=== PATIENT | male | born 1950 | race Caucasian/White ===

== ENCOUNTER → 2024-07-24 | Outpatient (CLI) | payer OTHER, SELFPAY ==
[2024-07-24 08:54] LABS: Glucose Estimated Average 103 mg/dL (80-131); Hemoglobin A1C 5.2 % Hgb (4.8-6.0)
[2024-07-24 08:58] LABS: Basophils # (Auto) 0.1 Thou/mm3 (0.0-0.2); Basophils % (Auto) 1 % (0-2.5); Eosinophils # (Auto) 0.3 Thou/mm3 (0.0-0.5); Eosinophils % (Auto) 3 % (0-10); Hematocrit 38.2 % (41.0-53.0); Immature Granulocytes % (Auto) 0 % (0-0); Immature Granulocytes Auto 0.03 Thou/mm3 (0.00-0.00); Lymphocytes # (Auto) 1.7 Thou/mm3 (1.0-4.8); Lymphocytes % (Auto) 22 % (10-50); Mean Corpuscular HGB Conc 31.4 g/dl (31.0-37.0); Mean Corpuscular Hemoglobin 30.3 pg (25.0-35.0); Mean Corpuscular Volume 97 fL (80-100); Monocytes # (Auto) 0.5 Thou/mm3 (0.0-0.8); Monocytes % (Auto) 7 % (0-12); Neutrophils # (Auto) 5.2 Thou/mm3 (1.8-7.7); Neutrophils % (Auto) 67 % (37-80); Nucleated Red Blood Cell % 0 /100 WBC (0); Platelet Count 299 Thou/mm3 (140-440); Red Blood Count 3.96 Miln/mm3 (4.50-5.90); White Blood Count 7.8 Thou/mm3 (3.8-10.6)
[2024-07-24 09:14] LABS: Alanine Aminotransferase 16 U/L (10-49); Albumin, Serum 3.8 gm/dL (3.4-4.8); Albumin/Globulin Ratio 1.4 (1.2-2.2); Alkaline Phosphatase 88 U/L (46-116); Anion Gap 7 (7-16); Aspartate Amino Transferase 17 U/L (0-34); BUN/Creatinine Ratio 21 Ratio (12-20); Bilirubin,Total 0.4 mg/dL (0.3-1.2); Blood Urea Nitrogen 21 mg/dL (9-23); Calcium 8.7 mg/dL (8.3-10.6); Calcium (Corrected) 8.9 mg/dL (8.5-10.1); Carbon Dioxide 29.6 mMol/L (20.0-31.0); Cardiac Risk Estimate 4.6 RATIO (4.0-6.7); Chloride 104 mMol/L (98-107); Cholesterol 153 mg/dL (132-200); Globulin 2.7 gm/dL (2.3-3.5); Glucose 99 mg/dL (74-106); HDL Cholesterol 33 mg/dL (40-60); LDL Cholesterol,Calculated 91 mg/dL (0-130); Osmolality,Calculated 284 (275-295); Potassium 4.5 mMol/L (3.4-5.1); Sodium 141 mMol/L (136-145); Total Protein 6.5 gm/dL (5.7-8.2); Triglycerides 143 mg/dL (30-150); eGFR > 60 See Note
[2024-07-24 09:22] LABS: Ferritin 75 ng/mL (10.5-307.3); Iron 73 mcg/dL (65-175); Percent Iron Saturation 26 % (20-55); Total Iron Binding Capacity 271 mcg/dL (250-425); Unsaturated Iron Binding 198 (225-295)
== END | disposition home or self-care (01) ==
LOC: COPL 07:21
PROVIDERS: PCP Family Medicine; Referring Provider Physician Assistant; Visit Provider Physician Assistant
DX: D50.9 Iron deficiency anemia, unspecified (principal); E78.5 Hyperlipidemia, unspecified; R73.01 Impaired fasting glucose
CPT/HCPCS: 36415; 80053; 80061; 82728; 83036; 83540; 83550; 85025

== ENCOUNTER → 2024-10-27 | Outpatient (CLI) | payer OTHER, SELFPAY ==
--- NOTE | 2024-10-27 | XR_ITS ---
Examination:Left hip AP, lateral, AP pelvis 3 views Technique: Hip AP lateral, AP pelvis, 3 views Exam date and time:October 27, 2024 1303 hours INDICATIONS: Patient fell 3 days ago with injury to the left hip, left hip pain. FINDINGS: No left hip fracture or dislocation Right hip bones of the pelvis intact Moderate bilateral hip osteoarthritis IMPRESSION: No acute hip or pelvic fracture.
== END | disposition home or self-care (01) ==
LOC: CDIM 11:42
PROVIDERS: PCP Physician Assistant; Referring Provider Physician Assistant; Visit Provider Physician Assistant
DX: M25.552 Pain in left hip (principal)
CPT/HCPCS: 73502

== ENCOUNTER → 2024-11-27 | Outpatient (CLI) | payer OTHER, SELFPAY ==
[2024-11-27 15:48] LABS: Collection Type, Urine Clean Catch
[2024-11-27 16:10] LABS: Basophils # (Auto) 0.1 Thou/mm3 (0.0-0.2); Basophils % (Auto) 1 % (0-2.5); Eosinophils # (Auto) 0.3 Thou/mm3 (0.0-0.5); Eosinophils % (Auto) 2 % (0-10); Hematocrit 35.3 % (41.0-53.0); Hemoglobin 11.6 g/dL (13.5-16.0); Immature Granulocytes % (Auto) 0 % (0-0); Immature Granulocytes Auto 0.05 Thou/mm3 (0.00-0.00); Lymphocytes # (Auto) 1.6 Thou/mm3 (1.0-4.8); Lymphocytes % (Auto) 14 % (10-50); Mean Corpuscular HGB Conc 32.9 g/dl (31.0-37.0); Mean Corpuscular Hemoglobin 29.4 pg (25.0-35.0); Mean Corpuscular Volume 90 fL (80-100); Monocytes # (Auto) 0.9 Thou/mm3 (0.0-0.8); Monocytes % (Auto) 8 % (0-12); Neutrophils # (Auto) 8.6 Thou/mm3 (1.8-7.7); Neutrophils % (Auto) 75 % (37-80); Nucleated Red Blood Cell % 0 /100 WBC (0); Platelet Count 466 Thou/mm3 (140-440); RDW Standard Deviation 44.9 fL (35.1-43.9); Red Blood Count 3.94 Miln/mm3 (4.50-5.90); White Blood Count 11.5 Thou/mm3 (3.8-10.6)
[2024-11-27 16:17] LABS: Bilirubin,Urine Negative (Negative); Blood,Urine 1+ (Negative); Clarity,Urine Clear (Clear/Hazy); Color,Urine Yellow (Lt Yel-Yel); Culture Indicated,Urine Not Indicated; Glucose, Urine Negative (Negative); Ketones,Urine Negative (Negative); Leukocyte Esterase,Urine Negative (Negative); Nitrite,Urine Negative (Negative); PH,Urine 5.5 (5.0-7.0); Protein,Urine Trace (Neg - Trace); RBC,Urine 8 /hpf (0-3); Squamous Epithelial Cell,Urine < 1 /hpf (0-5); Urobilinogen,Urine Negative mg/dL (0.0-1.0); WBC,Urine 2 /hpf (0-5)
[2024-11-27 16:23] LABS: Alanine Aminotransferase 26 U/L (10-49); Albumin, Serum 3.7 gm/dL (3.4-4.8); Albumin/Globulin Ratio 1.2 (1.2-2.2); Alkaline Phosphatase 76 U/L (46-116); Anion Gap 9 (7-16); BUN/Creatinine Ratio 21 Ratio (12-20); Bilirubin,Total 0.4 mg/dL (0.3-1.2); Blood Urea Nitrogen 25 mg/dL (9-23); Calcium 9.1 mg/dL (8.3-10.6); Calcium (Corrected) 9.3 mg/dL (8.5-10.1); Carbon Dioxide 29.3 mMol/L (20.0-31.0); Chloride 103 mMol/L (98-107); Creatinine (Component) 1.2 mg/dL (0.6-1.3); Globulin 3.2 gm/dL (2.3-3.5); Glucose 93 mg/dL (74-106); Osmolality,Calculated 285 (275-295); Sodium 141 mMol/L (136-145); Total Protein 6.9 gm/dL (5.7-8.2); eGFR > 60 See Note
== END | disposition home or self-care (01) ==
LOC: CDIM 14:43 → COPL 15:09
PROVIDERS: PCP Physician Assistant; Referring Provider Physician Assistant; Visit Provider Physician Assistant
DX: R10.9 Unspecified abdominal pain (principal); R50.9 Fever, unspecified
CPT/HCPCS: 36415; 80053; 81001; 85025

== ENCOUNTER → 2024-11-29 | Outpatient (CLI) | payer OTHER, SELFPAY ==
--- NOTE | 2024-11-29 14:53 | XR_ITS ---
Examination: CT abdomen and pelvis without contrast. Coronal 3-D reconstructions. Sagittal 2-D reconstructions. Date and time of exam:08/01/2024 1510 hours Comparison July 23, 2023 INDICATIONS: Right lower abdomen pain left lower abdominal pain and fever today, history acute sigmoid diverticulitis with peridiverticular abscess on July 12, 2023 CTDI: vol (mGy): 9.76 DLP: (mGycm): 597 Technique: Axial images of the abdomen have been obtained, 3 mm slice thickness Intravenous contrast material has not been administered. Low dose protocols were performed. One or more of the following dose reduction techniques were used; automated exposure control, adjustment of the mA and/or KV according to patient size, use of iterative reconstruction technique. Findings: No focal liver or splenic lesion No gallstones No pancreatic or adrenal mass No renal or ureteral calculi Abdominal aortic calcification no aneurysmal dilatation No pericecal inflammatory change Colonic diverticulosis Acute diverticulitis Peridiverticular abscess again depicted, on the current study 5 cm Transverse dimension Bladder intact IMPRESSION: Acute sigmoid diverticulitis 5 cm peridiverticular abscess
== END | disposition home or self-care (01) ==
PROVIDERS: PCP Family Medicine; Referring Provider Physician Assistant; Visit Provider Physician Assistant
DX: K57.20 Diverticulitis of large intestine with perforation and abscess without bleeding (principal)
CPT/HCPCS: 74176

== ENCOUNTER → 2024-12-04 | Outpatient (CLI) | payer OTHER, SELFPAY ==
[2024-12-04 13:50] LABS: Basophils # (Auto) 0.1 Thou/mm3 (0.0-0.2); Basophils % (Auto) 1 % (0-2.5); Eosinophils # (Auto) 0.3 Thou/mm3 (0.0-0.5); Eosinophils % (Auto) 3 % (0-10); Hematocrit 35.4 % (41.0-53.0); Immature Granulocytes % (Auto) 1 % (0-0); Immature Granulocytes Auto 0.05 Thou/mm3 (0.00-0.00); Lymphocytes # (Auto) 1.3 Thou/mm3 (1.0-4.8); Lymphocytes % (Auto) 14 % (10-50); Mean Corpuscular HGB Conc 31.1 g/dl (31.0-37.0); Mean Corpuscular Hemoglobin 28.9 pg (25.0-35.0); Mean Corpuscular Volume 93 fL (80-100); Monocytes # (Auto) 0.5 Thou/mm3 (0.0-0.8); Monocytes % (Auto) 6 % (0-12); Neutrophils # (Auto) 6.8 Thou/mm3 (1.8-7.7); Neutrophils % (Auto) 76 % (37-80); Nucleated Red Blood Cell % 0 /100 WBC (0); Platelet Count 453 Thou/mm3 (140-440); RDW Standard Deviation 47.1 fL (35.1-43.9); Red Blood Count 3.81 Miln/mm3 (4.50-5.90)
== END | disposition home or self-care (01) ==
LOC: COPL 12:24
PROVIDERS: PCP Family Medicine; Referring Provider Physician Assistant; Visit Provider Physician Assistant
DX: K57.00 Diverticulitis of small intestine with perforation and abscess without bleeding (principal)
CPT/HCPCS: 36415; 85025

== ENCOUNTER → 2024-12-18 | Outpatient (CLI) | payer OTHER, SELFPAY ==
--- NOTE | 2024-12-18 14:30 | XR_ITS ---
Examination: CT abdomen and pelvis without contrast. Coronal 3-D reconstructions. Sagittal 2-D reconstructions. Date and time of exam:December 18, 2024 1533 hours COMPARISON: November 29, 2024 INDICATIONS: Left lower abdominal pain 2 weeks, history diverticulitis CTDI: vol (mGy): 9.62 DLP: (mGycm): 604 Technique: Axial images of the abdomen have been obtained, 3 mm slice thickness Intravenous contrast material has not been administered. Low dose protocols were performed. One or more of the following dose reduction techniques were used; automated exposure control, adjustment of the mA and/or KV according to patient size, use of iterative reconstruction technique. Findings: Scarring in the lower lung zones No focal liver or splenic lesions No gallstones No pancreatic or adrenal mass No renal or ureteral calculi, no hydronephrosis No bowel obstruction No pericecal inflammatory change Acute diverticulitis in the sigmoid colon, axial image 163, smaller peridiverticular abscess, measuring 34 mm currently Intact urinary bladder IMPRESSION: Acute diverticulitis sigmoid colon Smaller peridiverticular abscess, 34 mm compared to 15 mm on the prior study
== END | disposition home or self-care (01) ==
PROVIDERS: PCP Physician Assistant; Referring Provider Physician Assistant; Visit Provider Physician Assistant
DX: K57.00 Diverticulitis of small intestine with perforation and abscess without bleeding (principal)
CPT/HCPCS: 74176

== ENCOUNTER 2025-01-10 06:18 | Inpatient (IN) | payer MEDICARE, OTHER, SELFPAY ==
[2025-01-10 06:20] VITALS: BP 135/80; PULSE 86; RESP 18; TEMP 36.4; O2SAT 96; BMI 39.6
--- NOTE | 2025-01-10 06:47 | PD.EDRME ---
Rapid Medical Screening Exam RME Arrival date/time: 01/10/25 06:18 Chief Complaint: Abdominal Pain Vital signs: Vital Signs Temperature 97.6 F 01/10/25 06:20 Pulse Rate 86 01/10/25 06:20 Respiratory Rate 18 01/10/25 06:20 Blood Pressure 135/80 H 01/10/25 06:20 Pulse Oximetry (%) 96 01/10/25 06:20 Oxygen Delivery Method Room Air 01/10/25 06:20 Pulse ox room air 96% Vital signs reviewed by provider: Yes RME Narrative: 74-year-old male presents to the ED with a complaint of right lower quadrant pain that began this last Wednesday with up to 3 episodes that began at 0300 Wednesday morning into Wednesday. Also complains of an intermittent fever to a temp of 101. Past medical history includes diverticulitis for which he stayed in the hospital up to 3 days.
--- NOTE | 2025-01-10 06:50 | XR_ITS ---
Examination: CT abdomen with intravenous contrast CT pelvis with intravenous contrast 2-D coronal reconstructions 2-D sagittal reconstructions Date and time of exam:January 10, 2025 1041 hours INDICATIONS: Right lower abdominal pain and fever beginning today. CTDI: vol (mGy) 10.7 DLP: (mGycm) 376 Technique: Multiple axial sections of the abdomen and pelvis have been obtained. 64 slice high-resolution scanner used. 3 mm axial sections have been obtained, post intravenous injection 60 cc [id number] 2-D sagittal, coronal reconstructions obtained. Low dose protocols were performed. One or more of the following dose reduction techniques were used; automated exposure control, adjustment of the mA and/or KV according to patient size, use of iterative reconstruction technique. Findings: Opacity left base consistent with pneumonia No focal liver or splenic lesions No gallstones No pancreatic or adrenal mass No renal or ureteral calculi, no hydronephrosis Aorta normal size Normal appendix No bowel obstruction Mild acute diverticulitis sigmoid colon Peridiverticular abscess 5.7 x 4.8 cm IMPRESSION: Left base pneumonia Acute sigmoid diverticulitis Peridiverticular abscess 4.8 x 5.7 cm
[2025-01-10 07:30] LABS: Collection Type, Urine Clean Catch
[2025-01-10 07:36] LABS: Bilirubin,Urine Negative (Negative); Blood,Urine 1+ (Negative); Clarity,Urine Clear (Clear/Hazy); Color,Urine Yellow (Lt Yel-Yel); Glucose, Urine Negative (Negative); Ketones,Urine 1+ (Negative); Leukocyte Esterase,Urine Positive (Negative); Nitrite,Urine Negative (Negative); PH,Urine 5.5 (5.0-7.0); Protein,Urine Negative (Neg - Trace); RBC,Urine 3 /hpf (0-3); Specific Gravity,Urine 1.024 (1.001-1.035); Squamous Epithelial Cell,Urine < 1 /hpf (0-5); Urobilinogen,Urine Negative mg/dL (0.0-1.0); WBC,Urine 1 /hpf (0-5)
[2025-01-10 07:44] LABS: Basophils # (Auto) 0.1 Thou/mm3 (0.0-0.2); Basophils % (Auto) 1 % (0-2.5); Eosinophils # (Auto) 0.3 Thou/mm3 (0.0-0.5); Eosinophils % (Auto) 3 % (0-10); Hematocrit 38.7 % (41.0-53.0); Hemoglobin 12.3 g/dL (13.5-16.0); Immature Granulocytes Auto 0.04 Thou/mm3 (0.00-0.00); Lymphocytes # (Auto) 1.2 Thou/mm3 (1.0-4.8); Lymphocytes % (Auto) 13 % (10-50); Mean Corpuscular HGB Conc 31.8 g/dl (31.0-37.0); Mean Corpuscular Hemoglobin 29.6 pg (25.0-35.0); Mean Corpuscular Volume 93 fL (80-100); Monocytes # (Auto) 0.8 Thou/mm3 (0.0-0.8); Monocytes % (Auto) 9 % (0-12); Neutrophils # (Auto) 6.5 Thou/mm3 (1.8-7.7); Neutrophils % (Auto) 74 % (37-80); Nucleated Red Blood Cell # 0.00 Thou/mm3 (0.00-0.00); Nucleated Red Blood Cell % 0 /100 WBC (0); Platelet Count 339 Thou/mm3 (140-440); RDW Standard Deviation 52.0 fL (35.1-43.9); Red Blood Count 4.15 Miln/mm3 (4.50-5.90); White Blood Count 8.9 Thou/mm3 (3.8-10.6)
[2025-01-10 08:16] LABS: Alanine Aminotransferase 8 U/L (10-49); Albumin, Serum 3.8 gm/dL (3.4-4.8); Albumin/Globulin Ratio 1.1 (1.2-2.2); Alkaline Phosphatase 66 U/L (46-116); Anion Gap 9 (7-16); Aspartate Amino Transferase 16 U/L (0-34); BUN/Creatinine Ratio 13 Ratio (12-20); Bilirubin,Total 0.5 mg/dL (0.3-1.2); Blood Urea Nitrogen 14 mg/dL (9-23); Calcium 9.1 mg/dL (8.3-10.6); Calcium (Corrected) 9.3 mg/dL (8.5-10.1); Carbon Dioxide 28.5 mMol/L (20.0-31.0); Chloride 103 mMol/L (98-107); Creatinine (Component) 1.1 mg/dL (0.6-1.3); Estimated Creatinine Clearance 57.0 mL/min (>60); Globulin 3.4 gm/dL (2.3-3.5); Glucose 99 mg/dL (74-106); Lipase 36 U/L (12-53); Osmolality,Calculated 279 (275-295); Potassium 4.1 mMol/L (3.4-5.1); Sodium 140 mMol/L (136-145); Total Protein 7.2 gm/dL (5.7-8.2); eGFR > 60 See Note
[2025-01-10 10:24] VITALS: BP 132/78; PULSE 80; RESP 16; TEMP 36.8; O2SAT 97
--- NOTE | 2025-01-10 11:18 | PD.EDABDPN ---
ED Abdominal Pain RME/HPI General Chief Complaint: Abdominal Pain Stated complaint: RLQ ABD PAIN FEVER VOMITING Time seen by provider: 01/10/25 10:18 Arrival date/time: 01/10/25 06:18 Limitations: no limitations RME / HPI RME / HPI narrative: Patient is a 74-year-old male who is here today with a 4 to 5-day history of right lower quadrant pain. He endorses some mild nausea and vomiting and loose stools without blood. He states he had some fevers over the weekend that have since resolved. He states he has a history of prior diverticulitis, and states he sees Dr. Kan for some sort of a stomach issue that he cannot describe. Past chart notes reveal that he is seen by Dr. Kan for esophagitis and gastritis. He states he is takes a daily lipid medication and no other medicines. He denies any other chronic disease. He denies any urinary frequency or dysuria. No gross hematuria. He states his pain has been intermittent and worse with movements. He has no other acute complaints or concerns. Related Data Home Medications ?Medication ?Instructions ?Recorded ?Confirmed atorvastatin 10 mg tablet 10 mg PO QDAY 02/28/24 02/28/24 Previous Rx's ?Medication ?Instructions ?Recorded ciprofloxacin HCl 500 mg tablet 500 mg PO Q12H #14 tabs 01/10/25 (Cipro) metronidazole 500 mg tablet 500 mg PO BID #14 tabs 01/10/25 Allergies Allergy/AdvReac Type Severity Reaction Status Date / Time No Known Allergies Allergy Verified 01/10/25 06:28 Review of Systems Review of Systems Systems Reviewed: All systems reviewed, normal except as documented ED Exam General Limitations: Present no limitations General appearance: Present alert and in no apparent distress Head Head exam: Present atraumatic Eye Eye exam: Present normal appearance, PERRL and EOMI ENT ENT exam: Present normal exam, normal oropharynx and mucous membranes moist Neck Neck exam: Present normal inspection, full ROM and trachea midline Chest Chest inspection: Present normal inspection and symmetric chest wall rise Respiratory Respiratory exam: Present normal lung sounds bilaterally Cardiovascular Cardiovascular exam: Present regular rate, normal rhythm and normal heart sounds Abdominal Exam Abdominal exam: Present soft; Absent distention, tenderness or guarding Extremities Exam Extremities exam: Present normal inspection and full ROM Back Exam Back exam: Present normal inspection and full ROM Neurological Exam Neurological exam: Present alert and oriented X3 Psychiatric Psychiatric exam: Present normal affect and normal mood Skin Skin exam: Present warm, dry, intact and normal color Course Quality Measures none Orders Category Date Time Status CT Screening NOW Care 01/10/25 06:[address] Screening X1 Care 01/10/25 06:[address] abdomen pelvis w con Stat Exams 01/10/25 06:50 Completed CBC Stat Lab 01/10/25 07:18 Completed Comprehensive Metabolic Panel Stat Lab 01/10/25 07:18 Completed Lipase Stat Lab 01/10/25 07:18 Completed Urinalysis Stat Lab 01/10/25 07:04 Completed Ciprofloxacin HCl [Ciprofloxacin] Med 01/10/25 12:58 Once 500 mg PO X1 ONE metroNIDAZOLE [Flagyl] Med 01/10/25 12:58 Once 500 mg PO X1 ONE Vital Signs Vital signs: Vital Signs Temperature 97.6 F 01/10/25 06:20 Pulse Rate 86 01/10/25 06:20 Respiratory Rate 18 01/10/25 06:20 Blood Pressure 135/80 H 01/10/25 06:20 Pulse Oximetry (%) 96 01/10/25 06:20 Oxygen Delivery Method Room Air 01/10/25 06:20 Abdominal Pain MDM MDM Narrative MDM Narrative:: Patient is a 74-year-old male who is here today with a 4 to 5-day history of right lower quadrant pain. He endorses some mild nausea and vomiting and loose stools without blood. He states he had some fevers over the weekend that have since resolved. He states he has a history of prior diverticulitis, and states he sees Dr. Kan for prior diverticulitis. He states he treats this with ciprofloxacin and metronidazole. Past chart notes reveal that he is seen by Dr. Kan for esophagitis and gastritis. He states he is takes a daily lipid medication and no other medicines. He denies any other chronic disease. He denies any urinary frequency or dysuria. No gross hematuria. He states his pain has been intermittent and worse with movements. He has no other acute complaints or concerns. On exam, patient is nontoxic-appearing in no visible signs distress. Abdomen is soft and supple. Workup reveals no leukocytosis. There is no significant anemia. His metabolic panel is unremarkable. UA is unremarkable. CT of the abdomen pelvis reveals diverticulitis no mention or perforation. Patient is given a dose of metronidazole and ciprofloxacin here. He states that he has no pain at the time of our revisit when we discussed his results. He will be discharged with prescription of ciprofloxacin and metronidazole. He states he lives 5 miles away with his son who drives. We discussed return precautions. He agrees return as needed for any worsening or emergent changes. Patient data External records reviewed:: None Clinical information provided by:: patient Social determinants that could affect healthcare access:: none Patient has the following chronic illnesses:: Hyperlipidemia How is presenting disease/condition affected by chronic disease/condition?: uneffected by Evaluation data The following diagnostics were reviewed and interpreted by me:: lab results (No leukocytosis or metabolic derangement) and radiology exam(s) (Diverticulitis without perforation) Lab and/or radiology exams considered but not ordered:: n/a Interpretation Summary: Acute diverticulitis Medications / Prescriptions Medications or Prescriptions considered but not ordered:: n/a Medication administrations:: Ciprofloxacin and metronidazole Consultations Consultation(s) initiated? (list below): No Diagnosis Differential diagnosis abdominal pain: abdominal pain, constipation, diverticulitis and small bowel obstruction Most likely diagnosis given after review of the tests above:: Acute diverticulitis Admission Indicated Admission indicated?: not indicated Admission Request Was there a request for admission?: No Disposition Plan Disposition Plan: Discharge Discharge Attestation Discharge Attestation: The patient and all family members were given an opportunity to ask questions and understood the discharge instructions. Discharge instructions specifically effects, indications for sooner follow up or return to the emergency department, and the expected course of current diagnosis. Patient condition: Stable Discharge Plan Plan Patient Disposition: HOME (Self Care) Patient condition on transfer: Stable Prescriptions/Referrals Prescriptions/Med Rec: New metronidazole 500 mg tablet 500 mg PO BID Qty: 14 0RF ciprofloxacin HCl [Cipro] 500 mg tablet 500 mg PO Q12H Qty: 14 0RF No Action atorvastatin 10 mg tablet 10 mg PO QDAY Patient Comments: TAKE 1 TABLET BY MOUTH EVERY DAY Referrals: Kailey Kan MD [Physician] - In 1 week Ebony Basurto MD [Primary Care Provider] - In 1 week Problem List Clinical Impression: Diverticulitis Patient/Caregiver Discharge Instructions Education Materials: ED Diverticulitis Additional Instructions: - Use provided antibiotics twice daily as prescribed. - Contact Dr. Kan, your epic prelude analyst, to schedule close follow-up appointment. - Please return to the emergency room at anytime for any worsening changes including increased pain, fever, or any other emergent concerns. Print Language: Chadian Stand Alone Forms: [employer] Award Info., Patient Portal Info Letter
[2025-01-10 12:48] VITALS: BP 129/77; PULSE 82; RESP 20; TEMP 36.6; O2SAT 98
--- NOTE | 2025-01-10 14:51 | PC.NURSE ---
consulted dr goodman regarding ct drain abscess, pt has platelets 339, no current PT/PTT/INTMD stated to order coagulation labs and procedure will be rescheduled for tomorrow 01/11/2025
[2025-01-10 15:34] VITALS: BP 146/77; PULSE 81; RESP 18; TEMP 36.9; O2SAT 98
[2025-01-10 16:04] LABS: INR 1.0 (0.9-1.3); Partial Thromboplastin Time 24.4 Seconds (22.0-36.0); Prothrombin Time 11.4 Seconds (9.0-12.2)
--- NOTE | 2025-01-10 17:08 | ESHP_ITS ---
<Statement entered by Debra Hudson MD - 01/11/25 14:59> I have reviewed the note and agree with the resident's assessment & plan with exceptions as below. I have personally reviewed labs, imaging, home meds/prior records, examined the patient, formulated and discussed management plan with the IM team. 74-year-old male with a past medical history of diverticulitis with abscess requiring CT drain, gastritis, and esophagitis, comes in for an evaluation of abdominal pain, was found to have peridiverticular 4.8 x 5.[address] scan. Will consult IR for CT abscess drain to be set for tomorrow. Will hold DVT prophylaxis, order coagulation panel and keep patient n.p.o. at midnight. Will resume home meds upon medication reconciliation. Will continue with Levaquin and Flagyl as patient could have some pneumonia seen on chest imaging and this will cover for strep pneumo as well as GI infection. Repeat hematology and chemistry in a.m. Debra Hudson, PGY-2 Internal Medicine Documentation for date of: 01/10/25 HPI History of Present Illness History of present illness: 74-year-old male with a past medical history of diverticulitis, gastritis, and esophagitis, presenting with five days of right lower quadrant abdominal pain. He describes the pain as a 1/10 in severity, intermittent, and exacerbated by movement, with no alleviating factors and no radiation. He notes a similar episode of pain 1.5 years ago, which was located in the left lower quadrant, worsened, and required hospitalization. He reports associated mild nausea and non-bloody emesis on the first two days of his symptoms, which has since resolved. He also reports decreased oral intake due to the pain and nausea. He denies diarrhea or constipation; his last bowel movement was two days ago. He experienced subjective fevers for two days, with his last recorded temperature of 101?F on 01/08/2025. He denies any urinary frequency, dysuria, or gross hematuria. PHx: diverticulitis, gastritis, and esophagitis (patient follows Dr. Kan for gastritis and esophagitis management) Surgical Hx: Prostatectomy in 2014 due to prostate cancer, hernia repair 30 years ago Allergy history: Pollen and dust, no known drug allergy ED course: Initial vitals included temperature 97.6, heart rate 86, respiratory rate 18, oxygen saturation 96% on room air. No notable lab findings on blood work, creatinine 1.1, glucose 99, LFTs within normal limits, no anemia. CT abdomen/pelvis showed left base pneumonia, acute sigmoid diverticulitis, peridiverticular abscess measuring 4.8 x 5.7 cm, no mention of perforation. Dr. Kan, professional nursing tutor, was made aware, he would like for interventional radiology to drain into the abscess. Patient received a dose of ciprofloxacin and metronidazole x 1 while in ED. The patient was admitted for the management of diverticulitis with peridiverticular abscess. Exam Vital Signs Temp Pulse Resp BP Pulse Ox O2 Del Method 98.4 F 81 18 146/77 H 98 Room Air 01/10/25 15:34 01/10/25 15:34 01/10/25 15:34 01/10/25 15:34 01/10/25 15:34 01/10/25 15:34 Narrative Exam General: Alert, laying in bed on a 30 degree incline, no acute distress, obese Skin: Warm, dry, intact, no obvious rash. Head: Normocephalic, atraumatic. Cardiovascular: S1+S2. Regular rate and rhythm, no murmurs appreciated on auscultation. Respiratory: Lungs are clear to auscultation, respirations unlabored, no crackles, no wheezing. Gastrointestinal: Soft, mild tenderness to right lower quadrant. No guarding or rebound tenderness. No organomegaly. Bowel sounds present. Extremities: No edema, no cyanosis, no clubbing. 2+ radial pulse bilaterally, 2+ posterior tibial pulse bilaterally. Neuro: No focal deficits observed. Conversant, moving all extremities. No overt cerebellar signs/incoordination. Psychiatric: Cooperative, appropriate affect Results: Labs 01/11/25 04:23 01/11/25 04:23 Labs: Short CBC 01/10/25 Range/Units 07:18 WBC 8.9 (3.8-10.6) Thou/mm3 Hgb 12.3 L (13.5-16.0) g/dL Hct 38.7 L (41.0-53.0) % Plt Count 339 D (140-440) Thou/mm3 BMP 01/10/25 07:18 Sodium 140 Potassium 4.1 Chloride 103 Carbon Dioxide 28.5 BUN 14 Creatinine 1.1 Glucose 99 Calcium 9.1 Liver Function 01/10/25 Range/Units 07:18 Total Bilirubin 0.5 (0.3-1.2) mg/dL AST 16 (0-34) U/L ALT 8 L (10-49) U/L Alkaline Phosphatase 66 (46-116) U/L Albumin 3.8 (3.4-4.8) gm/dL Urine 01/10/25 Range/Units 07:04 Urine Color Yellow (Lt Yel-Yel) Urine Clarity Clear (Clear/Hazy) Urine pH 5.5 (5.0-7.0) Ur Specific Denio 1.024 (1.001-1.035) Urine Protein Negative (Neg - Trace) Urine Glucose (UA) Negative (Negative) Quality Measures Quality Measures none Advance care planning discussed with:: patient Medications Home Medications and Allergies Home Medications ?Medication ?Instructions ?Recorded ?Confirmed ?Type atorvastatin 10 mg tablet 10 mg PO QDAY 02/28/2401/10 History Allergies Allergy/AdvReac Type Severity Reaction Status Date / Time No Known Allergies Allergy Verified 01/10/25 06:28 Visit Medications Acetaminophen (Acetaminophen 325 Mg Tablet) 650 mg PO Q6HR PRN PRN Reason: Fever >100.4 or pain 1-3 Stop: 02/09/25 16:25 Benzonatate (Benzonatate 100 Mg Capsule) 200 mg PO Q8HR PRN; Protocol PRN Reason: cough Stop: 02/09/25 16:20 Levofloxacin/Dextrose (Levaquin Ivpb) 750 mg in 150 mls @ 100 mls/hr IV QDAY [facility] Stop: 01/17/25 16:29 Metronidazole (Flagyl 500 Mg Iv) 500 mg in 100 mls @ 200 mls/hr IV Q8HR [facility] Stop: 01/17/25 16:20 Morphine Sulfate (Morphine Sulf Inj 10 Mg/Ml Vial) 2 mg IVP Q4H PRN PRN Reason: abdominal pain Stop: 01/15/25 16:34 Polyethylene Glycol (Polyethylene Glycol 17 Gm Packet) 17 gm PO QDAY [facility] Stop: 02/10/25 08:59 Discontinued Medications Ciprofloxacin (Ciprofloxacin Hcl 250 Mg Tablet) 500 mg PO X1 ONE Stop: 01/10/25 12:59 Last Admin: 01/10/25 13:33 Dose: Not Given Metronidazole (Metronidazole 250 Mg Tablet) 500 mg PO X1 ONE Stop: 01/10/25 12:59 Last Admin: 01/10/25 13:33 Dose: Not Given Assessment & Plan Plan Assessment: 74-year-old male with a past medical history of diverticulitis, gastritis, and esophagitis, presenting with five days of right lower quadrant abdominal pain. Patient admitted for for the management of diverticulitis with peridiverticular abscess. #Diverticulitis #Peridiverticular abscess CT abdomen/pelvis 01/10/25 showed left base pneumonia, acute sigmoid diverticulitis, peridiverticular abscess measuring 4.8 x 5.7 cm, no mention of perforation Plan: ? Interventional radiology to perform drainage tomorrow ? N.p.o. from midnight, Coag panel in AM ? Metronidazole 500 mg IV every 8 hours ? Multimodal analgesia including Tylenol and breakthrough morphine #Community-acquired pneumonia Patient had 2 days fever, new onset cough x 5 days, no sputum production CT Abdo/pelvis showed left base pneumonia Will treat with Levaquin which will also cover for above Plan: ? Levofloxacin 750 mg IV daily ? Tessalon Perles as needed #Hyperlipidemia Chronic Plan: ? Resumed home Lipitor 10 mg at bedtime ? Follow-up with lipid panel Health Maintenance: Diet: clear liquid diet now. NPO from midnight GI prophylaxis: none at present DVT prophylaxis: ENOXAPARIN Antibiotics: Levoflox + Flagyl CODE STATUS: FULL Disposition: MedSurg Case discussed with my attending Dr. Bedoya, and senior resident, Dr. Tristan Fuentes MD PGY-1 Attending Provider Attestation/Addendum After examination of the patient and review of the clinical data I feel that this patient needs admission to the hospital for further treatment/evaluation. I have discussed and was present for the essential components of the history, physical examination, diagnosis, and treatment plan with the resident. I agree with the patient's care as documented by the resident and amended herein by me. Gil Bedoya DO. Although this document has been carefully reviewed, there may still be some phonetic and other typographical errors. These errors are purely grammatical due to imperfections in the software program and should not be construed in any way to compromise the substance of the patient's medical care during this visit. Patient seen and evaluated in the ED. Patient is a 74-year-old male with a significant past medical history of diverticulitis, former episode of peridiverticular abscess, gastritis and esophagitis who presented with right lower quadrant abdominal pain and tenderness which began approximately 5 days prior to admission. Patient has had similar episodes of abdominal pain in the past approximate 1.5 years ago in which she was diagnosed with diverticulitis and peridiverticular abscess at that time. He required hospitalization at that time. He reports mild nausea and vomiting as well as cough. Patient subsequently admitted for diverticulitis with peridiverticular abscess and pneumonia. In the ED, vital signs stable, patient afebrile, labs largely unremarkable, UA was negative, CT abdomen and pelvis demonstrated left lower lobe pneumonia, sigmoid diverticulitis and peridiverticular abscess measuring 4.8 x 5.7 cm. Patient subsequently admitted to [facility], orders placed for an IR drain to be placed which will occur tomorrow, patient also placed on IV antibiotics, levofloxacin 750 mg daily ID which will also cover for the patient's pneumonia, and Flagyl 500 mg every 8 hours. May also consider GEN surge consult if abscess does not resolve with drain. Will also give the patient Tessalon for cough as needed. Will continue to monitor closely, the patient is stable thus far
[2025-01-10] MEDS: BENZONATATE 100 MG CAPSULE 200 MG PO (17:17)
[2025-01-10] MEDS: metroNIDAZOLE/NS 500 MG IVPB 500 MG/100 ML BAG 200 MG IV ×2 (17:21→21:15)
[2025-01-10] MEDS: LEVOFLOXACIN/D5W 750MG IVPB 750 MG/150 ML BAG 100 MG IV (17:51)
[2025-01-10 18:04] VITALS: BMI 40.0
--- NOTE | 2025-01-10 19:48 | PC.NURSE ---
spoke with dr george regarding lovenox medication since patient will be going to IR for procedure tomorrow, dr george states yes to give the medication.
[2025-01-10 20:00] VITALS: BP 134/90; PULSE 89; PULSE 92; RESP 18; TEMP 37.4; O2SAT 96
[2025-01-10] MEDS: ATORVASTATIN CALCIUM 10 MG TABLET PO (20:32)
[2025-01-10] MEDS: ENOXAPARIN SOD INJ 40 MG/0.4 ML SYRINGE SC (20:32)
[2025-01-11] VITALS (14 sets, daily range): BP systolic 110–141; BP diastolic 61–76; PULSE 77–103; RESP 15–20; TEMP 36.4–36.9; O2SAT 95–99
[2025-01-11] MEDS: metroNIDAZOLE/NS 500 MG IVPB 500 MG/100 ML BAG 200 MG IV ×3 (05:22→21:52)
[2025-01-11 05:34] LABS: Basophils # (Auto) 0.1 Thou/mm3 (0.0-0.2); Basophils % (Auto) 1 % (0-2.5); Eosinophils # (Auto) 0.2 Thou/mm3 (0.0-0.5); Eosinophils % (Auto) 2 % (0-10); Hematocrit 35.7 % (41.0-53.0); Hemoglobin 11.5 g/dL (13.5-16.0); Immature Granulocytes Auto 0.04 Thou/mm3 (0.00-0.00); Lymphocytes # (Auto) 1.3 Thou/mm3 (1.0-4.8); Lymphocytes % (Auto) 13 % (10-50); Mean Corpuscular HGB Conc 32.2 g/dl (31.0-37.0); Mean Corpuscular Hemoglobin 29.9 pg (25.0-35.0); Mean Corpuscular Volume 93 fL (80-100); Monocytes # (Auto) 1.0 Thou/mm3 (0.0-0.8); Monocytes % (Auto) 10 % (0-12); Neutrophils # (Auto) 7.2 Thou/mm3 (1.8-7.7); Neutrophils % (Auto) 74 % (37-80); Nucleated Red Blood Cell # 0.00 Thou/mm3 (0.00-0.00); Nucleated Red Blood Cell % 0 /100 WBC (0); Platelet Count 317 Thou/mm3 (140-440); RDW Standard Deviation 52.3 fL (35.1-43.9); Red Blood Count 3.84 Miln/mm3 (4.50-5.90); White Blood Count 9.8 Thou/mm3 (3.8-10.6)
[2025-01-11 05:40] LABS: INR 1.1 (0.9-1.3); Partial Thromboplastin Time 29.8 Seconds (22.0-36.0); Prothrombin Time 12.1 Seconds (9.0-12.2)
[2025-01-11 06:05] LABS: Alanine Aminotransferase < 7 U/L (10-49); Albumin, Serum 3.3 gm/dL (3.4-4.8); Albumin/Globulin Ratio 1.1 (1.2-2.2); Alkaline Phosphatase 58 U/L (46-116); Anion Gap 9 (7-16); Aspartate Amino Transferase 13 U/L (0-34); BUN/Creatinine Ratio 11 Ratio (12-20); Bilirubin,Total 0.5 mg/dL (0.3-1.2); Blood Urea Nitrogen 10 mg/dL (9-23); Calcium 8.5 mg/dL (8.3-10.6); Calcium (Corrected) 9.1 mg/dL (8.5-10.1); Carbon Dioxide 27.0 mMol/L (20.0-31.0); Chloride 103 mMol/L (98-107); Creatinine (Component) 0.9 mg/dL (0.6-1.3); Estimated Creatinine Clearance 70.1 mL/min (>60); Globulin 3.1 gm/dL (2.3-3.5); Glucose 85 mg/dL (74-106); Magnesium 1.7 mg/dL (1.6-2.6); Osmolality,Calculated 275 (275-295); Phosphorous 3.5 mg/dL (2.4-5.1); Potassium 4.1 mMol/L (3.4-5.1); Sodium 139 mMol/L (136-145); Thyroid Stimulating Hormone 2.64 uIU/mL (0.55-4.78); Total Protein 6.4 gm/dL (5.7-8.2); eGFR > 60 See Note
--- NOTE | 2025-01-11 08:00 | XR_ITS ---
Examination: CT-guided percutaneous catheter drainage anterior pelvic abscess CT pelvis without intravenous contrast INDICATIONS: Acute sigmoid diverticulitis with 4.8 x 5.7 cm peridiverticular abscess on CT abdomen pelvis January 10, 2025 Date and time of procedure: January 11, 2025 1139 hours Informed consent provided. A timeout was completed verifying correct patient, procedure, site and positioning. Technique: Axial 3 mm sections were obtained for localization of the pelvic abscess Appropriate area is marked. The patient's site was prepped and draped in sterile fashion Maximal sterile barrier technique utilized, including hand hygiene Local anesthesia was obtained with 1% lidocaine. Low dose protocols were performed. One or more of the following dose reduction techniques were used; automated exposure control, adjustment of the mA and/or KV according to patient size, use of iterative reconstruction technique. Utilizing CT fluoroscopic guidance 5 Kenyan catheter placed in the pelvic abscess 0.3 x 1 Introduced through the catheter followed by dilators and a 10 Kenyan pigtail abscess drainage catheter in proper position Patient appears in stable condition during this procedure. At completion of the procedure, the patient is in satisfactory condition. Estimated blood loss 2 cc Complete culture and sensitivity report to follow. Impression: Successful CT-guided percutaneous placement pelvic abscess drainage catheter
[2025-01-11] MEDS: LEVOFLOXACIN/D5W 750MG IVPB 750 MG/150 ML BAG 100 MG IV (08:07)
--- NOTE | 2025-01-11 10:10 | PC.NURSE ---
Patient to surgery via gurney in stable condition.
[2025-01-11] MEDS: fentaNYL CIT INJ 50 mCg/ML AMP 2ML 75 MCG IVP (11:54)
--- NOTE | 2025-01-11 11:57 | ESPR_ITS ---
<Statement entered by Debra Hudson MD - 01/11/25 17:37> I have reviewed the note and agree with the resident's assessment & plan with exceptions as below. I have personally reviewed labs, imaging, home meds/prior records, examined the patient, formulated and discussed management plan with the IM team. Patient examined at bedside today. Patient to get CT drain placement by IR for peridiverticular abscess. Will continue with antibiotics including Levaquin IV and Flagyl IV. Will also add breathing treatments as needed for wheezing or shortness of breath as patient does have some left-sided pneumonia. Will continue with analgesia and follow-up with cultures. Repeat hematology and chemistry in the a.m. Debra Hudson, PGY-2 Internal Medicine Documentation for date of: 01/11/25 Subjective Subjective Interval history: Patient seen at bedside. No acute overnight event. Patient had no overnight abdominal pain, nausea, vomiting, shortness of breath, headaches, chest pain. Exam Vital Signs Temp Pulse Resp BP Pulse Ox O2 Del Method 97.7 F 85 18 110/61 95 Room Air 01/11/25 10:17 01/11/25 10:17 01/11/25 10:17 01/11/25 10:17 01/11/25 10:17 01/11/25 10:17 Narrative Exam General: Alert, laying in bed on a 30 degree incline, no acute distress, obese Skin: Warm, dry, intact, no obvious rash. Head: Normocephalic, atraumatic. Cardiovascular: S1+S2. Regular rate and rhythm, no murmurs appreciated on auscultation. Respiratory: Lungs are clear to auscultation, respirations unlabored, no crackles, no wheezing. Gastrointestinal: Soft, mild tenderness to right lower quadrant. No guarding or rebound tenderness. No organomegaly. Bowel sounds present. Extremities: No edema, no cyanosis, no clubbing. 2+ radial pulse bilaterally, 2+ posterior tibial pulse bilaterally. Neuro: No focal deficits observed. Conversant, moving all extremities. No overt cerebellar signs/incoordination. Psychiatric: Cooperative, appropriate affect Objective Labs 01/11/25 04:23 01/11/25 04:23 Labs: Laboratory Results - last 24 hr 01/10/25 01/11/25 15:13 04:23 WBC 9.8 RBC 3.84 L Hgb 11.5 L Hct 35.7 L MCV 93 MCH 29.9 MCHC 32.2 RDW Std Deviation 52.3 H Plt Count 317 Neut % (Auto) 74 Lymph % (Auto) 13 [place] % (Auto) 10 Eos % (Auto) 2 Baso % (Auto) 1 Neut # (Auto) 7.2 Lymph # (Auto) 1.3 [place] # (Auto) 1.0 H Eos # (Auto) 0.2 Baso # (Auto) 0.1 Immature Gran # (Auto) 0.04 H Absolute Nucleated RBC 0.00 Immature Gran % 0 Nucleated RBC % 0 PT 11.4 12.1 INR 1.0 1.1 APTT 24.4 29.8 Sodium 139 Potassium 4.1 Chloride 103 Carbon Dioxide 27.0 Anion Gap 9 BUN 10 Creatinine 0.9 Estim Creat Clear Calc 70.1 eGFR > 60 BUN/Creatinine Ratio 11 L Glucose 85 Calculated Osmolality 275 Calcium 8.5 Corrected Calcium 9.1 Phosphorus 3.5 Magnesium 1.7 Total Bilirubin 0.5 AST 13 ALT < 7 L Alkaline Phosphatase 58 Total Protein 6.4 Albumin 3.3 L D Globulin 3.1 Albumin/Globulin Ratio 1.1 L TSH 2.64 Quality Measures Quality Measures none Advance care planning discussed with:: patient Assessment & Plan Assessment Current Active Medications: Generic Name Dose Route Start Last Admin Trade Name Freq PRN Reason Stop Dose Admin Acetaminophen 650 mg 01/10/25 16:26 Acetaminophen 325 Mg Tablet PO 02/09/25 16:25 Q6HR PRN Fever >100.4 or pain 1-3 Atorvastatin Calcium 10 mg 01/10/25 21:00 01/10/25 20:32 Atorvastatin Calcium 10 Mg Tablet PO 02/09/25 20:59 10 mg HS MIN Administration Benzonatate 200 mg 01/10/25 16:21 01/10/25 17:17 Benzonatate 100 Mg Capsule PO 02/09/25 16:20 200 mg Q8HR PRN Administration cough Protocol Enoxaparin Sodium 40 mg 01/10/25 18:30 01/11/25 08:07 Enoxaparin Sod Inj 40 Mg/0.4 Ml Syringe SC 01/24/25 18:29 Not Given QDAY MIN Levofloxacin/Dextrose 750 mg in 150 mls @ 100 mls/hr 01/10/25 16:30 01/11/25 08:07 Levaquin Ivpb IV 01/17/25 16:29 100 mls/hr QDAY MIN Administration Metronidazole 500 mg in 100 mls @ 200 mls/hr 01/10/25 16:21 01/11/25 05:22 Flagyl 500 Mg Iv IV 01/17/25 16:20 200 mls/hr Q8HR MIN Administration Morphine Sulfate 2 mg 01/10/25 16:35 Morphine Sulf Inj 10 Mg/Ml Vial IVP 01/15/25 16:34 Q4H PRN abdominal pain Polyethylene Glycol 17 gm 01/11/25 09:00 01/11/25 08:08 Polyethylene Glycol 17 Gm Packet PO 02/10/25 08:59 Not Given QDAY MIN Plan Assessment: 74-year-old male with a past medical history of diverticulitis, gastritis, and esophagitis, presenting with five days of right lower quadrant abdominal pain. Patient admitted for for the management of diverticulitis with peridiverticular abscess. #Diverticulitis #Peridiverticular abscess CT abdomen/pelvis 01/10/25 showed left base pneumonia, acute sigmoid diverticulitis, peridiverticular abscess measuring 4.8 x 5.7 cm, no mention of perforation Plan ? Interventional radiology placed pelvic drainage catheter, complete culture and sensitivity report to follow ? CLD now, followed by Full Liquid Diet from dinner ? Metronidazole 500 mg IV every 8 hours for anaerobic coverage ? Multimodal analgesia including Tylenol and breakthrough morphine #Community-acquired pneumonia Patient had 2 days fever, new onset cough x 5 days, no sputum production CT Abdo/pelvis showed left base pneumonia Plan ? Levofloxacin 750 mg IV daily for CAP coverage. ? Tessalon Perles as needed #Hyperlipidemia Chronic Plan: ? Resumed home Lipitor 10 mg at bedtime ? Follow-up with lipid panel Health Maintenance: Diet: clear liquid diet now. Full liquid from dinner. GI prophylaxis: none at present DVT prophylaxis: ENOXAPARIN Antibiotics: Levoflox + Flagyl CODE STATUS: FULL Disposition: MedSurg Case discussed with my attending Dr. Bedoya, and senior resident, Dr. Tristan Fuentes MD PGY-1 Attending Provider Attestation/Addendum I have discussed and was present for the essential components of the history, physical examination, diagnosis, and treatment plan with the resident. I agree with the patient's care as documented by the resident and amended herein by me. Gil Bedoya DO. Although this document has been carefully reviewed, there may still be some phonetic and other typographical errors. These errors are purely grammatical due to imperfections in the software program and should not be construed in any way to compromise the substance of the patient's medical care during this visit. Patient seen and evaluated this AM. Vital signs stable, patient afebrile, no other acute events overnight. Labs largely unremarkable, hemoglobin slightly low, albumin slightly low. IR drain placed today for peridiverticular abscess with a small amount of hemopurulent drainage at time of visit today. Patient is not in any pain. Will continue clear liquid diet for now however may go to full liquid tonight. Will also continue broad-spectrum antibiotics will cover pneumonia and diverticulitis with peridiverticular abscess. This consists of levofloxacin and Flagyl. Will continue to monitor closely, will likely DC the patient in 1 to 2 days if the drain continues to function, patient can follow-up with general surgery to have drain removed at a later time. If the drain stops functioning or the patient worsens, may have to consult surgery for I&D of the abscess. Will continue to monitor closely Kris.
[2025-01-11] MEDS: LIDOCAINE INJ PF 1% 30 ML VIAL 6 ML INFL (12:06)
--- NOTE | 2025-01-11 12:40 | PC.NURSE ---
Patient back to room in stable condition, drain noted to left abd, accordian drain.
--- NOTE | 2025-01-11 13:01 | PC.NURSE ---
patient transfered back to room. hand off report given to cesar rn. patient alert and oriented. gcs of 15. cesar and I assessed dressing as well as site. dressing is clean, dry, and intact.
--- NOTE | 2025-01-11 13:45 | PC.PT ---
PT spoke with RN Syd about patient. Per RN, patient has been getting up to the bathroom multiple times xI and with no difficulty. Will cancel PT eval at this time as patient is xI.
--- NOTE | 2025-01-11 15:24 | PC.SS ---
Rounding note: patient to have IR drained. 1-2 days before d/c.
[2025-01-11] MEDS: ATORVASTATIN CALCIUM 10 MG TABLET PO (21:52)
[2025-01-12] VITALS (10 sets, daily range): BP systolic 134–148; BP diastolic 68–78; PULSE 75–98; RESP 14–18; TEMP 36.2–36.6; O2SAT 93–100
[2025-01-12] MEDS: metroNIDAZOLE/NS 500 MG IVPB 500 MG/100 ML BAG 200 MG IV ×3 (05:25→21:04)
[2025-01-12 06:34] LABS: Basophils # (Auto) 0.1 Thou/mm3 (0.0-0.2); Basophils % (Auto) 1 % (0-2.5); Eosinophils # (Auto) 0.1 Thou/mm3 (0.0-0.5); Eosinophils % (Auto) 1 % (0-10); Hematocrit 38.2 % (41.0-53.0); Hemoglobin 12.0 g/dL (13.5-16.0); Immature Granulocytes Auto 0.07 Thou/mm3 (0.00-0.00); Lymphocytes # (Auto) 1.3 Thou/mm3 (1.0-4.8); Lymphocytes % (Auto) 13 % (10-50); Mean Corpuscular HGB Conc 31.4 g/dl (31.0-37.0); Mean Corpuscular Hemoglobin 29.3 pg (25.0-35.0); Mean Corpuscular Volume 93 fL (80-100); Monocytes # (Auto) 0.7 Thou/mm3 (0.0-0.8); Monocytes % (Auto) 7 % (0-12); Neutrophils # (Auto) 7.7 Thou/mm3 (1.8-7.7); Neutrophils % (Auto) 77 % (37-80); Nucleated Red Blood Cell # 0.00 Thou/mm3 (0.00-0.00); Nucleated Red Blood Cell % 0 /100 WBC (0); Platelet Count 318 Thou/mm3 (140-440); RDW Standard Deviation 52.1 fL (35.1-43.9); Red Blood Count 4.09 Miln/mm3 (4.50-5.90); White Blood Count 10.0 Thou/mm3 (3.8-10.6)
[2025-01-12 07:34] LABS: Alanine Aminotransferase < 7 U/L (10-49); Albumin, Serum 3.4 gm/dL (3.4-4.8); Albumin/Globulin Ratio 1.1 (1.2-2.2); Alkaline Phosphatase 56 U/L (46-116); Anion Gap 10 (7-16); Aspartate Amino Transferase 12 U/L (0-34); BUN/Creatinine Ratio 13 Ratio (12-20); Bilirubin,Total 0.5 mg/dL (0.3-1.2); Blood Urea Nitrogen 12 mg/dL (9-23); Calcium 8.9 mg/dL (8.3-10.6); Calcium (Corrected) 9.4 mg/dL (8.5-10.1); Carbon Dioxide 27.1 mMol/L (20.0-31.0); Chloride 103 mMol/L (98-107); Creatinine (Component) 0.9 mg/dL (0.6-1.3); Estimated Creatinine Clearance 70.1 mL/min (>60); Globulin 3.1 gm/dL (2.3-3.5); Glucose 82 mg/dL (74-106); Magnesium 1.7 mg/dL (1.6-2.6); Osmolality,Calculated 278 (275-295); Phosphorous 3.4 mg/dL (2.4-5.1); Potassium 4.3 mMol/L (3.4-5.1); Sodium 140 mMol/L (136-145); Total Protein 6.5 gm/dL (5.7-8.2); eGFR > 60 See Note
--- NOTE | 2025-01-12 08:06 | PC.SS ---
Initial assessment: Patient is a 74-year old male admitted for Diverticular Abscess. Patient was alert and oriented. Patient able to confirm demographic information. Patient resides at home with his son, Dae and currently also his step son, Joesph. Patient reports being independent with ADL's. Patient denies use of any DME in the home. Patient's PCP is Dr. Allen Basurto. Patient informs he will return home upon discharge and has reliable transportation from family. No needs identified at this time. D/c plan: Home Next of kin: SonDae
[2025-01-12] MEDS: LEVOFLOXACIN/D5W 750MG IVPB 750 MG/150 ML BAG 100 MG IV (08:31)
[2025-01-12] MEDS: ENOXAPARIN SOD INJ 40 MG/0.4 ML SYRINGE SC (08:33)
--- NOTE | 2025-01-12 08:39 | PC.NURSE ---
Dr Elam into see pt, will await any new orders.
[2025-01-12] MEDS: ALBUTEROL/IPRATROPIUM (Duoneb) RT SOL 3 ML NEBU INH (08:53)
--- NOTE | 2025-01-12 10:51 | PD.RESPRO ---
Documentation for date of: 01/12/25 Subjective Subjective Interval history: Pt examined at bedside today. No acute overnight events. Pt reports that he is doing well, expresses minimal abdominal pain, has not vomitted. He also had a bowel movement. He is wondering when he is going to go home. No other complaints at this time. Exam Vital Signs Temp Pulse Resp BP Pulse Ox O2 Del Method O2 Flow Rate 97.2 F 81 14 148/74 H 100 Room Air 3 01/12/25 08:00 01/12/25 08:57 01/12/25 08:57 01/12/25 08:00 01/12/25 08:57 01/12/25 08:00 01/11/25 12:05 Narrative Exam General: Alert, laying in bed on a 30 degree incline, no acute distress, obese Skin: Warm, dry, intact, no obvious rash. Head: Normocephalic, atraumatic. Cardiovascular: S1+S2. Regular rate and rhythm, no murmurs appreciated on auscultation. Respiratory: Lungs are clear to auscultation, respirations unlabored, no crackles, no wheezing. Gastrointestinal: Soft, mild tenderness to right lower quadrant. No guarding or rebound tenderness. No organomegaly. Bowel sounds present. Abdominal drain present, draining seroanginous fluid Extremities: No edema, no cyanosis, no clubbing. 2+ radial pulse bilaterally, 2+ posterior tibial pulse bilaterally. Neuro: No focal deficits observed. Conversant, moving all extremities. No overt cerebellar signs/incoordination. Psychiatric: Cooperative, appropriate affect Objective Labs 01/12/25 05:13 01/12/25 05:13 Labs: Laboratory Results - last 24 hr 01/12/25 05:13 WBC 10.0 RBC 4.09 L Hgb 12.0 L Hct 38.2 L MCV 93 MCH 29.3 MCHC 31.4 RDW Std Deviation 52.1 H Plt Count 318 Neut % (Auto) 77 Lymph % (Auto) 13 [place] % (Auto) 7 Eos % (Auto) 1 Baso % (Auto) 1 Neut # (Auto) 7.7 Lymph # (Auto) 1.3 [place] # (Auto) 0.7 Eos # (Auto) 0.1 Baso # (Auto) 0.1 Immature Gran # (Auto) 0.07 H Absolute Nucleated RBC 0.00 Immature Gran % 1 H Nucleated RBC % 0 Sodium 140 Potassium 4.3 Chloride 103 Carbon Dioxide 27.1 Anion Gap 10 BUN 12 Creatinine 0.9 Estim Creat Clear Calc 70.1 eGFR > 60 BUN/Creatinine Ratio 13 Glucose 82 Calculated Osmolality 278 Calcium 8.9 Corrected Calcium 9.4 Phosphorus 3.4 Magnesium 1.7 Total Bilirubin 0.5 AST 12 ALT < 7 L Alkaline Phosphatase 56 Total Protein 6.5 Albumin 3.4 Globulin 3.1 Albumin/Globulin Ratio 1.1 L Quality Measures Quality Measures none Advance care planning discussed with:: patient Assessment & Plan Assessment Current Active Medications: Generic Name Dose Route Start Last Admin Trade Name Freq PRN Reason Stop Dose Admin Acetaminophen 650 mg 01/10/25 16:26 Acetaminophen 325 Mg Tablet PO 02/09/25 16:25 Q6HR PRN Fever >100.4 or pain 1-3 Albuterol/Ipratropium 3 ml 01/11/25 17:36 01/12/25 08:53 Albuterol/Ipratropium (Duoneb) Rt Dyana 3 Ml Nebu INH 02/10/25 18:59 3 ml Q6HRRT PRN Administration wheezing or SOB Atorvastatin Calcium 10 mg 01/10/25 21:00 01/11/25 21:52 Atorvastatin Calcium 10 Mg Tablet PO 02/09/25 20:59 10 mg HS MIN Administration Benzonatate 200 mg 01/10/25 16:21 01/10/25 17:17 Benzonatate 100 Mg Capsule PO 02/09/25 16:20 200 mg Q8HR PRN Administration cough Protocol Enoxaparin Sodium 40 mg 01/10/25 18:30 01/12/25 08:33 Enoxaparin Sod Inj 40 Mg/0.4 Ml Syringe SC 01/24/25 18:29 40 mg QDAY MIN Administration Levofloxacin/Dextrose 750 mg in 150 mls @ 100 mls/hr 01/10/25 16:30 01/12/25 08:31 Levaquin Ivpb IV 01/17/25 16:29 100 mls/hr QDAY MIN Administration Metronidazole 500 mg in 100 mls @ 200 mls/hr 01/10/25 16:21 01/12/25 05:25 Flagyl 500 Mg Iv IV 01/17/25 16:20 200 mls/hr Q8HR MIN Administration Morphine Sulfate 2 mg 01/10/25 16:35 Morphine Sulf Inj 10 Mg/Ml Vial IVP 01/15/25 16:34 Q4H PRN abdominal pain Protocol Polyethylene Glycol 17 gm 01/11/25 09:00 01/12/25 08:32 Polyethylene Glycol 17 Gm Packet PO 02/10/25 08:59 Not Given QDAY MIN Plan Assessment: 74-year-old male with a past medical history of diverticulitis, gastritis, and esophagitis who is admitted for diverticulitis with peridiverticular abscess. #Diverticulitis, improving #Peridiverticular abscess, s/p drain, improving CT abdomen/pelvis 01/10/25 showed left base pneumonia, acute sigmoid diverticulitis, peridiverticular abscess measuring 4.8 x 5.7 cm, no mention of perforation 60 cc draining from bag Spoke with General Surgery, who wants imaging once bag is only draining less than 20 cc in 24 hour period Plan: ? General surgery on consult, appreciate recs ? PUD for dinner ? Metronidazole 500 mg IV every 8 hours and Levaquin 750 mg IV qday (01/10- ? Multimodal analgesia including Tylenol and breakthrough morphine ? Will order repeat imaging when there is less than 20 cc/24 hours for drain #Community-acquired pneumonia Patient had 2 days fever, new onset cough x 5 days, no sputum production CT Abdo/pelvis showed left base pneumonia Plan: ? Levofloxacin 750 mg IV daily for CAP coverage. ? Tessalon Perles as needed #Hyperlipidemia Chronic Plan: ? Continue home Lipitor 10 mg at bedtime #Health Maintenance Disposition: MedSurg DVT prophylaxis: Lovenox GI prophylaxis: Protonix Diet: PUD CODE STATUS: Full Patient seen and care discussed with my attending physician, Dr. Aureliano Hudson, PGY-2 Attending Provider Attestation/Addendum I have discussed and was present for the essential components of the history, physical examination, diagnosis, and treatment plan with the resident. I agree with the patient's care as documented by the resident and amended herein by me. Gil Bedoya DO. Although this document has been carefully reviewed, there may still be some phonetic and other typographical errors. These errors are purely grammatical due to imperfections in the software program and should not be construed in any way to compromise the substance of the patient's medical care during this visit. Patient seen and evaluated this AM. No acute events overnight, the patient's KELLY drain had 67 mL of hemopurulent discharge overnight. General surgery consulted, will repeat CT scan when drain output is less than 20 mL in a 24-hour. Will continue broad-spectrum antibiotics consisting of levofloxacin and Flagyl. Patient states his cough is better, pneumonia likely improving. Will continue to monitor closely while he is here.
--- NOTE | 2025-01-12 14:02 | PC.NURSE ---
Pt. OOB ambulating in hallway with [employer] OWNER OPERATOR, good steady gait noted, no shuffling of feet or stumbling, tolerated walking around the whole floor well.
--- NOTE | 2025-01-12 14:52 | PC.NURSE ---
Dr Aden here to see pt., will await any knew orders,
--- NOTE | 2025-01-12 15:14 | PD.SURCONS ---
HPI Consult details History of present illness: 74M treated in 2022 for diverticular abscess admitted on 01/10 with mild RLQ pain and subjective fevers. Patient felt overall his symptoms were not as severe as when he was manage before however on workup he was found to have a peridiverticular abscess up to 5.7cm in which a drain was placed yesterday. So far he has had around 75 cc output today, he reports feeling very well with no current pain, no nausea, he is tolerating diet and having regular bowel movements. He also denies pneumaturia or fecaluria Patient states he had a similar episode of pain a month ago which was treated with outpatient antibiotics. He underwent colonoscopy in 2023 with findings of erythematous mucosa (biopsy negative) and diverticulosis PMH: Prostate CA, HLD PSHx: Prostatectomy, hernia repair Meds: No antiplt or anticoagulation Allergies: NKDA Review of Systems Review of Systems ROS Unobtainable: All systems reviewed & no additional complaints except as documented Meds Home Medications and Allergies Home Medications ?Medication ?Instructions ?Recorded ?Confirmed ?Type atorvastatin 10 mg tablet 10 mg PO QDAY 02/28/24 01/10/25 History Allergies Allergy/AdvReac Type Severity Reaction Status Date / Time No Known Allergies Allergy Verified 01/10/25 06:28 Exam Vital Signs Temp Pulse Resp BP Pulse Ox O2 Del Method O2 Flow Rate 97.1 F 93 16 134/70 H 93 L Room Air 3 01/12/25 12:00 01/12/25 12:01/12/25 12:01/12/25 12:01/12/25 12:00 01/12/25 12:00 01/11/25 12:05 Constitutional Constitutional: no acute distress Routine Respiratory Exam Respiratory: Present no resp distress Routine Abdominal Exam Abdominal: Present soft and drain (Left lower quadrant percutaneous drain with seropurulent output); Absent tenderness or distended Results Results: Laboratory Laboratory results: results reviewed Results: Imaging CT scan - abdomen: report reviewed and image reviewed Assessment & Plan Plan 74M treated in the past for complicated diverticulitis admitted 01/10 with diverticular lower abscess status post drain placement 01/11. Clinically patient is doing very well with no pain and is hemodynamically normal, not requiring urgent surgical intervention. We did discuss the possibility of elective sigmoidectomy due to his recurrent episodes and patient would like to consider more as well as confer with his other providers. Repeat CTAP when drain output less than 20 cc in 24 hours Continue ABX Will follow-up
--- NOTE | 2025-01-12 16:50 | CHAP ---
Patient was visited by he Spiritual Care Volunteer who also prayed for them. (Volunteer was in the hospital from 14:30-16:50)
[2025-01-12] MEDS: BENZONATATE 100 MG CAPSULE 200 MG PO (19:41)
[2025-01-12] MEDS: ATORVASTATIN CALCIUM 10 MG TABLET PO (21:04)
[2025-01-13] VITALS (10 sets, daily range): BP systolic 110–148; BP diastolic 66–75; PULSE 76–98; RESP 18–20; TEMP 36.4; O2SAT 93–98; BMI 40.0
[2025-01-13 05:32] LABS: Basophils # (Auto) 0.1 Thou/mm3 (0.0-0.2); Basophils % (Auto) 1 % (0-2.5); Eosinophils # (Auto) 0.2 Thou/mm3 (0.0-0.5); Eosinophils % (Auto) 2 % (0-10); Hematocrit 37.7 % (41.0-53.0); Hemoglobin 11.8 g/dL (13.5-16.0); Immature Granulocytes Auto 0.06 Thou/mm3 (0.00-0.00); Lymphocytes # (Auto) 1.6 Thou/mm3 (1.0-4.8); Lymphocytes % (Auto) 15 % (10-50); Mean Corpuscular HGB Conc 31.3 g/dl (31.0-37.0); Mean Corpuscular Hemoglobin 29.3 pg (25.0-35.0); Mean Corpuscular Volume 94 fL (80-100); Monocytes # (Auto) 0.8 Thou/mm3 (0.0-0.8); Monocytes % (Auto) 8 % (0-12); Neutrophils # (Auto) 7.8 Thou/mm3 (1.8-7.7); Neutrophils % (Auto) 75 % (37-80); Nucleated Red Blood Cell # 0.00 Thou/mm3 (0.00-0.00); Nucleated Red Blood Cell % 0 /100 WBC (0); Platelet Count 334 Thou/mm3 (140-440); RDW Standard Deviation 51.8 fL (35.1-43.9); Red Blood Count 4.03 Miln/mm3 (4.50-5.90); White Blood Count 10.4 Thou/mm3 (3.8-10.6)
[2025-01-13] MEDS: metroNIDAZOLE/NS 500 MG IVPB 500 MG/100 ML BAG 200 MG IV ×3 (05:40→21:22)
[2025-01-13 06:29] LABS: Alanine Aminotransferase < 7 U/L (10-49); Albumin, Serum 3.4 gm/dL (3.4-4.8); Albumin/Globulin Ratio 1.1 (1.2-2.2); Alkaline Phosphatase 54 U/L (46-116); Anion Gap 10 (7-16); Aspartate Amino Transferase 12 U/L (0-34); BUN/Creatinine Ratio 11 Ratio (12-20); Bilirubin,Total 0.4 mg/dL (0.3-1.2); Blood Urea Nitrogen 12 mg/dL (9-23); Calcium 8.6 mg/dL (8.3-10.6); Calcium (Corrected) 9.1 mg/dL (8.5-10.1); Carbon Dioxide 25.7 mMol/L (20.0-31.0); Chloride 104 mMol/L (98-107); Creatinine (Component) 1.1 mg/dL (0.6-1.3); Estimated Creatinine Clearance 57.3 mL/min (>60); Globulin 3.0 gm/dL (2.3-3.5); Glucose 93 mg/dL (74-106); Magnesium 2.0 mg/dL (1.6-2.6); Osmolality,Calculated 279 (275-295); Phosphorous 3.3 mg/dL (2.4-5.1); Potassium 4.0 mMol/L (3.4-5.1); Sodium 140 mMol/L (136-145); Total Protein 6.4 gm/dL (5.7-8.2); eGFR > 60 See Note
[2025-01-13] MEDS: POLYETHYLENE GLYCOL 17 GM PACKET PO (09:00)
[2025-01-13] MEDS: ENOXAPARIN SOD INJ 40 MG/0.4 ML SYRINGE SC (09:01)
[2025-01-13] MEDS: LEVOFLOXACIN/D5W 750MG IVPB 750 MG/150 ML BAG 100 MG IV (09:02)
--- NOTE | 2025-01-13 10:07 | ESPR_ITS ---
Documentation for date of: 01/13/25 Subjective Subjective Interval history: Patient seen at bedside today. No acute overnight events. Patient reports that he is doing well, expresses minimal abdominal pain, has not vomitted. He also had a bowel movement. He is wondering when he is going to go home. No other complaints at this time. Exam Vital Signs Temp Pulse Resp BP Pulse Ox O2 Del Method O2 Flow Rate 97.5 F 78 18 132/72 H 95 Room Air 3 01/13/25 07:50 01/13/25 09:44 01/13/25 09:44 01/13/25 07:50 01/13/25 09:44 01/13/25 07:50 01/11/25 12:05 Narrative Exam General: Alert, laying in bed on a 30 degree incline, no acute distress, obese Skin: Warm, dry, intact, no obvious rash. Head: Normocephalic, atraumatic. Cardiovascular: S1+S2. Regular rate and rhythm, no murmurs appreciated on auscultation. Respiratory: Lungs are clear to auscultation, respirations unlabored, no crackles, no wheezing. Gastrointestinal: Soft, no tenderness to palpation. No guarding or rebound tenderness. No organomegaly. Bowel sounds present. Abdominal drain present, draining seroanginous fluid Extremities: No edema, no cyanosis, no clubbing. 2+ radial pulse bilaterally, 2+ posterior tibial pulse bilaterally. Neuro: No focal deficits observed. Conversant, moving all extremities. No overt cerebellar signs/incoordination. Psychiatric: Cooperative, appropriate affect Objective Labs 01/13/25 04:56 01/13/25 04:56 Labs: Laboratory Results - last 24 hr 01/13/25 04:56 WBC 10.4 RBC 4.03 L Hgb 11.8 L Hct 37.7 L MCV 94 MCH 29.3 MCHC 31.3 RDW Std Deviation 51.8 H Plt Count 334 Neut % (Auto) 75 Lymph % (Auto) 15 [place] % (Auto) 8 Eos % (Auto) 2 Baso % (Auto) 1 Neut # (Auto) 7.8 H Lymph # (Auto) 1.6 [place] # (Auto) 0.8 Eos # (Auto) 0.2 Baso # (Auto) 0.1 Immature Gran # (Auto) 0.06 H Absolute Nucleated RBC 0.00 Immature Gran % 1 H Nucleated RBC % 0 Sodium 140 Potassium 4.0 Chloride 104 Carbon Dioxide 25.7 Anion Gap 10 BUN 12 Creatinine 1.1 Estim Creat Clear Calc 57.3 L eGFR > 60 BUN/Creatinine Ratio 11 L Glucose 93 Calculated Osmolality 279 Calcium 8.6 Corrected Calcium 9.1 Phosphorus 3.3 Magnesium 2.0 Total Bilirubin 0.4 AST 12 ALT < 7 L Alkaline Phosphatase 54 Total Protein 6.4 Albumin 3.4 Globulin 3.0 Albumin/Globulin Ratio 1.1 L Quality Measures Quality Measures none Advance care planning discussed with:: patient Assessment & Plan Assessment Current Active Medications: Generic Name Dose Route Start Last Admin Trade Name Freq PRN Reason Stop Dose Admin Acetaminophen 650 mg 01/10/25 16:26 Acetaminophen 325 Mg Tablet PO 02/09/25 16:25 Q6HR PRN Fever >100.4 or pain 1-3 Albuterol/Ipratropium 3 ml 01/11/25 17:36 01/12/25 08:53 Albuterol/Ipratropium (Duoneb) Rt Dyana 3 Ml Nebu INH 02/10/25 18:59 3 ml Q6HRRT PRN Administration wheezing or SOB Atorvastatin Calcium 10 mg 01/10/25 21:00 01/12/25 21:04 Atorvastatin Calcium 10 Mg Tablet PO 02/09/25 20:59 10 mg HS MIN Administration Benzonatate 200 mg 01/10/25 16:21 01/12/25 19:41 Benzonatate 100 Mg Capsule PO 02/09/25 16:20 200 mg Q8HR PRN Administration cough Protocol Enoxaparin Sodium 40 mg 01/10/25 18:30 01/13/25 09:01 Enoxaparin Sod Inj 40 Mg/0.4 Ml Syringe SC 01/24/25 18:29 40 mg QDAY MIN Administration Levofloxacin/Dextrose 750 mg in 150 mls @ 100 mls/hr 01/10/25 16:30 01/13/25 09:02 Levaquin Ivpb IV 01/17/25 16:29 100 mls/hr QDAY MIN Administration Metronidazole 500 mg in 100 mls @ 200 mls/hr 01/10/25 16:21 01/13/25 05:40 Flagyl 500 Mg Iv IV 01/17/25 16:20 200 mls/hr Q8HR MIN Administration Morphine Sulfate 2 mg 01/10/25 16:35 Morphine Sulf Inj 10 Mg/Ml Vial IVP 01/15/25 16:34 Q4H PRN abdominal pain Protocol Pantoprazole Sodium 40 mg 01/13/25 09:00 01/13/25 09:00 Pantoprazole Inj 40 Mg Vial IVP 02/12/25 08:59 40 mg QDAY MIN Administration Polyethylene Glycol 17 gm 01/11/25 09:00 01/13/25 09:00 Polyethylene Glycol 17 Gm Packet PO 02/10/25 08:59 17 gm QDAY MIN Administration Plan Assessment: 74-year-old male with a past medical history of diverticulitis, gastritis, and esophagitis who is admitted for diverticulitis with peridiverticular abscess. #Diverticulitis, improving #Peridiverticular abscess, s/p drain, improving CT abdomen/pelvis 01/10/25 showed left base pneumonia, acute sigmoid diverticulitis, peridiverticular abscess measuring 4.8 x 5.7 cm, no mention of perforation 60 cc draining from bag Spoke with General Surgery, who wants imaging once bag is only draining less than 20 cc in 24 hour period, Plan: ? General surgery on consult, Dr. Bennett, appreciate recs ? PUD diet ? Metronidazole 500 mg IV every 8 hours and Levaquin 750 mg IV qday (01/10- ? Multimodal analgesia including Tylenol and breakthrough morphine ? Will order repeat imaging when there is less than 20 cc/24 hours for drain, currently draining 45 cc/24 hours #Community-acquired pneumonia Patient had 2 days fever, new onset cough x 5 days, no sputum production CT Abdo/pelvis showed left base pneumonia Plan: ? Levofloxacin 750 mg IV daily for CAP coverage. ? Tessalon Perles as needed #Hyperlipidemia Chronic Plan: ? Continue home Lipitor 10 mg at bedtime #Health Maintenance Disposition: MedSurg DVT prophylaxis: Lovenox GI prophylaxis: Protonix Diet: PUD CODE STATUS: Full Case discussed with my attending Dr. Aureliano Fuentes MD PGY-1 Attending Provider Attestation/Addendum I have discussed and was present for the essential components of the history, physical examination, diagnosis, and treatment plan with the resident. I agree with the patient's care as documented by the resident and amended herein by me. Gil Bedoya DO. Although this document has been carefully reviewed, there may still be some phonetic and other typographical errors. These errors are purely grammatical due to imperfections in the software program and should not be construed in any way to compromise the substance of the patient's medical care during this visit. Patient seen and evaluated this AM. Patient doing well, overall, no acute events overnight, vital signs stable, patient afebrile. Fluid culture still pending, 25 mL out overnight. Will repeat CT scan per surgery recommendations once 24-hour output is less than 20 mL. Will continue broad-spectrum antibiotics of levofloxacin and Flagyl for now and continue to monitor closely.
[2025-01-13] MEDS: BENZONATATE 100 MG CAPSULE 200 MG PO (15:15)
[2025-01-13] MEDS: ATORVASTATIN CALCIUM 10 MG TABLET PO (21:22)
[2025-01-14] VITALS (10 sets, daily range): BP systolic 124–144; BP diastolic 67–83; PULSE 71–100; RESP 16–23; TEMP 36.2–36.6; O2SAT 94–97
[2025-01-14] MEDS: metroNIDAZOLE/NS 500 MG IVPB 500 MG/100 ML BAG 200 MG IV ×3 (05:29→21:02)
[2025-01-14 06:11] LABS: Basophils # (Auto) 0.1 Thou/mm3 (0.0-0.2); Basophils % (Auto) 1 % (0-2.5); Eosinophils # (Auto) 0.3 Thou/mm3 (0.0-0.5); Eosinophils % (Auto) 4 % (0-10); Hematocrit 37.8 % (41.0-53.0); Hemoglobin 11.8 g/dL (13.5-16.0); Immature Granulocytes Auto 0.03 Thou/mm3 (0.00-0.00); Lymphocytes # (Auto) 1.8 Thou/mm3 (1.0-4.8); Lymphocytes % (Auto) 23 % (10-50); Mean Corpuscular HGB Conc 31.2 g/dl (31.0-37.0); Mean Corpuscular Hemoglobin 29.3 pg (25.0-35.0); Mean Corpuscular Volume 94 fL (80-100); Monocytes # (Auto) 0.6 Thou/mm3 (0.0-0.8); Monocytes % (Auto) 7 % (0-12); Neutrophils # (Auto) 5.1 Thou/mm3 (1.8-7.7); Neutrophils % (Auto) 65 % (37-80); Nucleated Red Blood Cell # 0.00 Thou/mm3 (0.00-0.00); Nucleated Red Blood Cell % 0 /100 WBC (0); Platelet Count 373 Thou/mm3 (140-440); RDW Standard Deviation 51.7 fL (35.1-43.9); Red Blood Count 4.03 Miln/mm3 (4.50-5.90); White Blood Count 7.8 Thou/mm3 (3.8-10.6)
[2025-01-14 06:58] LABS: Alanine Aminotransferase < 7 U/L (10-49); Albumin, Serum 3.1 gm/dL (3.4-4.8); Albumin/Globulin Ratio 1.2 (1.2-2.2); Alkaline Phosphatase 56 U/L (46-116); Anion Gap 10 (7-16); Aspartate Amino Transferase 16 U/L (0-34); BUN/Creatinine Ratio 17 Ratio (12-20); Bilirubin,Total 0.3 mg/dL (0.3-1.2); Blood Urea Nitrogen 15 mg/dL (9-23); Calcium 8.3 mg/dL (8.3-10.6); Calcium (Corrected) 9.0 mg/dL (8.5-10.1); Carbon Dioxide 26.2 mMol/L (20.0-31.0); Chloride 106 mMol/L (98-107); Creatinine (Component) 0.9 mg/dL (0.6-1.3); Estimated Creatinine Clearance 70.1 mL/min (>60); Globulin 2.6 gm/dL (2.3-3.5); Glucose 89 mg/dL (74-106); Magnesium 1.7 mg/dL (1.6-2.6); Osmolality,Calculated 282 (275-295); Phosphorous 3.4 mg/dL (2.4-5.1); Potassium 4.3 mMol/L (3.4-5.1); Sodium 142 mMol/L (136-145); Total Protein 5.7 gm/dL (5.7-8.2); eGFR > 60 See Note
--- NOTE | 2025-01-14 07:45 | PD.RESPRO ---
Documentation for date of: 01/14/25 Subjective Subjective Interval history: Patient seen at bedside today. No acute overnight events. Patient reports that he is doing well, expresses minimal abdominal pain, has not vomitted. He also had a bowel movement yesterday. No other complaints at this time. Exam Vital Signs Temp Pulse Resp BP Pulse Ox O2 Del Method O2 Flow Rate 97.1 F 83 18 124/67 94 L Room Air 3 01/14/25 07:40 01/14/25 07:40 01/14/25 07:40 01/14/25 07:40 01/14/25 07:40 01/14/25 07:40 01/11/25 12:05 Narrative Exam General: Alert, laying in bed on a 30 degree incline, no acute distress, obese Skin: Warm, dry, intact, no obvious rash. Head: Normocephalic, atraumatic. Cardiovascular: S1+S2. Regular rate and rhythm, no murmurs appreciated on auscultation. Respiratory: Lungs are clear to auscultation, respirations unlabored, no crackles, no wheezing. Gastrointestinal: Soft, no tenderness to palpation. No guarding or rebound tenderness. No organomegaly. Bowel sounds present. Abdominal drain present, draining seroanginous fluid Extremities: No edema, no cyanosis, no clubbing. 2+ radial pulse bilaterally, 2+ posterior tibial pulse bilaterally. Neuro: No focal deficits observed. Conversant, moving all extremities. No overt cerebellar signs/incoordination. Psychiatric: Cooperative, appropriate affect Objective Labs 01/14/25 04:53 01/14/25 04:53 Labs: Laboratory Results - last 24 hr 01/14/25 04:53 WBC 7.8 RBC 4.03 L Hgb 11.8 L Hct 37.8 L MCV 94 MCH 29.3 MCHC 31.2 RDW Std Deviation 51.7 H Plt Count 373 D Neut % (Auto) 65 Lymph % (Auto) 23 [place] % (Auto) 7 Eos % (Auto) 4 Baso % (Auto) 1 Neut # (Auto) 5.1 Lymph # (Auto) 1.8 [place] # (Auto) 0.6 Eos # (Auto) 0.3 Baso # (Auto) 0.1 Immature Gran # (Auto) 0.03 H Absolute Nucleated RBC 0.00 Immature Gran % 0 Nucleated RBC % 0 Sodium 142 Potassium 4.3 Chloride 106 Carbon Dioxide 26.2 Anion Gap 10 BUN 15 Creatinine 0.9 Estim Creat Clear Calc 70.1 eGFR > 60 BUN/Creatinine Ratio 17 Glucose 89 Calculated Osmolality 282 Calcium 8.3 Corrected Calcium 9.0 Phosphorus 3.4 Magnesium 1.7 Total Bilirubin 0.3 AST 16 ALT < 7 L Alkaline Phosphatase 56 Total Protein 5.7 Albumin 3.1 L Globulin 2.6 Albumin/Globulin Ratio 1.2 Quality Measures Quality Measures none Advance care planning discussed with:: patient Assessment & Plan Assessment Current Active Medications: Generic Name Dose Route Start Last Admin Trade Name Freq PRN Reason Stop Dose Admin Acetaminophen 650 mg 01/10/25 16:26 Acetaminophen 325 Mg Tablet PO 02/09/25 16:25 Q6HR PRN Fever >100.4 or pain 1-3 Albuterol/Ipratropium 3 ml 01/11/25 17:36 01/12/25 08:53 Albuterol/Ipratropium (Duoneb) Rt Dyana 3 Ml Nebu INH 02/10/25 18:59 3 ml Q6HRRT PRN Administration wheezing or SOB Atorvastatin Calcium 10 mg 01/10/25 21:00 01/13/25 21:22 Atorvastatin Calcium 10 Mg Tablet PO 02/09/25 20:59 10 mg HS MIN Administration Benzonatate 200 mg 01/10/25 16:21 01/13/25 15:15 Benzonatate 100 Mg Capsule PO 02/09/25 16:20 200 mg Q8HR PRN Administration cough Protocol Enoxaparin Sodium 40 mg 01/10/25 18:30 01/13/25 09:01 Enoxaparin Sod Inj 40 Mg/0.4 Ml Syringe SC 01/24/25 18:29 40 mg QDAY MIN Administration Levofloxacin/Dextrose 750 mg in 150 mls @ 100 mls/hr 01/10/25 16:30 01/13/25 09:02 Levaquin Ivpb IV 01/17/25 16:29 100 mls/hr QDAY MIN Administration Metronidazole 500 mg in 100 mls @ 200 mls/hr 01/10/25 16:21 01/14/25 05:29 Flagyl 500 Mg Iv IV 01/17/25 16:20 200 mls/hr Q8HR MIN Administration Morphine Sulfate 2 mg 01/10/25 16:35 Morphine Sulf Inj 10 Mg/Ml Vial IVP 01/15/25 16:34 Q4H PRN abdominal pain Protocol Pantoprazole Sodium 40 mg 01/14/25 09:00 Pantoprazole 40 Mg Tablet PO 02/12/25 08:59 QDAY MIN Polyethylene Glycol 17 gm 01/11/25 09:00 01/13/25 09:00 Polyethylene Glycol 17 Gm Packet PO 02/10/25 08:59 17 gm QDAY MIN Administration Plan Assessment: 74-year-old male with a past medical history of diverticulitis, gastritis, and esophagitis who is admitted for diverticulitis with peridiverticular abscess. #Diverticulitis, improving #Peridiverticular abscess, s/p drain, improving CT abdomen/pelvis 01/10/25 showed left base pneumonia, acute sigmoid diverticulitis, peridiverticular abscess measuring 4.8 x 5.7 cm, no mention of perforation Spoke with General Surgery, who wants imaging once bag is only draining less than 20 cc in 24 hour period Current drainge 58 cc/24hr Plan: ? General surgery on consult, Dr. Bennett, appreciate recs ? PUD diet ? Metronidazole 500 mg IV every 8 hours and Levaquin 750 mg IV qday (01/10- ? Multimodal analgesia including Tylenol and breakthrough morphine ? Will order repeat imaging when there is less than 20 cc/24 hours for drain, currently draining 45 cc/24 hours #Community-acquired pneumonia Patient had 2 days fever, new onset cough x 5 days, no sputum production CT Abdo/pelvis showed left base pneumonia Plan: ? Levofloxacin 750 mg IV daily for CAP coverage. ? Tessalon Perles as needed #Hyperlipidemia Chronic Plan: ? Continue home Lipitor 10 mg at bedtime #Health Maintenance Disposition: MedSurg DVT prophylaxis: Lovenox GI prophylaxis: Protonix Diet: PUD CODE STATUS: Full Case discussed with my attending Dr. Aureliano Fuentes MD PGY-1 Attending Provider Attestation/Addendum I have discussed and was present for the essential components of the history, physical examination, diagnosis, and treatment plan with the resident. I agree with the patient's care as documented by the resident and amended herein by me. Gil Bedoya DO. Although this document has been carefully reviewed, there may still be some phonetic and other typographical errors. These errors are purely grammatical due to imperfections in the software program and should not be construed in any way to compromise the substance of the patient's medical care during this visit. Patient seen and evaluated this AM. In Short, patient is a 74-year-old male with significant past medical history of diverticulitis with peridiverticular abscess, gastritis and esophagitis who was admitted on 01/10 for recurrent episode of diverticulitis and another peridiverticular abscess measuring 4.8 x 5.7 cm. Patient was also subsequently found to have pneumonia. As such, patient started on IV levofloxacin and Flagyl for pneumonia and diverticulitis. A CT drain was also placed by IR on 01/11. Surgery was consulted, as per recommendations we will repeat CT abdomen and pelvis to assess for resolution after drain output has been less than 20 cc in a 24-hour period which has not yet been the case. Patient is doing well, no pain, no other complaints, labs have been within normal limits and the patient has been afebrile. Discharge likely 1 to 2 days pending drain output, imaging findings and specialist recommendations. Patient will also consider elective outpatient sigmoidectomy considering multiple repeat episodes of complicated diverticulitis.
[2025-01-14] MEDS: ENOXAPARIN SOD INJ 40 MG/0.4 ML SYRINGE SC (09:28)
[2025-01-14] MEDS: LEVOFLOXACIN/D5W 750MG IVPB 750 MG/150 ML BAG 100 MG IV (09:29)
[2025-01-14] MEDS: PANTOPRAZOLE 40 MG TABLET PO (09:29)
[2025-01-14] MEDS: POLYETHYLENE GLYCOL 17 GM PACKET PO (09:31)
--- NOTE | 2025-01-14 10:36 | CHAP ---
Patient was visited by he Spiritual Care Volunteer who prayed for them. (Volunteer was in the hospital from 10:03-10:36)
[2025-01-14] MEDS: ATORVASTATIN CALCIUM 10 MG TABLET PO (20:12)
[2025-01-14] MEDS: BENZONATATE 100 MG CAPSULE 200 MG PO (20:17)
[2025-01-15] VITALS (10 sets, daily range): BP systolic 123–147; BP diastolic 68–75; PULSE 76–99; RESP 18–25; TEMP 36.1–36.6; O2SAT 95–98
[2025-01-15] MEDS: metroNIDAZOLE/NS 500 MG IVPB 500 MG/100 ML BAG 200 MG IV ×3 (05:02→21:08)
[2025-01-15 07:10] LABS: Basophils # (Auto) 0.1 Thou/mm3 (0.0-0.2); Basophils % (Auto) 1 % (0-2.5); Eosinophils # (Auto) 0.3 Thou/mm3 (0.0-0.5); Eosinophils % (Auto) 3 % (0-10); Hematocrit 39.0 % (41.0-53.0); Hemoglobin 12.3 g/dL (13.5-16.0); Immature Granulocytes Auto 0.10 Thou/mm3 (0.00-0.00); Lymphocytes # (Auto) 1.6 Thou/mm3 (1.0-4.8); Lymphocytes % (Auto) 19 % (10-50); Mean Corpuscular HGB Conc 31.5 g/dl (31.0-37.0); Mean Corpuscular Hemoglobin 29.4 pg (25.0-35.0); Mean Corpuscular Volume 93 fL (80-100); Monocytes # (Auto) 0.6 Thou/mm3 (0.0-0.8); Monocytes % (Auto) 7 % (0-12); Neutrophils # (Auto) 6.0 Thou/mm3 (1.8-7.7); Neutrophils % (Auto) 69 % (37-80); Nucleated Red Blood Cell # 0.00 Thou/mm3 (0.00-0.00); Nucleated Red Blood Cell % 0 /100 WBC (0); Platelet Count 411 Thou/mm3 (140-440); RDW Standard Deviation 51.0 fL (35.1-43.9); Red Blood Count 4.19 Miln/mm3 (4.50-5.90); White Blood Count 8.6 Thou/mm3 (3.8-10.6)
[2025-01-15 07:53] LABS: Alanine Aminotransferase < 7 U/L (10-49); Albumin, Serum 3.5 gm/dL (3.4-4.8); Albumin/Globulin Ratio 1.1 (1.2-2.2); Alkaline Phosphatase 57 U/L (46-116); Anion Gap 8 (7-16); Aspartate Amino Transferase 15 U/L (0-34); BUN/Creatinine Ratio 15 Ratio (12-20); Bilirubin,Total 0.3 mg/dL (0.3-1.2); Blood Urea Nitrogen 15 mg/dL (9-23); Calcium 8.7 mg/dL (8.3-10.6); Calcium (Corrected) 9.1 mg/dL (8.5-10.1); Carbon Dioxide 28.5 mMol/L (20.0-31.0); Chloride 105 mMol/L (98-107); Creatinine (Component) 1.0 mg/dL (0.6-1.3); Estimated Creatinine Clearance 63.1 mL/min (>60); Globulin 3.1 gm/dL (2.3-3.5); Glucose 88 mg/dL (74-106); Magnesium 1.7 mg/dL (1.6-2.6); Osmolality,Calculated 281 (275-295); Phosphorous 3.5 mg/dL (2.4-5.1); Potassium 4.3 mMol/L (3.4-5.1); Sodium 141 mMol/L (136-145); Total Protein 6.6 gm/dL (5.7-8.2); eGFR > 60 See Note
[2025-01-15] MEDS: PANTOPRAZOLE 40 MG TABLET PO (10:16)
[2025-01-15] MEDS: POLYETHYLENE GLYCOL 17 GM PACKET PO (10:16)
[2025-01-15] MEDS: LEVOFLOXACIN/D5W 750MG IVPB 750 MG/150 ML BAG 100 MG IV (10:16)
[2025-01-15] MEDS: ENOXAPARIN SOD INJ 40 MG/0.4 ML SYRINGE SC (10:16)
--- NOTE | 2025-01-15 11:56 | ESPR_ITS ---
<Statement entered by Debra Hudson MD - 01/15/25 13:42> I have reviewed the note and agree with the resident's assessment & plan with exceptions as below. I have personally reviewed labs, imaging, home meds/prior records, examined the patient, formulated and discussed management plan with the IM team. Pt examined at bedside today. Pt reports he is doing well, tolerating PO diet and is wondering when he is going to go home. Surgery on consult, recommend repeat CT once drain is less than 20 cc/24 hour period. Last 24 hour period shows 29 ccs. Will continue with drain and will repeat CT once able. Pending final cultures include bacterial and fungal from abscess. Continue with IV Levaquin and Flagyl. Repeat hematology and chemistry in AM. Pt will not require PT eval upon d/c in which he will go home. Debra Hudson, PGY-2 Internal Medicine Documentation for date of: 01/15/25 Subjective Subjective Interval history: Patient seen at bedside today. No acute overnight events. Patient reports that he is doing well, expresses minimal abdominal pain, has not vomitted. He also had a bowel movement yesterday. No other complaints at this time. Exam Vital Signs Temp Pulse Resp BP Pulse Ox O2 Del Method O2 Flow Rate 96.9 F 82 18 147/69 H 96 Room Air 3 01/15/25 11:52 01/15/25 11:52 01/15/25 11:52 01/15/25 11:52 01/15/25 11:52 01/15/25 11:52 01/11/25 12:05 Narrative Exam General: Alert, laying in bed on a 30 degree incline, no acute distress, obese Skin: Warm, dry, intact, no obvious rash. Head: Normocephalic, atraumatic. Cardiovascular: S1+S2. Regular rate and rhythm, no murmurs appreciated on auscultation. Respiratory: Lungs are clear to auscultation, respirations unlabored, no crackles, no wheezing. Gastrointestinal: Soft, no tenderness to palpation. No guarding or rebound tenderness. No organomegaly. Bowel sounds present. Abdominal drain present, draining seroanginous fluid Extremities: No edema, no cyanosis, no clubbing. 2+ radial pulse bilaterally, 2+ posterior tibial pulse bilaterally. Neuro: No focal deficits observed. Conversant, moving all extremities. No overt cerebellar signs/incoordination. Psychiatric: Cooperative, appropriate affect Objective Labs 01/16/25 03:56 01/16/25 03:56 Labs: Laboratory Results - last 24 hr 01/15/25 06:25 WBC 8.6 RBC 4.19 L Hgb 12.3 L Hct 39.0 L MCV 93 MCH 29.4 MCHC 31.5 RDW Std Deviation 51.0 H Plt Count 411 D Neut % (Auto) 69 Lymph % (Auto) 19 [place] % (Auto) 7 Eos % (Auto) 3 Baso % (Auto) 1 Neut # (Auto) 6.0 Lymph # (Auto) 1.6 [place] # (Auto) 0.6 Eos # (Auto) 0.3 Baso # (Auto) 0.1 Immature Gran # (Auto) 0.10 H Absolute Nucleated RBC 0.00 Immature Gran % 1 H Nucleated RBC % 0 Sodium 141 Potassium 4.3 Chloride 105 Carbon Dioxide 28.5 Anion Gap 8 BUN 15 Creatinine 1.0 Estim Creat Clear Calc 63.1 eGFR > 60 BUN/Creatinine Ratio 15 Glucose 88 Calculated Osmolality 281 Calcium 8.7 Corrected Calcium 9.1 Phosphorus 3.5 Magnesium 1.7 Total Bilirubin 0.3 AST 15 ALT < 7 L Alkaline Phosphatase 57 Total Protein 6.6 Albumin 3.5 Globulin 3.1 Albumin/Globulin Ratio 1.1 L Quality Measures Quality Measures none Advance care planning discussed with:: patient Assessment & Plan Assessment Current Active Medications: Generic Name Dose Route Start Last Admin Trade Name Freq PRN Reason Stop Dose Admin Acetaminophen 650 mg 01/10/25 16:26 Acetaminophen 325 Mg Tablet PO 02/09/25 16:25 Q6HR PRN Fever >100.4 or pain 1-3 Albuterol/Ipratropium 3 ml 01/11/25 17:36 01/12/25 08:53 Albuterol/Ipratropium (Duoneb) Rt Dyana 3 Ml Nebu INH 02/10/25 18:59 3 ml Q6HRRT PRN Administration wheezing or SOB Atorvastatin Calcium 10 mg 01/10/25 21:00 01/14/25 20:12 Atorvastatin Calcium 10 Mg Tablet PO 02/09/25 20:59 10 mg HS MIN Administration Benzonatate 200 mg 01/10/25 16:21 01/14/25 20:17 Benzonatate 100 Mg Capsule PO 02/09/25 16:20 200 mg Q8HR PRN Administration cough Protocol Enoxaparin Sodium 40 mg 01/10/25 18:30 01/15/25 10:16 Enoxaparin Sod Inj 40 Mg/0.4 Ml Syringe SC 01/24/25 18:29 40 mg QDAY MIN Administration Levofloxacin/Dextrose 750 mg in 150 mls @ 100 mls/hr 01/10/25 16:30 01/15/25 10:16 Levaquin Ivpb IV 01/17/25 16:29 100 mls/hr QDAY MIN Administration Metronidazole 500 mg in 100 mls @ 200 mls/hr 01/10/25 16:21 01/15/25 05:02 Flagyl 500 Mg Iv IV 01/17/25 16:20 200 mls/hr Q8HR MIN Administration Morphine Sulfate 2 mg 01/10/25 16:35 Morphine Sulf Inj 10 Mg/Ml Vial IVP 01/15/25 16:34 Q4H PRN abdominal pain Protocol Pantoprazole Sodium 40 mg 01/14/25 09:00 01/15/25 10:16 Pantoprazole 40 Mg Tablet PO 02/12/25 08:59 40 mg QDAY MIN Administration Polyethylene Glycol 17 gm 01/11/25 09:00 01/15/25 10:16 Polyethylene Glycol 17 Gm Packet PO 02/10/25 08:59 17 gm QDAY MIN Administration Plan Assessment: 74-year-old male with a past medical history of diverticulitis, gastritis, and esophagitis who is admitted for diverticulitis with peridiverticular abscess. #Diverticulitis, improving #Peridiverticular abscess, s/p drain, improving CT abdomen/pelvis 01/10/25 showed left base pneumonia, acute sigmoid diverticulitis, peridiverticular abscess measuring 4.8 x 5.7 cm, no mention of perforation Spoke with General Surgery, who wants imaging once bag is only draining less than 20 cc in 24 hour period Current drainge 39 cc/24hr Plan: ? General surgery on consult, Dr. Bennett, appreciate recs ? PUD diet ? Metronidazole 500 mg IV every 8 hours and Levaquin 750 mg IV qday (01/10- ? Multimodal analgesia including Tylenol and breakthrough morphine ? Will order repeat imaging when there is less than 20 cc/24 hours for drain, currently draining 45 cc/24 hours #Community-acquired pneumonia Patient had 2 days fever, new onset cough x 5 days, no sputum production CT Abdo/pelvis showed left base pneumonia Plan: ? Levofloxacin 750 mg IV daily for CAP coverage. ? Tessalon Perles as needed #Hyperlipidemia Chronic Plan: ? Continue home Lipitor 10 mg at bedtime #Health Maintenance Disposition: MedSurg DVT prophylaxis: Lovenox GI prophylaxis: Protonix Diet: PUD CODE STATUS: Full Case discussed with my attending Dr. Fuentes , and senior resident, Dr. Tristan Fuentes MD PGY-1 Attending Provider Attestation/Addendum 74-year-old male patient with diverticular disease, admitted for recurrent sigmoid diverticulitis and perianal diverticular abscess. Patient is on IV antibiotic. Imaging also revealed left basal pneumonia. Patient has been evaluated by general surgery for possible elective sigmoidectomy. Discussed with housestaff.
--- NOTE | 2025-01-15 16:28 | PC.SS ---
Rounding note: Pt. pending CT scan.
[2025-01-15] MEDS: ATORVASTATIN CALCIUM 10 MG TABLET PO (21:07)
[2025-01-15] MEDS: BENZONATATE 100 MG CAPSULE 200 MG PO (21:07)
[2025-01-16] VITALS (7 sets, daily range): BP systolic 108–129; BP diastolic 69–78; PULSE 74–102; RESP 16–18; TEMP 36.1–36.5; O2SAT 95–99
[2025-01-16 05:48] LABS: Basophils # (Auto) 0.1 Thou/mm3 (0.0-0.2); Basophils % (Auto) 1 % (0-2.5); Eosinophils # (Auto) 0.3 Thou/mm3 (0.0-0.5); Eosinophils % (Auto) 3 % (0-10); Hematocrit 37.3 % (41.0-53.0); Hemoglobin 11.6 g/dL (13.5-16.0); Immature Granulocytes Auto 0.03 Thou/mm3 (0.00-0.00); Lymphocytes # (Auto) 1.6 Thou/mm3 (1.0-4.8); Lymphocytes % (Auto) 18 % (10-50); Mean Corpuscular HGB Conc 31.1 g/dl (31.0-37.0); Mean Corpuscular Hemoglobin 29.4 pg (25.0-35.0); Mean Corpuscular Volume 95 fL (80-100); Monocytes # (Auto) 0.6 Thou/mm3 (0.0-0.8); Monocytes % (Auto) 7 % (0-12); Neutrophils # (Auto) 6.0 Thou/mm3 (1.8-7.7); Neutrophils % (Auto) 71 % (37-80); Nucleated Red Blood Cell # 0.00 Thou/mm3 (0.00-0.00); Nucleated Red Blood Cell % 0 /100 WBC (0); Platelet Count 390 Thou/mm3 (140-440); RDW Standard Deviation 52.2 fL (35.1-43.9); Red Blood Count 3.94 Miln/mm3 (4.50-5.90); White Blood Count 8.5 Thou/mm3 (3.8-10.6)
[2025-01-16] MEDS: metroNIDAZOLE/NS 500 MG IVPB 500 MG/100 ML BAG 200 MG IV (06:15)
[2025-01-16 06:35] LABS: Alanine Aminotransferase < 7 U/L (10-49); Albumin, Serum 3.2 gm/dL (3.4-4.8); Albumin/Globulin Ratio 1.1 (1.2-2.2); Alkaline Phosphatase 52 U/L (46-116); Anion Gap 9 (7-16); Aspartate Amino Transferase 14 U/L (0-34); BUN/Creatinine Ratio 14 Ratio (12-20); Bilirubin,Total 0.2 mg/dL (0.3-1.2); Blood Urea Nitrogen 13 mg/dL (9-23); Calcium 8.4 mg/dL (8.3-10.6); Calcium (Corrected) 9.0 mg/dL (8.5-10.1); Carbon Dioxide 27.2 mMol/L (20.0-31.0); Chloride 105 mMol/L (98-107); Creatinine (Component) 0.9 mg/dL (0.6-1.3); Estimated Creatinine Clearance 70.1 mL/min (>60); Globulin 3.0 gm/dL (2.3-3.5); Glucose 117 mg/dL (74-106); Magnesium 1.8 mg/dL (1.6-2.6); Osmolality,Calculated 282 (275-295); Phosphorous 2.8 mg/dL (2.4-5.1); Potassium 3.8 mMol/L (3.4-5.1); Sodium 141 mMol/L (136-145); Total Protein 6.2 gm/dL (5.7-8.2); eGFR > 60 See Note
--- NOTE | 2025-01-16 08:14 | XR_ITS ---
Examination: CT abdomen and pelvis without contrast. Coronal 3-D reconstructions. Sagittal 2-D reconstructions. Date and time of exam:January 16, 2025, 11:50 AM INDICATIONS: History pelvic abscess post drainage tube placement January 11, 2025 CTDI: vol (mGy): 11.4 DLP: (mGycm): 730 Technique: Axial images of the abdomen have been obtained, 3 mm slice thickness Intravenous contrast material has not been administered. Low dose protocols were performed. One or more of the following dose reduction techniques were used; automated exposure control, adjustment of the mA and/or KV according to patient size, use of iterative reconstruction technique. Findings: No focal liver or splenic lesions No gallstones No pancreatic mass No hydronephrosis. Abdominal aortic calcification no aneurysmal dilatation No pericecal inflammatory change Colonic diverticulosis Anterior pelvic abscess is noted with the drainage catheter in satisfactory position The abscess is primarily air and measures 4.3 x 3.0 cm IMPRESSION: Anterior pelvic abscess is noted with abscess drainage catheter in satisfactory position The abscess is primarily air at this time and measures 4.3 x 3.0 cm
[2025-01-16] MEDS: LEVOFLOXACIN/D5W 750MG IVPB 750 MG/150 ML BAG 100 MG IV (08:47)
[2025-01-16] MEDS: ENOXAPARIN SOD INJ 40 MG/0.4 ML SYRINGE SC (08:47)
[2025-01-16] MEDS: PANTOPRAZOLE 40 MG TABLET PO (08:47)
[2025-01-16] MEDS: ALBUTEROL/IPRATROPIUM (Duoneb) RT SOL 3 ML NEBU INH (10:38)
--- NOTE | 2025-01-16 11:40 | PC.NURSE ---
pt going down to CT accompanied by THREAD TWISTER, pt in no sign of distress, denies pain.
--- NOTE | 2025-01-16 12:00 | PC.NURSE ---
pt. back from ct.
--- NOTE | 2025-01-16 12:43 | PD.SURPROG ---
Documentation for date of: 01/16/25 Subjective Subjective Brief History: 74M treated in 2022 for diverticular abscess admitted on 01/10 with mild RLQ pain and subjective fevers. Patient felt overall his symptoms were not as severe as when he was manage before however on workup he was found to have a peridiverticular abscess up to 5.7cm in which a drain was placed yesterday. So far he has had around 75 cc output today, he reports feeling very well with no current pain, no nausea, he is tolerating diet and having regular bowel movements. He also denies pneumaturia or fecaluria Patient states he had a similar episode of pain a month ago which was treated with outpatient antibiotics. He underwent colonoscopy in 2023 with findings of erythematous mucosa (biopsy negative) and diverticulosis PMH: Prostate CA, HLD PSHx: Prostatectomy, hernia repair Meds: No antiplt or anticoagulation Allergies: NKDA Narrative: Pt continues to feel well with little to no pain, no nausea and tolerating regular diet, remaining afebrile with normal WBC. Today CT AP repeated showing abscess contains primarily air, radiologist confirmed it is ok to remove drain Exam Vital Signs Temp Pulse Resp BP Pulse Ox O2 Del Method O2 Flow Rate 97.7 F 79 18 108/78 99 Room Air 3 01/16/25 08:00 01/16/25 10:38 01/16/25 10:38 01/16/25 08:00 01/16/25 10:38 01/16/25 08:00 01/11/25 12:05 Constitutional Constitutional: no acute distress Routine Respiratory Exam Respiratory: Present no resp distress Routine Abdominal Exam Abdominal: Present soft and drain (LLQ drain with minimal purulent output); Absent tenderness or distended Results Results: Laboratory Laboratory results: results reviewed Results: Imaging CT scan - abdomen: report reviewed and image reviewed Assessment & Plan Plan 74M treated in the past for complicated diverticulitis admitted 01/10 with diverticular abscess status post drain placement 01/11, now resolved and drain removed OK for dc from my standpoint Will follow up as outpt to discuss elective sigmoidectomy
--- NOTE | 2025-01-16 14:21 | PD.RESDS ---
Planned Discharge Date 01/16/25 DS: Providers Provider Date of admission: 01/10/25 13:59 Primary care physician: Ebony Basurto MD Admitting Provider: Lauri Bedoya DO Attending Provider on Admission: Peña Fuentes MD Consults: 01/12/25 08:47 Consult to General Surgery Routine Comment: Drain removal Consulting Provider: Anisha Aden Attending Provider on DC: Peña Fuentes MD Discharging Provider: Peña Fuentes MD DS: Diagnosis Problem List Completed Was Problem List Reviewed/Reconciled?: Yes Hospital Course Hospital Course Hospital course: 74-year-old male with a past medical history of diverticulitis and abscess (requiring drain), gastritis, and esophagitis who was admitted to [facility] on 01/10/2025 for diverticulitis w/peridiverticular abscess requiring Drain. He has presented to the ED with a temperature of 97.6, heart rate 86, respiratory rate 18, oxygen saturation 96% on room air. No notable lab findings on blood work, creatinine 1.1, glucose 99, LFTs within normal limits. CT abdomen/pelvis showed left base pneumonia, acute sigmoid diverticulitis, peridiverticular abscess measuring 4.8 x 5.7 cm, no mention of perforation. Dr. Kan, Radio Survey Worker, was consulted in addition to IR. Pt was then admitted for CT-guided insertion of drain and IV abx for diverticulitis w/abscess. While on the floors, IR had put in drain for patient which had continuous output from bag that was monitored daily. General surgery was consulted, Dr. Aden, for further recommendations on drain management. CT Abd/Pelvis was ordered some days after as output of drain had begun to slow down which showed a decrease in abscess size to 4.3 x 3.0 cm. Pt then had drain removed by general surgery and was cleared for discharged. Pt is to follow up with general surgery outpatient in regards to a possible elective sigmoidectomy. Pt was then discharged with an antibiotic course and the following recommendations. Discharge Instructions: Follow up with PCP within one week Follow up with General surgeon, Dr. Aden, within one to two weeks of discharge Finish up your antibiotic course Use your cough medicine as prescribed I am prescribing you Protonix, use as prescribed as this is for GERD Return to ER if your symptoms worsen or return Problem List: #Diverticulitis, improving #Peridiverticular abscess, s/p drain #Community-acquired pneumonia #Hyperlipidemia Discharge summary was reviewed with my attending Dr. Alfredo Hudson, PGY-2 Time Spent with Patient Time attestation: Total time spent providing and/or coordinating discharge services: Time spent: Greater than 30 minutes Exam Vital Signs Temp Pulse Resp BP Pulse Ox O2 Del Method O2 Flow Rate 97.6 F 102 H 16 129/69 96 Room Air 3 01/16/25 11:15 01/16/25 12:47 01/16/25 11:15 01/16/25 11:15 01/16/25 11:15 01/16/25 11:15 01/11/25 12:05 Narrative Exam General: Alert, laying in bed on a 30 degree incline, no acute distress, obese Skin: Warm, dry, intact, no obvious rash. Head: Normocephalic, atraumatic. Cardiovascular: S1+S2. Regular rate and rhythm, no murmurs appreciated on auscultation. Respiratory: Lungs are clear to auscultation, respirations unlabored, no crackles, no wheezing. Gastrointestinal: Soft, no tenderness to palpation. Drain removed Extremities: No edema, no cyanosis, no clubbing. 2+ radial pulse bilaterally, 2+ posterior tibial pulse bilaterally. Neuro: No focal deficits observed. Conversant, moving all extremities. No overt cerebellar signs/incoordination. Psychiatric: Cooperative, appropriate affect Discharge Plan Plan Patient Disposition: HOME (Self Care) Patient condition on transfer: Stable Care Plan Goals: Discharge Instructions: Follow up with PCP within one week Follow up with General surgeon, Dr. Aden, within one to two weeks of discharge Finish up your antibiotic course Use your cough medicine as prescribed I am prescribing you Protonix, use as prescribed as this is for GERD Return to ER if your symptoms worsen or return Prescriptions/Referrals Prescriptions/Med Rec: New levofloxacin 750 mg tablet 750 mg PO QDAY 10 Days Qty: 10 0RF Rx Instructions: Take one tablet by mouth every day metronidazole 500 mg tablet 500 mg PO Q8H 10 Days Qty: 30 0RF Rx Instructions: Take one tablet by mouth every day pantoprazole [Protonix] 40 mg tablet,delayed release (DR/EC) 40 mg PO QDAY 30 Days Qty: 30 0RF Rx Instructions: Take one tablet by mouth before food benzonatate 100 mg capsule 100 mg PO BID PRN (Reason: cough) 30 Days Qty: 30 0RF Rx Instructions: Take one tablet by mouth as needed for cough Continued atorvastatin 10 mg tablet 10 mg PO QDAY Patient Comments: TAKE 1 TABLET BY MOUTH EVERY DAY Referrals: Anisha Aden MD [Physician] - (You will receive a phone call to confirm a follow-up appt with me in 3 weeks) Ebony Basurto MD [Primary Care Provider] - Patient/Caregiver Discharge Instructions Discharge Activity: activity as tolerated Education Materials: What Is Pneumonia?, Surgical Drain Care, ED Abscess Antibiotic ... Print Language: Icelandic Stand Alone Forms: Bernarda Award Info., Patient Portal Info Letter Discharge Order Discharge Orders: Discharge (Routine); Ordered 01/16/25 Ordered By: Debra Hudson Quality Discharge Quality Measures VTE prophylaxis (Lovenox ) Attestestation Attestation I discussed with and supervised the resident physician who took care of this patient. I agree with the assessment and discharge plan as above. Follow-up with your primary care provider as scheduled. Return to the emergency room for recurrent symptoms.
--- NOTE | 2025-01-16 14:28 | PC.SS ---
Rounding note: Pt. to be d/c today, no additional needs identified.
--- NOTE | 2025-01-17 08:34 | CHAP ---
Patient was visited by a Spiritual Care Volunteer on 01/16/2025 between 0900 and 1200 and received comfort, encouragement and/or prayer.
== END 2025-01-16 16:03 | disposition home or self-care (01) | DRG 391 ==
LOC: SERX 13:03 → SERHOLD 14:06 → S3NX 18:43
PROVIDERS: Physician Assistant; Radiology Diagnostic Radiology; Admitting Provider Student in an Organized Health Care Education/Training Program; Emergency Provider Emergency Medicine; PCP Family Medicine; Visit Provider Internal Medicine
DX: K57.20 Diverticulitis of large intestine with perforation and abscess without bleeding (principal); J18.9 Pneumonia, unspecified organism; K20.90 Esophagitis, unspecified without bleeding; K29.70 Gastritis, unspecified, without bleeding; Z90.79 Acquired absence of other genital organ(s); Z85.46 Personal history of malignant neoplasm of prostate; E78.5 Hyperlipidemia, unspecified; Z79.899 Other long term (current) drug therapy
CPT/HCPCS: 36415; 74176; 74177; 75989; 80053; 81001; 83690; 83735; 84100; 84443; 85025; 85610; 85730; 87070; 87077; 87102; 87186; 87205; 93225; 94640; 94664; 96365; 96366; 99284; A4649; A9270; C1729; J1650; J1956; J2470; J3010; J3490; Q9967; J1836

== ENCOUNTER → 2025-01-29 | Outpatient (CLI) | payer OTHER, MEDICARE, SELFPAY ==
--- NOTE | 2025-01-29 10:06 | XR_ITS ---
Examination: PA lateral chest 2 views TECHNIQUE: Upright PA lateral chest 2 views Date and time: January 29, 2025 1048 hours Comparison January 06, 2016 INDICATIONS: Fatty fever diagnosis, coccidioidomycosis, 30 years ago FINDINGS: Minor prominence left ventricle Interstitial disease at the lung bases No lobar pneumonia. No pulmonary edema IMPRESSION: Suspicious for pulmonary fibrosis at the lung bases
[2025-01-29 12:09] LABS: Basophils # (Auto) 0.1 Thou/mm3 (0.0-0.2); Basophils % (Auto) 1 % (0-2.5); Eosinophils # (Auto) 0.2 Thou/mm3 (0.0-0.5); Eosinophils % (Auto) 3 % (0-10); Hematocrit 41.3 % (41.0-53.0); Hemoglobin 13.1 g/dL (13.5-16.0); Immature Granulocytes Auto 0.04 Thou/mm3 (0.00-0.00); Lymphocytes # (Auto) 1.4 Thou/mm3 (1.0-4.8); Lymphocytes % (Auto) 18 % (10-50); Mean Corpuscular HGB Conc 31.7 g/dl (31.0-37.0); Mean Corpuscular Hemoglobin 29.6 pg (25.0-35.0); Mean Corpuscular Volume 93 fL (80-100); Monocytes # (Auto) 0.6 Thou/mm3 (0.0-0.8); Monocytes % (Auto) 7 % (0-12); Neutrophils # (Auto) 5.3 Thou/mm3 (1.8-7.7); Neutrophils % (Auto) 70 % (37-80); Nucleated Red Blood Cell # 0.00 Thou/mm3 (0.00-0.00); Nucleated Red Blood Cell % 0 /100 WBC (0); Platelet Count 397 Thou/mm3 (140-440); RDW Standard Deviation 53.9 fL (35.1-43.9); Red Blood Count 4.43 Miln/mm3 (4.50-5.90); White Blood Count 7.6 Thou/mm3 (3.8-10.6)
[2025-01-29 12:45] LABS: Alanine Aminotransferase < 7 U/L (10-49); Albumin, Serum 3.7 gm/dL (3.4-4.8); Albumin/Globulin Ratio 1.2 (1.2-2.2); Alkaline Phosphatase 66 U/L (46-116); Anion Gap 9 (7-16); Aspartate Amino Transferase 19 U/L (0-34); BUN/Creatinine Ratio 12 Ratio (12-20); Bilirubin,Total 0.3 mg/dL (0.3-1.2); Blood Urea Nitrogen 12 mg/dL (9-23); Calcium 8.9 mg/dL (8.3-10.6); Calcium (Corrected) 9.1 mg/dL (8.5-10.1); Carbon Dioxide 27.5 mMol/L (20.0-31.0); Chloride 105 mMol/L (98-107); Creatinine (Component) 1.0 mg/dL (0.6-1.3); Globulin 3.0 gm/dL (2.3-3.5); Glucose 95 mg/dL (74-106); Osmolality,Calculated 280 (275-295); Potassium 4.4 mMol/L (3.4-5.1); Sodium 141 mMol/L (136-145); Total Protein 6.7 gm/dL (5.7-8.2); eGFR > 60 See Note
== END | disposition home or self-care (01) ==
LOC: COPL 10:00
PROVIDERS: PCP Family Medicine; Referring Provider Physician Assistant; Visit Provider Radiology Diagnostic Radiology
DX: J18.9 Pneumonia, unspecified organism (principal); K57.00 Diverticulitis of small intestine with perforation and abscess without bleeding
CPT/HCPCS: 36415; 71046; 80053; 85025

== ENCOUNTER 2025-02-05 09:22 | Outpatient (AMB) | payer MEDICARE, OTHER, SELFPAY ==
--- NOTE | 2025-02-05 09:37 | GSCOFFNT_ITS ---
[facility] - [facility] 02/05/25 09:39 Height 1.78 m Height Method Measured Weight 97.125 kg Weight Measurement Method Standing Scale BMI 30.7 BP 123/69 Blood Pressure Source Automatic Cuff Blood Pressure Location Left Upper Arm Position Sitting Respiration 18 Pulse 79 Pulse Source Monitor Temp 98.3 F Temp Source Temporal Artery Scan Pulse Oximetry (%) 95 Oxygen Delivery Method Room Air Med/Allergies Allergies & Medications Allergies No Known Allergies Allergy (Verified 02/05/25 09:40) Medication Reconciliation atorvastatin 10 mg tablet 10 mg PO QDAY 02/28/24 [History Confirmed 02/05/25] benzonatate 100 mg capsule 100 mg PO BID PRN cough 1 month #30 caps 01/16/25 [Rx Confirmed 02/05/25] pantoprazole 40 mg tablet,delayed release (Protonix) 40 mg PO QDAY 1 month #30 tabs 01/16/25 [Rx Confirmed 02/05/25] MA Intake Visit Data Collection New Patient or Established: Established Patient (seen at [facility] within 3 years) Seen by Clinical Staff ONLY (RN/MA): No Reason for Visit:: FOLLOW UP Pain Present Currently: No Pain Scale Used: Caicedo-Louis/Numerical Chief Deputy Coroner Required: No PCP or OBGYN visit in last 3 months: Yes Hx Now: No Do You Feel Safe at Home: Yes Authorities Contacted: N/A Smoking Status Smoking Status: Never smoker Immunization / Flu Flu Vaccine in the Last 12 Months: No Flu Vaccine Exclusion Criteria: Refused by Patient Past Medical History Past Medical History NEUROLOGIC: Negative Neurological Disorders or Seizures CARDIAC: Positive Hypercholesterolemia and Hypertension; Negative Cardiac Disorders or Congestive Heart Failure RESPIRATORY: Negative Chronic Obstructive Pulmonary Disease (COPD) or Asthma GASTROINTESTINAL: Positive Gastrointestinal Disorders, Diverticulitis, Diverticulosis and Gastroesophageal Reflux Disease GENITOURINARY: Positive Prostate Cancer (pt had prostate removed); Negative Genitourinary Disorders or Renal Disease REPRODUCTIVE: Negative Fibroids ENT: Positive Cataracts (Bilateral, post surgery) ENDOCRINE: Negative Endocrine Disorders, Diabetes Mellitus Type 1 or Diabetes Mellitus Type 2 HEMATOLOGIC: Negative Blood Disorders or Sickle Cell Disease PSYCHO/SOCIAL: Negative Depression or Anxiety OTHER HISTORY: Positive Chicken Pox, Measles, Mumps, Cancer and Prostate Cancer (pt had prostate removed); Negative Blood Transfusions, Anesthesia Reactions, Organ Transplant, MRSA, VRSA, Vancomycin-Resistant Enterococci, Human Immunodeficiency Virus (HIV) or Clostridium Difficile Family History FAMILY HISTORY: Positive Family Respiratory Disorders, Family Cardiac Disorders, Family Gastrointestinal Problems, Family Cancer and Family Surgery; Negative Family Psychiatric Problems or Family Anesthesia Reaction Surgical History SURGICAL: Positive Abdominal Surgery; Negative Cardiac Surgery, Endocrine Surgery, Thyroidectomy, Ear Surgery, Nephrectomy, Transurethral Resection, Joint Replacement or Organ Transplant Social History SMOKING STATUS: Smoking status: Never smoker ALCOHOL: Alcohol Intake: Current ALCOHOL FREQUENCY: Alcohol Intake Frequency: holidays/special occasions only HOUSING: Housing: House LIVES WITH: Lives With: Children HPI HPI Narrative 74M with HLD, recurrent diverticulitis presenting for discussion of elective sigmoidectomy. Pt has had episodes of diverticulitis since 2022, resulting in two hospitalizations requiring percutaneous drain placement and one episode during which he was treated with antibiotics as an outpatient. Pt states he has had additional episodes of LLQ pain which self-resolved not requiring any intervention. He is interested in having surgery as he prefers to avoid any future hospitalizations and also because his family tends to live well into their 90s, so he would like to have an improved quality of life for his remaining years. Pt underwent colonoscopy September 2023 which showed erythematous mucosa (biopsy n egative) and severe diverticulosis of the sigmoid and descending colon As of now pt feels well, he has not had any abdominal pain since discharge home. He completed his antibiotic course and did notice some loose stool but states this is improving. His appetite has not fully returned to normal PMH: HLD, recurrent diverticulitis PSHx: Inguinal hernia repair, robotic prostatectomy Meds: Atorvastatin, protonix Allergies: NKDA Social hx: Nonsmoker, active without any assistive devices, cares for self ROS Review of Systems Systems Reviewed: All systems reviewed, normal except as documented Objective/Exam General General Appearance: alert, cooperative and well groomed Resp Respiratory exam: Absent respiratory distress Results CTs, colonoscopy reviewed Assessment & Plan Diagnosis / Problem List (1) Diverticulitis large intestine: Status: Acute Assessment & Plan: 74M with HLD, history of prostatectomy with recurrent complicated diverticulitis requiring percutaneous drainage x2 since 2022. I explained that sigmoidectomy is reasonable given the degree to which diverticulitis has disrupted his life and I explained risks including the potential need for a diverting ostomy, bleeding, anastomotic leak, hernia and recurrence of diverticulitis. I also provided him with his ACS NSQIP risk for colectomy which is approximately 10% for a serious complication, 13% any complication, 9% infection and estimates a 4.5 day length of stay. Pt is interested in proceeding with surgery, understands that it will be best undertaken 3 months after his last episode to minimize inflammation and in the meantime I will communicate with his PCP (Tanja Hines) and GI (Dr Kan) to confirm they are in agreement with this plan Plan: Follow up in 6 weeks Advanced Care Planning Advance care planning discussed with:: other Office Procedures GNS Level of Care Nursing/Assessment Patient Status: Established Patient Nursing Assessment/Reassesment: Medication Reconciliation, Update PMH in EMR and Vital Signs Coordination of Care: Complex Care and Chronic Disease 1-5, Consent,records obtained, informed consent, Education Simp Pt/Fam, Results/Orders obtained and Staff clarify orders Established Patient Charge Established Patient Point Assignment: 90 Established Patient Point Charge: EP Level 3 (80-115) Patient Portal Questionaires Social History Living Situation History Housing: House Housing Other:: Pt lives alone Tobacco History Smoking Status: Never smoker Alcohol History Alcohol Intake: Current Alcohol Intake Frequency: holidays/special occasions only Alcohol Intake Frequency Other:: once a month Domestic Abuse History Do You Feel Safe at Home: Yes Review of Systems Report any current symptoms Only answer those that you have currently: Past Medical History Past Medical History Have you ever been diagnosed with any of the following: Neurological Problems Seizures: No Cardiology Problems Hypercholesterolemia: Yes Congestive Heart Failure: No Hypertension: Yes Respiratory Problems Chronic Obstructive Pulmonary Disease (COPD): No Asthma: No Stomache/Intestinal Problems Diverticulitis: Yes Diverticulosis: Yes Gastroesophageal Reflux Disease: Yes Genital/Urinary Problems Renal Disease: No Prostate Cancer: Yes (pt had prostate removed) Reproductive Problems Fibroids: No Head,Eye,Nose,Throat Problems Cataracts: Yes (Bilateral, post surgery) Endocrine Problems Diabetes Mellitus Type 1: No Diabetes Mellitus Type 2: No Blood Problems Sickle Cell Disease: No Psychologic Problems Depression: No Anxiety: No Other Problems Blood Transfusions: No Anesthesia Reactions: No Organ Transplant: No MRSA: No VRSA: No Vancomycin-Resistant Enterococci: No Human Immunodeficiency Virus (HIV): No Chicken Pox: Yes Measles: Yes Mumps: Yes Clostridium Difficile: No Cancer: Yes Surgical History Thyroidectomy: No
[2025-02-05 09:39] VITALS: BP 123/69; PULSE 79; RESP 18; TEMP 36.8; O2SAT 95; BMI 30.7
== END 2025-02-05 10:22 | disposition home or self-care (01) ==
LOC: HODSRG 09:22
PROVIDERS: PCP Family Medicine; Referring Provider Family Medicine; Supervising Provider Surgery; Visit Provider Surgery
DX: K57.32 Diverticulitis of large intestine without perforation or abscess without bleeding (principal); I10 Essential (primary) hypertension; E78.00 Pure hypercholesterolemia, unspecified; K21.9 Gastro-esophageal reflux disease without esophagitis
CPT/HCPCS: 99213; G0463

== ENCOUNTER 2025-03-19 09:02 | Outpatient (AMB) | payer MEDICARE, OTHER, SELFPAY ==
[2025-03-19 09:10] VITALS: BP 124/82; PULSE 80; RESP 18; TEMP 36.7; O2SAT 97; BMI 29.2
--- NOTE | 2025-03-19 09:10 | GSCOFFNT_ITS ---
Vital Signs - [facility] 03/19/25 09:10 Height 1.78 m Height Method Measured Weight 92.646 kg Weight Measurement Method Standing Scale BMI 29.2 BP 124/82 Blood Pressure Source Automatic Cuff Blood Pressure Location Left Upper Arm Position Sitting Respiration 18 Pulse 80 Pulse Source Monitor Temp 98.1 F Temp Source Temporal Artery Scan Pulse Oximetry (%) 97 Oxygen Delivery Method Room Air Med/Allergies Allergies & Medications Allergies No Known Allergies Allergy (Verified 03/19/25 09:11) Medication Reconciliation atorvastatin 10 mg tablet 10 mg PO QDAY 02/28/24 [History Confirmed 03/19/25] MA Intake Visit Data Collection New Patient or Established: Established Patient (seen at [facility] within 3 years) Seen by Clinical Staff ONLY (RN/MA): No Reason for Visit:: 6 WEEK F/U Pain Present Currently: No Pain Scale Used: Caicedo-Louis/Numerical Interactive Web Developer Required: No PCP or OBGYN visit in last 3 months: Yes Hx Now: No Do You Feel Safe at Home: Yes Authorities Contacted: N/A Smoking Status Smoking Status: Never smoker Immunization / Flu Flu Vaccine in the Last 12 Months: Yes Flu Vaccine Exclusion Criteria: Already Received Past Medical History Past Medical History NEUROLOGIC: Negative Neurological Disorders or Seizures CARDIAC: Positive Hypercholesterolemia and Hypertension; Negative Cardiac Disorders or Congestive Heart Failure RESPIRATORY: Negative Chronic Obstructive Pulmonary Disease (COPD) or Asthma GASTROINTESTINAL: Positive Gastrointestinal Disorders, Diverticulitis, Diverticulosis and Gastroesophageal Reflux Disease GENITOURINARY: Positive Prostate Cancer (pt had prostate removed); Negative Genitourinary Disorders or Renal Disease REPRODUCTIVE: Negative Fibroids ENT: Positive Cataracts (Bilateral, post surgery) ENDOCRINE: Negative Endocrine Disorders, Diabetes Mellitus Type 1 or Diabetes Mellitus Type 2 HEMATOLOGIC: Negative Blood Disorders or Sickle Cell Disease PSYCHO/SOCIAL: Negative Depression or Anxiety OTHER HISTORY: Positive Chicken Pox, Measles, Mumps, Cancer and Prostate Cancer (pt had prostate removed); Negative Blood Transfusions, Anesthesia Reactions, Organ Transplant, MRSA, VRSA, Vancomycin-Resistant Enterococci, Human Immunodeficiency Virus (HIV) or Clostridium Difficile Family History FAMILY HISTORY: Positive Family Respiratory Disorders, Family Cardiac Disorders, Family Gastrointestinal Problems, Family Cancer and Family Surgery; Negative Family Psychiatric Problems or Family Anesthesia Reaction Surgical History SURGICAL: Positive Abdominal Surgery; Negative Cardiac Surgery, Endocrine Surgery, Thyroidectomy, Ear Surgery, Nephrectomy, Transurethral Resection, Joint Replacement or Organ Transplant Social History SMOKING STATUS: Smoking status: Never smoker ALCOHOL: Alcohol Intake: Current ALCOHOL FREQUENCY: Alcohol Intake Frequency: holidays/special occasions only HOUSING: Housing: House LIVES WITH: Lives With: Children HPI HPI Narrative 75M with HLD, recurrent diverticulitis here for planned follow up. Since last visit I faxed a letter to patient's PCP as well as GI detailing the plan for sigmoidectomy. Patient states he has been overall well except for in the past week he had an episode of what sounds like viral gastroenteritis, having abdominal pain, vomiting and diarrhea after eating leftovers. Patient states the symptoms did not feel exactly like when he had diverticulitis but he understandably gets nervous anytime he has any GI symptoms. He otherwise feels well with no new complaints ROS Review of Systems Systems Reviewed: All systems reviewed, normal except as documented Objective/Exam General General Appearance: alert, cooperative and well groomed Resp Respiratory exam: Absent respiratory distress Assessment & Plan Diagnosis / Problem List (1) Diverticulitis large intestine: Status: Acute Assessment & Plan: 75M with HLD, recurrent diverticulitis here for planned follow up. To allow for a full 3 months since his last episode I will plan on his surgery being in early April, and again I enumerated risks including bleeding, infection, the need for temporary ostomy, as well as anastomotic leak and injury to nearby structures including the ureter. All questions were answered and patient is agreeable to proceeding Plan for sigmoidectomy Wed May 02 Will follow up end of Mar to schedule and further discuss Advanced Care Planning Advance care planning discussed with:: other Office Procedures GNS Level of Care Nursing/Assessment Patient Status: Established Patient Nursing Assessment/Reassesment: Medication Reconciliation, Update PMH in EMR and Vital Signs Coordination of Care: Complex Care and Chronic Disease 1-5, Consent,records obtained, informed consent, Education Simp Pt/Fam, Results/Orders obtained and Staff clarify orders Established Patient Charge Established Patient Point Assignment: 90 Established Patient Point Charge: EP Level 3 (80-115) Patient Portal Questionaires Social History Living Situation History Housing: House Housing Other:: Pt lives alone Tobacco History Smoking Status: Never smoker Alcohol History Alcohol Intake: Current Alcohol Intake Frequency: holidays/special occasions only Alcohol Intake Frequency Other:: once a month Domestic Abuse History Do You Feel Safe at Home: Yes Review of Systems Report any current symptoms Only answer those that you have currently: Past Medical History Past Medical History Have you ever been diagnosed with any of the following: Neurological Problems Seizures: No Cardiology Problems Hypercholesterolemia: Yes Congestive Heart Failure: No Hypertension: Yes Respiratory Problems Chronic Obstructive Pulmonary Disease (COPD): No Asthma: No Stomache/Intestinal Problems Diverticulitis: Yes Diverticulosis: Yes Gastroesophageal Reflux Disease: Yes Genital/Urinary Problems Renal Disease: No Prostate Cancer: Yes (pt had prostate removed) Reproductive Problems Fibroids: No Head,Eye,Nose,Throat Problems Cataracts: Yes (Bilateral, post surgery) Endocrine Problems Diabetes Mellitus Type 1: No Diabetes Mellitus Type 2: No Blood Problems Sickle Cell Disease: No Psychologic Problems Depression: No Anxiety: No Other Problems Blood Transfusions: No Anesthesia Reactions: No Organ Transplant: No MRSA: No VRSA: No Vancomycin-Resistant Enterococci: No Human Immunodeficiency Virus (HIV): No Chicken Pox: Yes Measles: Yes Mumps: Yes Clostridium Difficile: No Cancer: Yes Surgical History Thyroidectomy: No
== END 2025-03-19 09:35 | disposition home or self-care (01) ==
LOC: HODSRG 09:02
PROVIDERS: PCP Family Medicine; Referring Provider Family Medicine; Supervising Provider Surgery; Visit Provider Surgery
DX: K57.32 Diverticulitis of large intestine without perforation or abscess without bleeding (principal); I10 Essential (primary) hypertension; E78.00 Pure hypercholesterolemia, unspecified; K21.9 Gastro-esophageal reflux disease without esophagitis
CPT/HCPCS: 99213; G0463

== ENCOUNTER → 2025-03-19 | Outpatient (CLI) | payer OTHER, SELFPAY ==
[2025-03-19 08:28] LABS: Basophils # (Auto) 0.1 Thou/mm3 (0.0-0.2); Basophils % (Auto) 1 % (0-2.5); Eosinophils # (Auto) 0.3 Thou/mm3 (0.0-0.5); Eosinophils % (Auto) 4 % (0-10); Hematocrit 36.8 % (41.0-53.0); Hemoglobin 11.9 g/dL (13.5-16.0); Immature Granulocytes Auto 0.03 Thou/mm3 (0.00-0.00); Lymphocytes # (Auto) 1.3 Thou/mm3 (1.0-4.8); Lymphocytes % (Auto) 18 % (10-50); Mean Corpuscular HGB Conc 32.3 g/dl (31.0-37.0); Mean Corpuscular Hemoglobin 30.1 pg (25.0-35.0); Mean Corpuscular Volume 93 fL (80-100); Monocytes # (Auto) 0.6 Thou/mm3 (0.0-0.8); Monocytes % (Auto) 9 % (0-12); Neutrophils # (Auto) 5.0 Thou/mm3 (1.8-7.7); Neutrophils % (Auto) 69 % (37-80); Nucleated Red Blood Cell # 0.00 Thou/mm3 (0.00-0.00); Nucleated Red Blood Cell % 0 /100 WBC (0); Platelet Count 386 Thou/mm3 (140-440); RDW Standard Deviation 50.1 fL (35.1-43.9); Red Blood Count 3.96 Miln/mm3 (4.50-5.90); White Blood Count 7.2 Thou/mm3 (3.8-10.6)
[2025-03-19 08:33] LABS: Alanine Aminotransferase 17 U/L (10-49); Albumin, Serum 3.8 gm/dL (3.4-4.8); Albumin/Globulin Ratio 1.2 (1.2-2.2); Alkaline Phosphatase 90 U/L (46-116); Anion Gap 9 (7-16); Aspartate Amino Transferase 23 U/L (0-34); BUN/Creatinine Ratio 12 Ratio (12-20); Bilirubin,Total 0.3 mg/dL (0.3-1.2); Blood Urea Nitrogen 13 mg/dL (9-23); Calcium 9.5 mg/dL (8.3-10.6); Calcium (Corrected) 9.7 mg/dL (8.5-10.1); Carbon Dioxide 26.1 mMol/L (20.0-31.0); Cardiac Risk Estimate 4.7 RATIO (4.0-6.7); Chloride 106 mMol/L (98-107); Cholesterol 161 mg/dL (132-200); Creatinine (Component) 1.1 mg/dL (0.6-1.3); Ferritin 463 ng/mL (10.5-307.3); Globulin 3.2 gm/dL (2.3-3.5); Glucose 97 mg/dL (74-106); HDL Cholesterol 34 mg/dL (40-60); Iron 37 mcg/dL (65-175); LDL Cholesterol,Calculated 109 mg/dL (0-130); Osmolality,Calculated 281 (275-295); Potassium 4.1 mMol/L (3.4-5.1); Sodium 141 mMol/L (136-145); Total Protein 7.0 gm/dL (5.7-8.2); Triglycerides 91 mg/dL (30-150); eGFR > 60 See Note
[2025-03-19 08:38] LABS: Glucose Estimated Average 100 mg/dL (80-131); Hemoglobin A1C 5.1 % Hgb (4.8-6.0)
== END | disposition home or self-care (01) ==
LOC: COPL 07:25
PROVIDERS: PCP Family Medicine; Referring Provider Physician Assistant; Visit Provider Physician Assistant
DX: D50.9 Iron deficiency anemia, unspecified (principal); E78.5 Hyperlipidemia, unspecified; R73.01 Impaired fasting glucose
CPT/HCPCS: 36415; 80053; 80061; 82728; 83036; 83540; 85025

== ENCOUNTER 2025-04-16 09:22 | Outpatient (AMB) | payer MEDICARE, OTHER, SELFPAY ==
--- NOTE | 2025-04-16 09:31 | PD.GSCLVISIT ---
Vital Signs - [facility] 04/16/25 09:34 Height 1.78 m Height Method Measured Weight 91.314 kg Weight Measurement Method Standing Scale BMI 28.8 BP 128/76 Blood Pressure Source Automatic Cuff Blood Pressure Location Left Upper Arm Position Sitting Respiration 18 Pulse 92 Pulse Source Monitor Temp 97.2 F Temp Source Temporal Artery Scan Pulse Oximetry (%) 95 Oxygen Delivery Method Room Air Med/Allergies Allergies & Medications Allergies No Known Allergies Allergy (Verified 04/16/25 09:37) Medication Reconciliation atorvastatin 10 mg tablet 10 mg PO QDAY 02/28/24 [History Confirmed 04/16/25] MA Intake Visit Data Collection New Patient or Established: Established Patient (seen at [facility] within 3 years) Seen by Clinical Staff ONLY (RN/MA): No Reason for Visit:: PRE OP ELECTIVE SIGMOIDECTOMY/4 WEEK F/U Pain Present Currently: No Pain Scale Used: Caicedo-Louis/Numerical Research And Development Chemist Required: No PCP or OBGYN visit in last 3 months: Yes Hx Now: No Do You Feel Safe at Home: Yes Authorities Contacted: N/A Smoking Status Smoking Status: Never smoker Immunization / Flu Flu Vaccine in the Last 12 Months: Yes Flu Vaccine Exclusion Criteria: Already Received Past Medical History Past Medical History NEUROLOGIC: Negative Neurological Disorders or Seizures CARDIAC: Positive Hypercholesterolemia and Hypertension; Negative Cardiac Disorders or Congestive Heart Failure RESPIRATORY: Negative Chronic Obstructive Pulmonary Disease (COPD) or Asthma GASTROINTESTINAL: Positive Gastrointestinal Disorders, Diverticulitis, Diverticulosis and Gastroesophageal Reflux Disease GENITOURINARY: Positive Prostate Cancer (pt had prostate removed); Negative Genitourinary Disorders or Renal Disease REPRODUCTIVE: Negative Fibroids ENT: Positive Cataracts (Bilateral, post surgery) ENDOCRINE: Negative Endocrine Disorders, Diabetes Mellitus Type 1 or Diabetes Mellitus Type 2 HEMATOLOGIC: Negative Blood Disorders or Sickle Cell Disease PSYCHO/SOCIAL: Negative Depression or Anxiety OTHER HISTORY: Positive Chicken Pox, Measles, Mumps, Cancer and Prostate Cancer (pt had prostate removed); Negative Blood Transfusions, Anesthesia Reactions, Organ Transplant, MRSA, VRSA, Vancomycin-Resistant Enterococci, Human Immunodeficiency Virus (HIV) or Clostridium Difficile Family History FAMILY HISTORY: Positive Family Respiratory Disorders, Family Cardiac Disorders, Family Gastrointestinal Problems, Family Cancer and Family Surgery; Negative Family Psychiatric Problems or Family Anesthesia Reaction Surgical History SURGICAL: Positive Abdominal Surgery; Negative Cardiac Surgery, Endocrine Surgery, Thyroidectomy, Ear Surgery, Nephrectomy, Transurethral Resection, Joint Replacement or Organ Transplant Social History SMOKING STATUS: Smoking status: Never smoker ALCOHOL: Alcohol Intake: Current ALCOHOL FREQUENCY: Alcohol Intake Frequency: holidays/special occasions only HOUSING: Housing: House LIVES WITH: Lives With: Children HPI HPI Narrative 75M with HLD, recurrent diverticulitis here for planned follow up. Pt states that since yesterday he has been feeling a bit unwell, he had a fever and has some LLQ discomfort. It is not outright pain but feels more like a twinge especially when he bends over and feels similar to previous episodes of diverticulitis. He considered seeking care in the ER yesterday but opted to wait since he knew his appointment was this morning. He did not take any pain medications or fever reducing medications, is having normal bowel movements without any constipation or diarrhea. He also noted a sensation of having to urinate without having much urine, but he denies any dysuria, pneumaturia or fecaluria Objective/Exam General General Appearance: alert, cooperative and well groomed Resp Respiratory exam: Absent respiratory distress Abdominal Abdominal exam: Present soft; Absent distention or tenderness Assessment & Plan Diagnosis / Problem List (1) Diverticulitis large intestine: Status: Acute Assessment & Plan: 75M with HLD, recurrent diverticulitis last hospitalized 12/2024 who was planned for elective sigmoidectomy 05/02/25 now with a recurrence of LLQ discomfort as well as fever yesterday which self-resolved. I recommended if he feels unwell for pt to go to ER for urgent evaluation but also offered the option of ordering stat CT which could be done as outpatient. Pt prefers to proceed with outpatient workup and based on CT results we will decide about whether he needs to be admitted as well as if to pursue surgery sooner. Pt understands that if he undergoes surgery in the setting of active inflammation he will more than likely require either a colostomy or diverting ileostomy and understandably prefers to avoid that, but also hopes to avoid any further episodes of diverticulitis Orders: Orders Basic Metabolic Panel 04/17/[address] abdomen pelvis w con 04/17/25 K57.32 - Diverticulitis of large intestine without perforation or abscess without bleeding Advanced Care Planning Advance care planning discussed with:: other Office Procedures GNS Level of Care Nursing/Assessment Patient Status: Established Patient Nursing Assessment/Reassesment: Medication Reconciliation, Update PMH in EMR and Vital Signs Coordination of Care: Complex Care and Chronic Disease 1-5, Education Complex Pt/Fam, Consent,records obtained, informed consent, Results/Orders obtained and Staff clarify orders Established Patient Charge Established Patient Point Assignment: 95 Established Patient Point Charge: EP Level 3 (80-115) Patient Portal Questionaires Social History Living Situation History Housing: House Housing Other:: Pt lives alone Tobacco History Smoking Status: Never smoker Alcohol History Alcohol Intake: Current Alcohol Intake Frequency: holidays/special occasions only Alcohol Intake Frequency Other:: once a month Domestic Abuse History Do You Feel Safe at Home: Yes Review of Systems Report any current symptoms Only answer those that you have currently: Past Medical History Past Medical History Have you ever been diagnosed with any of the following: Neurological Problems Seizures: No Cardiology Problems Hypercholesterolemia: Yes Congestive Heart Failure: No Hypertension: Yes Respiratory Problems Chronic Obstructive Pulmonary Disease (COPD): No Asthma: No Stomache/Intestinal Problems Diverticulitis: Yes Diverticulosis: Yes Gastroesophageal Reflux Disease: Yes Genital/Urinary Problems Renal Disease: No Prostate Cancer: Yes (pt had prostate removed) Reproductive Problems Fibroids: No Head,Eye,Nose,Throat Problems Cataracts: Yes (Bilateral, post surgery) Endocrine Problems Diabetes Mellitus Type 1: No Diabetes Mellitus Type 2: No Blood Problems Sickle Cell Disease: No Psychologic Problems Depression: No Anxiety: No Other Problems Blood Transfusions: No Anesthesia Reactions: No Organ Transplant: No MRSA: No VRSA: No Vancomycin-Resistant Enterococci: No Human Immunodeficiency Virus (HIV): No Chicken Pox: Yes Measles: Yes Mumps: Yes Clostridium Difficile: No Cancer: Yes Surgical History Thyroidectomy: No
[2025-04-16 09:34] VITALS: BP 128/76; PULSE 92; RESP 18; TEMP 36.2; O2SAT 95; BMI 28.8
== END 2025-04-16 10:13 | disposition home or self-care (01) ==
LOC: HODSRG 09:22
PROVIDERS: PCP Family Medicine; Referring Provider Family Medicine; Supervising Provider Surgery; Visit Provider Surgery
DX: K57.32 Diverticulitis of large intestine without perforation or abscess without bleeding (principal); I10 Essential (primary) hypertension
CPT/HCPCS: 99213; G0463

== ENCOUNTER 2025-04-17 17:03 | Inpatient (IN) | payer MEDICARE, OTHER, SELFPAY ==
[2025-04-17 17:13] VITALS: BP 145/79; PULSE 92; RESP 16; TEMP 37.2; O2SAT 95; BMI 28.8
--- NOTE | 2025-04-17 17:28 | EDRME_ITS ---
Rapid Medical Screening Exam [facility] Arrival date/time: 04/17/25 17:03 75-year-old male with a history of hyperlipidemia, diverticulitis, abscess in the abdomen, presents to the emergency room with a chief complaint of left lower quadrant abdominal tenderness. Patient states he had a CT scan done this morning and there appears to be another abscess in the abdomen. Patient was sent to the emergency room by Dr. Bennett the general surgeon I have greeted and performed a focused initial assessment of this patient. A comprehensive ED assessment and evaluation of the patient, analysis of all test results, and completion of the medical decision making process will be conducted by additional ED providers. Chief Complaint: Abdominal Pain Time Seen by Provider: 04/17/25 17:12 Vital signs: Vital Signs Temperature 99.0 F 04/17/25 17:13 Pulse Rate 92 04/17/25 17:13 Respiratory Rate 16 04/17/25 17:13 Blood Pressure 145/79 H 04/17/25 17:13 Pulse Oximetry (%) 95 04/17/25 17:13 Oxygen Delivery Method Room Air 04/17/25 17:13 Vital signs reviewed by provider: Yes Exam: 8 out of 10 abdominal tenderness to the left lower quadrant Clear bilateral lung sounds Clinical Impression: Abdominal abscess/diverticulitis/gastroenteritis
[2025-04-17 19:04] VITALS: BP 149/68; PULSE 91; RESP 17; TEMP 36.7; O2SAT 99
[2025-04-17 19:25] LABS: Collection Type, Urine Clean Catch; Squamous Epithelial Cell,Urine 0 /hpf (0-5)
[2025-04-17 20:03] LABS: Bilirubin,Urine Negative (Negative); Blood,Urine Trace (Negative); Clarity,Urine Clear (Clear/Hazy); Color,Urine Yellow (Lt Yel-Yel); Glucose, Urine Negative (Negative); Ketones,Urine Negative (Negative); Leukocyte Esterase,Urine Negative (Negative); Nitrite,Urine Negative (Negative); PH,Urine 6.0 (5.0-7.0); Protein,Urine Trace (Neg - Trace); RBC,Urine 4 /hpf (0-3); Urobilinogen,Urine Negative mg/dL (0.0-1.0); WBC,Urine < 1 /hpf (0-5)
[2025-04-17] MEDS: PIPER/TAZO 3.375 GM PREMIX 3.375 GM/50 ML BAG IV (20:11)
[2025-04-17 20:15] LABS: Specific Gravity,Urine 1.015 (1.001-1.035)
[2025-04-17 20:16] LABS: Basophils # (Auto) 0.1 Thou/mm3 (0.0-0.2); Basophils % (Auto) 1 % (0-2.5); Eosinophils # (Auto) 0.3 Thou/mm3 (0.0-0.5); Eosinophils % (Auto) 3 % (0-10); Hematocrit 33.6 % (41.0-53.0); Hemoglobin 10.7 g/dL (13.5-16.0); Immature Granulocytes Auto 0.04 Thou/mm3 (0.00-0.00); Lymphocytes # (Auto) 1.4 Thou/mm3 (1.0-4.8); Lymphocytes % (Auto) 17 % (10-50); Mean Corpuscular HGB Conc 31.8 g/dl (31.0-37.0); Mean Corpuscular Hemoglobin 29.1 pg (25.0-35.0); Mean Corpuscular Volume 91 fL (80-100); Monocytes # (Auto) 0.7 Thou/mm3 (0.0-0.8); Monocytes % (Auto) 9 % (0-12); Neutrophils # (Auto) 5.8 Thou/mm3 (1.8-7.7); Neutrophils % (Auto) 70 % (37-80); Nucleated Red Blood Cell # 0.00 Thou/mm3 (0.00-0.00); Nucleated Red Blood Cell % 0 /100 WBC (0); Platelet Count 374 Thou/mm3 (140-440); RDW Standard Deviation 49.4 fL (35.1-43.9); Red Blood Count 3.68 Miln/mm3 (4.50-5.90); White Blood Count 8.2 Thou/mm3 (3.8-10.6)
--- NOTE | 2025-04-17 20:38 | PD.EDADULT ---
ED General RME/HPI General Chief complaint: Abdominal Pain Stated complaint: SENT BY CLINIC FOR DIVERTICULITIS Time Seen by Provider: 04/17/25 17:12 Arrival date/time: 04/17/25 17:03 CC: Right lower quadrant abdominal pain patient was referred to by Dr. Bennett's office for diverticulitis with abdominal abscess. The patient denies any fever chills chest pain shortness of breath or difficulty breathing. Localized pain is 4-5 on a 10 scale RME / HPI RME / HPI narrative: 04/17/25 17:03 75-year-old male with a history of hyperlipidemia, diverticulitis, abscess in the abdomen, presents to the emergency room with a chief complaint of left lower quadrant abdominal tenderness. Patient states he had a CT scan done this morning and there appears to be another abscess in the abdomen. Patient was sent to the emergency room by Dr. Bennett the general surgeon I have greeted and performed a focused initial assessment of this patient. A comprehensive ED assessment and evaluation of the patient, analysis of all test results, and completion of the medical decision making process will be conducted by additional ED providers. Exam: 8 out of 10 abdominal tenderness to the left lower quadrant Clear bilateral lung sounds Impression: Abdominal abscess/diverticulitis/gastroenteritis Related Data Home Medications ?Medication ?Instructions ?Recorded ?Confirmed atorvastatin 10 mg tablet 10 mg PO QDAY 02/28/24 04/16/25 Allergies Allergy/AdvReac Type Severity Reaction Status Date / Time No Known Allergies Allergy Verified 04/17/25 17:06 Review of Systems Review of Systems Narrative Review of Systems: GEN: No fever, no chills, no weight loss EYES: No discharge, no visual changes, no pain HEENT: No ear pain, no congestion, no sore throat PULM: No shortness of breath, no cough, no congestion CV: No chest pain, no dyspnea on exertion, no palpitations GI: No nausea, no vomiting, no diarrhea, + pain, no constipation : No frequency, no urgency, no dysuria MUSC/SKEL: No joint pain, no back pain SKIN: No rash PSYCH: No hallucinations, no depression HEME/LYMPH: No easy bleeding or bruising tendencies NEURO: No weakness, no headache Past Medical History Past Medical History NEUROLOGIC: Negative Neurological Disorders or Seizures CARDIAC: Positive Hypercholesterolemia and Hypertension; Negative Cardiac Disorders or Congestive Heart Failure RESPIRATORY: Negative Chronic Obstructive Pulmonary Disease (COPD) or Asthma GASTROINTESTINAL: Positive Gastrointestinal Disorders, Diverticulitis, Diverticulosis and Gastroesophageal Reflux Disease GENITOURINARY: Positive Prostate Cancer (pt had prostate removed); Negative Genitourinary Disorders or Renal Disease REPRODUCTIVE: Negative Fibroids MUSCULOSKELETAL: Negative Musculoskeletal Disorders ENT: Positive Cataracts (Bilateral, post surgery) ENDOCRINE: Negative Endocrine Disorders, Diabetes Mellitus Type 1 or Diabetes Mellitus Type 2 HEMATOLOGIC: Negative Blood Disorders or Sickle Cell Disease PSYCHO/SOCIAL: Negative Depression or Anxiety OTHER HISTORY: Positive Chicken Pox, Measles, Mumps, Cancer and Prostate Cancer (pt had prostate removed); Negative Autoimmune Disease, Blood Transfusions, Anesthesia Reactions, Organ Transplant, MRSA, VRSA, Vancomycin-Resistant Enterococci, Human Immunodeficiency Virus (HIV) or Clostridium Difficile Family History FAMILY HISTORY: Positive Family Respiratory Disorders, Family Cardiac Disorders, Family Gastrointestinal Problems, Family Cancer and Family Surgery; Negative Family Psychiatric Problems or Family Anesthesia Reaction Surgical History SURGICAL: Positive Abdominal Surgery; Negative Cardiac Surgery, Endocrine Surgery, Thyroidectomy, Ear Surgery, Nephrectomy, Transurethral Resection, Joint Replacement or Organ Transplant Social History SMOKING STATUS: Never smoker ED Exam Narrative Physical exam: [General: In mild discomfort but not in any acute distress Head normocephalic HEENT: Within acceptable limits Neck is supple nontender Chest equal chest rise nontender to palpation Respiratory: Clear to auscultation no wheezes crackles or rubs CV: Rate rhythm is regular no murmurs rubs or clicks Abdomen is distended secondary to body habitus soft, left lower quadrant tenderness with palpation. Back: No CVA tenderness no spinous process tenderness from cervical spine thoracic and lumbar spine Skin: Intact no petechiae rash induration ulceration or crepitus Extremities: Moving all extremity against resistance cap refill less than 2 seconds neurosensory intact Neuro: Awake alert oriented x3 Glascow coma 15 no focal deficits] Course Quality Measures none Orders Category Date Time Status COVID-19 Screening Questionnaire NOW Care 04/17/25 21:55 Active Decision to Admit X1 Care 04/17/25 21:55 Active Saline [Insert IV] NOW Care 04/17/25 17:36 Active Consult to General Surgery Stat Cons 04/17/25 19:14 Ordered Blood Culture (Lab) Stat Lab 04/17/25 17:38 Received CBC Stat Lab 04/17/25 20:01 Completed CMP [Comprehensive Metabolic Panel] Stat Lab 04/17/25 20:01 Completed Lipase Stat Lab 04/17/25 20:01 Completed Procalcitonin Stat Lab 04/17/25 20:01 Completed UA [Urinalysis] Stat Lab 04/17/25 19:06 Completed Urine Culture Stat Lab 04/17/25 19:06 Received Piper/Tazo 3.375 gm Premix [Zosyn] Med 04/17/25 17:36 Discontinued 3.375 gm in 50 ml IV X1 Vital Signs Vital signs: Vital Signs Temperature 99.0 F 04/17/25 17:13 Pulse Rate 92 04/17/25 17:13 Respiratory Rate 16 04/17/25 17:13 Blood Pressure 145/79 H 04/17/25 17:13 Pulse Oximetry (%) 95 04/17/25 17:13 Oxygen Delivery Method Room Air 04/17/25 17:13 Discharge Plan Plan Patient Disposition: Other Care w/in Hosp ([facility]) Patient condition on transfer: Stable Problem List Clinical Impression: Colonic diverticular abscess, Diverticulitis, Fistula PA/TELEVISION SCRIPT WRITER Supervising Physician PA/TELEVISION SCRIPT WRITER Supervising Physician: Emanuel Ornelas ENP [facility] Clinical Information Provided by: patient Medical Records reviewed [facility] Meds/Rx considered, not ordered None Labs/Rad/Tests considered, not ordered None Chronic Illness/Social Conditions Explain: Diverticulitis EKG EKG not done Labs Labs: interpreted by tx Lab(s) Interpretation(s): CBC shows no acute leukocytosis H&H of 10.7 and 33.6 with no thrombocytopenia Urine shows no acute urinary tract infection. Imaging Imaging interpretation: interpreted by tx Imaging Interpretation(s): CT from 11 AM this morning shows significant acute sigmoid diverticulitis enlarging. Diverticular abscess and probable fistula to the bladder. Medication Administration(s) Medication Administration History Acetaminophen (Acetaminophen 325 Mg Tablet) 650 mg PO Q6H PRN PRN Reason: Fever >100.3 Stop: 05/17/25 21:56 Acetaminophen (Acetaminophen 325 Mg Tablet) 650 mg PO Q6H PRN PRN Reason: PAIN SCALE 1-3 (mild Stop: 05/17/25 21:56 Atorvastatin Calcium (Atorvastatin Calcium 10 Mg Tablet) 10 mg PO HS MIN Stop: 05/18/25 20:59 Heparin Sodium (Porcine) (Heparin Sod Inj 5000 Unit/Ml Vial) 5,000 unit SC Q8HR MIN Stop: 05/01/25 21:59 Ciprofloxacin/Dextrose (Cipro Ivpb) 400 mg in 200 mls @ 200 mls/hr IV Q12HR MIN Stop: 04/24/25 22:00 Metronidazole (Flagyl 500 Mg Iv) 500 mg in 100 mls @ 200 mls/hr IV Q8HR MIN Stop: 04/24/25 22:01 Ciprofloxacin/Dextrose (Cipro Ivpb) 400 mg in 200 mls @ 200 mls/hr IV X1 ONE Stop: 04/17/25 23:14 Metronidazole (Flagyl 500 Mg Iv) 500 mg in 100 mls @ 200 mls/hr IV X1 ONE Stop: 04/17/25 22:44 Morphine Sulfate (Morphine Sulf Inj 4 Mg/Ml Vial) 2 mg IVP Q6HR PRN PRN Reason: pain 4-7 Stop: 04/22/25 21:56 Ondansetron HCl (Ondansetron Inj 2 Mg/Ml Inj 2 Ml) 4 mg IVP Q6H PRN; Protocol PRN Reason: NAUSEA OR VOMITING Stop: 05/17/25 21:56 Sennosides (Senna/Docusate Sod 1 Tab Tablet) 1 tab PO QDAY [facility]; Protocol Stop: 05/18/25 08:59 Discontinued Medications Piperacillin/Tazobactam/Dextrose (Zosyn) 3.375 gm in 50 mls @ 100 mls/hr IV X1 ONE; Protocol Stop: 04/17/25 18:05 Last Infusion: 04/17/25 20:41 Dose: Infused Documented By: Admin: 04/17/25 20:11 Dose: 100 mls/hr Documented By: EL
[2025-04-17 20:43] LABS: Alanine Aminotransferase 14 U/L (10-49); Albumin, Serum 3.7 gm/dL (3.4-4.8); Albumin/Globulin Ratio 1.2 (1.2-2.2); Alkaline Phosphatase 68 U/L (46-116); Anion Gap 8 (7-16); Aspartate Amino Transferase < 10 U/L (0-34); BUN/Creatinine Ratio 14 Ratio (12-20); Bilirubin,Total 0.3 mg/dL (0.3-1.2); Blood Urea Nitrogen 14 mg/dL (9-23); Calcium 8.5 mg/dL (8.3-10.6); Calcium (Corrected) 8.7 mg/dL (8.5-10.1); Carbon Dioxide 26.7 mMol/L (20.0-31.0); Chloride 105 mMol/L (98-107); Creatinine (Component) 1.0 mg/dL (0.6-1.3); Estimated Creatinine Clearance 67.1 mL/min (>60); Globulin 3.0 gm/dL (2.3-3.5); Glucose 83 mg/dL (74-106); Lipase 39 U/L (12-53); Osmolality,Calculated 278 (275-295); Potassium 3.6 mMol/L (3.4-5.1); Procalcitonin 0.10 ng/ml (0.0-0.49); Sodium 140 mMol/L (136-145); Total Protein 6.7 gm/dL (5.7-8.2); eGFR > 60 See Note
[2025-04-17 21:00] VITALS: BP 149/68; PULSE 75; RESP 20; TEMP 36.7; O2SAT 94
--- NOTE | 2025-04-17 22:04 | PD.RESHP ---
Documentation for date of: 04/17/25 HPI History of Present Illness History of present illness: Mr. 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 Patient was recently seen outpatient by Dr. Bennett who recommended getting an outpatient CT A/P given patient's increased LLQ pain with activity that he first noticed last Wednesday. Patient has recurrent diverticulitis and was planning for a sigmoidectomy in April 2025. He has previously had a drain placed for peridiverticular abscess in the same location. At bedside patient is hemodynamically stable and not reporting any abdominal pain. He only notices the pain when he bends over or lifts heavy objects, but the pain does feel like previous episodes of diverticulitis. He denies fevers, chills, nausea, vomiting, constipation, diarrhea, hematochezia, melena. ED course: Afebrile, VSS. Labs significant for Hgb 10.7, HCT 33.6. Lipase, Pro-Ramos, UA unremarkable. CT abdomen/pelvis showed acute sigmoid diverticulitis, enlarging peridiverticular abscess, colovesicular fistula. Given Zosyn 3.375 g IV x 1 in ED. PMHx: HLD, recurrent diverticulitis, diverticular abscess Allergies: NKDA Home meds: Atorvastatin 10 mg nightly, stool softeners daily SgHx: Tonsillectomy, drain placed for diverticular abscess SHx: Denies smoking, recreational drug use. Occasional EtOH use. FHx: None reported Review of Systems Review of Systems Narrative Review of Systems: 14 point ROS negative other than HPI Exam Vital Signs Temp Pulse Resp BP Pulse Ox O2 Del Method 98.0 F 91 17 149/68 H 99 Room Air 04/17/25 19:04 04/17/25 19:04 04/17/25 19:04 04/17/25 19:04 04/17/25 19:04 04/17/25 19:04 Narrative Exam General: No acute distress, well nourished, reading lead recreation assistant novel on Maximo in bed Eye: PERRL, EOMI, normal conjunctiva, no scleral icterus HENT: Normocephalic, atraumatic, normal hearing, moist oral mucosa Neck: Supple, non-tender, no JVD, no lymphadenopathy Lungs: Clear to auscultation bilaterally, non-labored respirations, symmetric chest rise, no use of accessory muscles Heart: Normal S1 and S2, no S3 or S4 appreciated. Normal rate and regular rhythm, no murmurs, rubs gallops, or edema. Peripheral pulses intact bilaterally, capillary refill brisk distally Abdomen: Soft, non-tender, non-distended, normal bowel sounds. Mild suprapubic TTP. no guarding or rebound tenderness. Musculoskeletal: Normal range of motion and strength, no tenderness or swelling Skin: Skin is warm, dry, no rashes or lesions. Neurologic: Alert, awake and oriented x3. CN II-XII grossly intact. No focal neuro deficits. No signs of meningeal irritation noted. Psychiatric: Cooperative, appropriate mood and affect Results: Labs 04/18/25 04:30 04/18/25 04:30 Labs: Short CBC 04/17/25 Range/Units 20:01 WBC 8.2 (3.8-10.6) Thou/mm3 Hgb 10.7 L (13.5-16.0) g/dL Hct 33.6 L (41.0-53.0) % Plt Count 374 (140-440) Thou/mm3 BMP 04/17/25 20:01 Sodium 140 Potassium 3.6 Chloride 105 Carbon Dioxide 26.7 BUN 14 Creatinine 1.0 Glucose 83 Calcium 8.5 Liver Function 04/17/25 Range/Units 20:01 Total Bilirubin 0.3 (0.3-1.2) mg/dL AST < 10 (0-34) U/L ALT 14 (10-49) U/L Alkaline Phosphatase 68 (46-116) U/L Albumin 3.7 (3.4-4.8) gm/dL Urine 04/17/25 Range/Units 19:06 Urine Color Yellow (Lt Yel-Yel) Urine Clarity Clear (Clear/Hazy) Urine pH 6.0 (5.0-7.0) Ur Specific [place] 1.015 (1.001-1.035) Urine Protein Trace (Neg - Trace) Urine Glucose (UA) Negative (Negative) Quality Measures Quality Measures VTE prophylaxis Advance care planning discussed with:: patient Medications Home Medications and Allergies Home Medications ?Medication ?Instructions ?Recorded ?Confirmed ?Type atorvastatin 10 mg tablet 10 mg PO QDAY 02/28/24 04/17/25 History ferrous sulfate 325 mg (65 mg 325 mg PO QDAY 04/17/25 04/17/25 History iron) tablet nystatin 100,000 unit/mL oral 4 ml PO Q6H 04/17/25 04/17/25 History suspension omeprazole 40 mg capsule,delayed 40 mg PO .qod 04/17/25 04/17/25 History release Allergies Allergy/AdvReac Type Severity Reaction Status Date / Time No Known Allergies Allergy Verified 04/17/25 17:06 Visit Medications Acetaminophen (Acetaminophen 325 Mg Tablet) 650 mg PO Q6H PRN PRN Reason: Fever >100.3 Stop: 05/17/25 21:56 Discontinued Medications Piperacillin/Tazobactam/Dextrose (Zosyn) 3.375 gm in 50 mls @ 100 mls/hr IV X1 ONE; Protocol Stop: 04/17/25 18:05 Last Infusion: 04/17/25 20:41 Dose: Infused Assessment & Plan Plan Mr. Wallis is a 75 y/o male with PMH HLD and recurrent diverticulitis who presented to the ED on 04/17 with acute sigmoid diverticulitis, peridiverticular abscess, colovesicular fistula seen on outpatient CT A/P. Admitted for diverticular abscess and colovesicular fistula requiring possible surgery vs IR drainage. #Recurrent sigmoid diverticulitis #Diverticular abscess #Colovesicular fistula Patient first started noticing LLQ and suprapubic pain with activity x 3 days, similar to previous episodes of diverticulitis Following with Dr. Bennett, was planning for elective sigmoidectomy April 2025. Takes stool softeners daily Findings seen on CT A/P outpatient, sent to ED by Dr. Aden for further surgical management patient is hemodynamically stable, not Patient is hemodynamically stable, afebrile, no leukocytosis. Given Zosyn IV in ED Plan: - Consulted Dr. Aden, plan for surgery vs IR drainage in the a.m. - Regular diet now, n.p.o. after midnight - Pain management with Tylenol p.o., morphine 2 mg IV q6h PRN - Ciprofloxacin 400 mg IV twice daily, metronidazole 500 mg IV q8h - Doc/senna daily scheduled #Hyperlipidemia Lipid panel in February unremarkable, low HDL 34 Plan: -Atorvastatin 10 mg p.o. daily (home med) Checklist Dispo: Admit to [facility] for surgical management of peridiverticular abscess Diet: Regular, n.p.o. after midnight Bowel Reg: Doc/senna daily scheduled VTE ppx: Heparin subcu GI ppx: n/a Pain mgmt: Tylenol p.o., morphine 2 mg IV q6h PRN Code status: Full Plan discussed with Dr. Funes and Dr. Ronaldo Butts MD PGY1 Attending Provider Attestation/Addendum After examination of the patient and review of the clinical data I feel that this patient needs admission to the hospital for further treatment/evaluation. Plan of care discussed with patient and is in agreement. I Hudson Higgins MD, attest that I was physically present for fuller portions of evaluation, and examined patient, labs and imagings and plan of care were discussed with IM residents team, and I agree with the findings and plans documented above.
[2025-04-17] MEDS: metroNIDAZOLE/NS 500 MG IVPB 500 MG/100 ML BAG 200 MG IV (23:32)
[2025-04-17 23:41] VITALS: BMI 27.7
[2025-04-18] VITALS: BP 124/67; PULSE 83; RESP 18; TEMP 36.4; O2SAT 97
[2025-04-18] MEDS: CIPROFLOXACIN/D5w 400 MG IVPB 400 MG/200 ML BAG 200 MG IV ×2 (00:11→13:02)
[2025-04-18 04:00] VITALS: BP 91/61; PULSE 69; RESP 17; TEMP 37.2; O2SAT 98
[2025-04-18 05:39] LABS: Basophils # (Auto) 0.1 Thou/mm3 (0.0-0.2); Basophils % (Auto) 1 % (0-2.5); Eosinophils # (Auto) 0.3 Thou/mm3 (0.0-0.5); Eosinophils % (Auto) 4 % (0-10); Hematocrit 35.9 % (41.0-53.0); Hemoglobin 11.5 g/dL (13.5-16.0); Immature Granulocytes Auto 0.02 Thou/mm3 (0.00-0.00); Lymphocytes # (Auto) 1.5 Thou/mm3 (1.0-4.8); Lymphocytes % (Auto) 19 % (10-50); Mean Corpuscular HGB Conc 32.0 g/dl (31.0-37.0); Mean Corpuscular Hemoglobin 29.5 pg (25.0-35.0); Mean Corpuscular Volume 92 fL (80-100); Monocytes # (Auto) 0.8 Thou/mm3 (0.0-0.8); Monocytes % (Auto) 10 % (0-12); Neutrophils # (Auto) 5.2 Thou/mm3 (1.8-7.7); Neutrophils % (Auto) 66 % (37-80); Nucleated Red Blood Cell # 0.00 Thou/mm3 (0.00-0.00); Nucleated Red Blood Cell % 0 /100 WBC (0); Platelet Count 344 Thou/mm3 (140-440); RDW Standard Deviation 50.7 fL (35.1-43.9); Red Blood Count 3.90 Miln/mm3 (4.50-5.90); White Blood Count 7.9 Thou/mm3 (3.8-10.6)
[2025-04-18] MEDS: metroNIDAZOLE/NS 500 MG IVPB 500 MG/100 ML BAG 200 MG IV ×2 (06:10→14:34)
[2025-04-18 06:23] LABS: Anion Gap 12 (7-16); BUN/Creatinine Ratio 10 Ratio (12-20); Blood Urea Nitrogen 9 mg/dL (9-23); Calcium 8.3 mg/dL (8.3-10.6); Carbon Dioxide 24.7 mMol/L (20.0-31.0); Chloride 105 mMol/L (98-107); Creatinine (Component) 0.9 mg/dL (0.6-1.3); Estimated Creatinine Clearance 77.9 mL/min (>60); Glucose 104 mg/dL (74-106); Magnesium 2.1 mg/dL (1.6-2.6); Osmolality,Calculated 281 (275-295); Phosphorous 3.7 mg/dL (2.4-5.1); Potassium 3.8 mMol/L (3.4-5.1); Sodium 142 mMol/L (136-145); eGFR > 60 See Note
[2025-04-18 08:00] VITALS: BP 112/58; PULSE 72; RESP 16; TEMP 36.9; O2SAT 96
--- NOTE | 2025-04-18 10:04 | PC.SS ---
Follow up note: On IV antibiotic. Pending Dr. Aden's recommendations.
--- NOTE | 2025-04-18 10:28 | PD.RESPRO ---
Documentation for date of: 04/18/25 Exam Vital Signs Temp Pulse Resp BP Pulse Ox O2 Del Method 98.5 F 72 16 112/58 L 96 Room Air 04/18/25 08:00 04/18/25 08:00 04/18/25 08:00 04/18/25 08:00 04/18/25 08:00 04/18/25 08:00 Objective Labs 04/18/25 04:30 04/18/25 04:30 Labs: Laboratory Results - last 24 hr 04/17/25 04/17/25 04/18/25 19:06 20:01 04:30 WBC 8.2 7.9 RBC 3.68 L 3.90 L Hgb 10.7 L 11.5 L Hct 33.6 L 35.9 L MCV 91 92 MCH 29.1 29.5 MCHC 31.8 32.0 RDW Std Deviation 49.4 H 50.7 H Plt Count 374 344 D Neut % (Auto) 70 66 Lymph % (Auto) 17 19 [place] % (Auto) 9 10 Eos % (Auto) 3 4 Baso % (Auto) 1 1 Neut # (Auto) 5.8 5.2 Lymph # (Auto) 1.4 1.5 [place]herty # (Auto) 0.7 0.8 Eos # (Auto) 0.3 0.3 Baso # (Auto) 0.1 0.1 Immature Gran # (Auto) 0.04 H 0.02 H Absolute Nucleated RBC 0.00 0.00 Immature Gran % 1 H 0 Nucleated RBC % 0 0 PT Cancelled INR Cancelled APTT Cancelled Sodium 140 142 Potassium 3.6 3.8 Chloride 105 105 Carbon Dioxide 26.7 24.7 Anion Gap 8 12 BUN 14 9 Creatinine 1.0 0.9 Estim Creat Clear Calc 67.1 77.9 eGFR > 60 > 60 BUN/Creatinine Ratio 14 10 L Glucose 83 104 Calculated Osmolality 278 281 Calcium 8.5 8.3 Corrected Calcium 8.7 Phosphorus 3.7 Magnesium 2.1 Total Bilirubin 0.3 AST < 10 ALT 14 Alkaline Phosphatase 68 Total Protein 6.7 Albumin 3.7 Globulin 3.0 Albumin/Globulin Ratio 1.2 Lipase 39 Procalcitonin 0.10 Ur Collection Type Clean Catch Urine Color Yellow Urine Clarity Clear Urine pH 6.0 Ur Specific [place] 1.015 Urine Protein Trace Urine Glucose (UA) Negative Urine Ketones Negative Urine Blood Trace Urine Nitrite Negative Urine Bilirubin Negative Urine Urobilinogen (Auto) Negative Ur Leukocyte Esterase Negative Urine RBC 4 H Urine WBC < 1 Ur Squamous Epith Cells 0 Urine Bacteria None Quality Measures Quality Measures none Assessment & Plan Assessment Current Active Medications: Generic Name Dose Route Start Last Admin Trade Name Freq PRN Reason Stop Dose Admin Acetaminophen 650 mg 04/17/25 21:57 Acetaminophen 325 Mg Tablet PO 05/17/25 21:56 Q6H PRN Fever >100.3 Acetaminophen 650 mg 04/17/25 21:57 Acetaminophen 325 Mg Tablet PO 05/17/25 21:56 Q6H PRN PAIN SCALE 1-3 (mild Atorvastatin Calcium 10 mg 04/18/25 21:00 Atorvastatin Calcium 10 Mg Tablet PO 05/18/25 20:59 HS MIN Heparin Sodium (Porcine) 5,000 unit 04/17/25 22:00 04/18/25 06:03 Heparin Sod Inj 5000 Unit/Ml Vial SC 05/01/25 21:59 Not Given Q8HR MIN Ciprofloxacin/Dextrose 400 mg in 200 mls @ 200 mls/hr 04/18/25 12:00 Cipro Ivpb IV 04/25/25 11:59 Q12HR MIN Metronidazole 500 mg in 100 mls @ 200 mls/hr 04/18/25 07:00 04/18/25 06:10 Flagyl 500 Mg Iv IV 04/25/25 06:59 200 mls/hr Q8HR MIN Administration Morphine Sulfate 2 mg 04/17/25 21:57 Morphine Sulf Inj 4 Mg/Ml Vial IVP 04/22/25 21:56 Q6HR PRN pain 4-7 Ondansetron HCl 4 mg 04/17/25 21:57 Ondansetron Inj 2 Mg/Ml Inj 2 Ml IVP 05/17/25 21:56 Q6H PRN NAUSEA OR VOMITING Protocol Sennosides 1 tab 04/18/25 09:00 04/18/25 10:23 Senna/Docusate Sod 1 Tab Tablet PO 05/18/25 08:59 Not Given QDAY MIN Protocol
[2025-04-18 11:41] VITALS: BP 113/61; PULSE 87; RESP 16; TEMP 36.9; O2SAT 95
--- NOTE | 2025-04-18 14:47 | PD.SURCONS ---
HPI Consult details History of present illness: 75M with HLD, recurrent diverticulitis last hospitalized 12/2024 who is scheduled for elective sigmoidectomy 05/02/25 but developed mild fever and urinary frequency for which I ordered a CT showing signs of colovesicular fistula as well as a recurrent diverticular abscess. Pt noted a very mild LLQ discomfort but no outright pain and no fecaluria or pneumaturia. Given CT findings I recommended pt present to ER for admission and possible percutaneous drainage Review of Systems Review of Systems ROS Unobtainable: All systems reviewed & no additional complaints except as documented Meds Home Medications and Allergies Home Medications ?Medication ?Instructions ?Recorded ?Confirmed ?Type atorvastatin 10 mg tablet 10 mg PO QDAY 02/28/24 04/17/25 History ferrous sulfate 325 mg (65 mg 325 mg PO QDAY 04/17/25 04/17/25 History iron) tablet nystatin 100,000 unit/mL oral 4 ml PO Q6H 04/17/25 04/17/25 History suspension omeprazole 40 mg capsule,delayed 40 mg PO .qod 04/17/25 04/17/25 History release Allergies Allergy/AdvReac Type Severity Reaction Status Date / Time No Known Allergies Allergy Verified 04/17/25 17:06 Exam Vital Signs Temp Pulse Resp BP Pulse Ox O2 Del Method 98.4 F 87 16 113/61 95 Room Air 04/18/25 11:41 04/18/25 11:41 04/18/25 11:41 04/18/25 11:41 04/18/25 11:41 04/18/25 11:41 Constitutional Constitutional: no acute distress Routine Respiratory Exam Respiratory: Present no resp distress Routine Abdominal Exam Abdominal: Present soft; Absent tenderness or distended Results Results: Laboratory Laboratory results: results reviewed Results: Imaging CT scan - abdomen: report reviewed and image reviewed Assessment & Plan Plan 75M with HLD, recurrent diverticulitis last hospitalized 12/2024 who is scheduled for elective sigmoidectomy 05/02/25 but developed mild fever and urinary frequency for which I ordered a CT showing signs of colovesicular fistula as well as a recurrent diverticular abscess. Clinically pt is doing very well with minimal pain and no more fever. I spoke to our interventional radiologist regarding the possibility of percutaneous drain placement however he advises against it as the abscess is very thick-walled and drainage is not likely to improve his clinical status. Pt and I have extensively discussed the risks of sigmoidectomy, and he is very understanding that in the setting of active inflammation these risks are elevated, including but not limited to the risk of left ureteral injury as it tends to be in close proximity to the sigmoid colon. Ultimately pt and I agreed to proceed with surgery as soon as it is possible to have preoperative cystoscopy with left ureteral stent placement, which will be Wed May 02 the day it was already scheduled. Pt is agreeable to waiting until this time but I did let him know that if he has worsening pain, fever, nausea/vomiting or any other acute concerns he should immediately return. DC with cipro/flagyl Golytely and neomycin/erythromycin abx sent to be used for preoperative bowel prep
--- NOTE | 2025-04-18 15:04 | PC.SS ---
SS met with patient regarding his d/c plan. Pt is alert/oriented. Pt was admitted for Peridiverticular Abcess and Colovesicular Fistula. Pt confirmed demographic and contact information is correct on facesheet. Pt resides with. Pt ambulates independently without assistance or DME. Pt is ok with all ADLs. Patient?s pharmacy of choice is [facility] on [address]. Pt named his son, Dae Wallis medical decision maker if he is unable. SS provided verbal choices for d/c to home or SNF. Patient?s choice is to return home upon d/c. Pt states he is not diabetic and is not on dialysis. Pt states he followed up with PCP 1 week ago. D/C plan: Return home Next of Kin: Dae Wallis, son, phone# [phone] PCP: Dr. Ebony Basurto Address: Correct on facesheet
--- NOTE | 2025-04-18 15:09 | PD.SURDS ---
Planned Discharge Date 04/18/25 DS: Providers Provider Date of admission: 04/17/25 21:57 Primary care physician: Ebony Basurto MD Admitting Provider: Hudson Higgins MD Attending Provider on Admission: Michele Portillo MD Consults: 04/17/25 19:14 Consult to General Surgery Stat Comment: Consulting Provider: Anisha Aden Attending Provider on DC: Anisha Aden MD Discharging Provider: Anisha Aden MD Diagnosis Discharge Diagnosis (1) Colonic diverticular abscess: Status: Acute Problem List Completed Was Problem List Reviewed/Reconciled?: Yes Hospital Course Brief History: 75M with HLD, recurrent diverticulitis last hospitalized 12/2024 who is scheduled for elective sigmoidectomy 05/02/25 but developed mild fever and urinary frequency for which I ordered a CT showing signs of colovesicular fistula as well as a recurrent diverticular abscess. Pt noted a very mild LLQ discomfort but no outright pain and no fecaluria or pneumaturia. Given CT findings I recommended pt present to ER for admission and possible percutaneous drainage Exam Vital Signs Temp Pulse Resp BP Pulse Ox O2 Del Method 98.4 F 87 16 113/61 95 Room Air 04/18/25 11:41 04/18/25 11:41 04/18/25 11:41 04/18/25 11:41 04/18/25 11:41 04/18/25 11:41 Discharge Plan Plan Patient Disposition: HOME (Self Care) Patient condition on transfer: Stable Prescriptions/Referrals Prescriptions/Med Rec: New ciprofloxacin HCl 500 mg tablet 500 mg PO Q12H Qty: 30 0RF erythromycin 500 mg tablet 500 mg PO TID Qty: 6 0RF Rx Instructions: Take 2 tablets (1000mg) at 2pm, 3pm and 10pm the day before surgery (May 01) metronidazole 500 mg tablet 500 mg PO Q12H Qty: 30 0RF neomycin 500 mg tablet 500 mg PO TID Qty: 6 0RF Rx Instructions: Take 1000mg (2 tablets) at 2pm, 3pm and 10pm on 05/01 (the day before surgery) peg 3350-electrolytes [Golytely] 236-22.74-6.74 -5.86 gram recon soln 240 ml PO Q10M Qty: 4000 0RF Rx Instructions: Take with clear liquids (no solid food) on May 01 to prep for surgery No Action nystatin 100,000 unit/mL suspension 4 ml PO Q6H Patient Comments: TAKE 4 ML BY MOUTH/THROAT FOUR TIMES A DAY omeprazole 40 mg capsule,delayed release(DR/EC) 40 mg PO .qod ferrous sulfate 325 mg (65 mg iron) tablet 325 mg PO QDAY Patient Comments: TAKE 1 TABLET BY MOUTH EVERY DAY atorvastatin 10 mg tablet 10 mg PO QDAY Patient Comments: TAKE 1 TABLET BY MOUTH EVERY DAY Referrals: Ebony Basurto MD [Primary Care Provider, Family Practice] Anisha Aden MD [Physician, General Surgery] Patient/Caregiver Discharge Instructions Other Discharge Activity Instructions:: Continue ciprofloxacin and metronidazole until surgery On May 01, please only drink clear liquids (no solid food) and take golytely prep to cleanse your colon Also on May 01 please take two tablets each of neomycin and erythromycin (1000mg of each medication) at 2pm, 3pm and 10pm with the goal of minimizing the risk of postoperative infection In the meantime if you develop worsening pain, nausea/vomiting, fever or any other concern please call the office at [phone] if during business hours (M-F 8-12pm, 1-4pm) or if urgent please seek care in ER Education Materials: Discharge Instructions for ... Print Language: Hebrew Stand Alone Forms: Bernarda Award Info., Patient Portal Info Letter Discharge Order Discharge Orders: Discharge (Routine); Ordered 04/18/25 Ordered By: Anisha Aden Results Results: Laboratory Laboratory results: results reviewed Results: Imaging CT scan - abdomen: report reviewed and image reviewed
[2025-04-18 16:00] VITALS: BP 129/68; PULSE 79; RESP 15; TEMP 36.6; O2SAT 98
--- NOTE | 2025-04-18 17:10 | ESDS_ITS ---
Planned Discharge Date 04/18/25 DS: Providers Provider Date of admission: 04/17/25 21:57 Primary care physician: Ebony Basurto MD Admitting Provider: Hudson Higgins MD Attending Provider on Admission: Michele Portillo MD Consults: 04/17/25 19:14 Consult to General Surgery Stat Comment: Consulting Provider: Anisha Aden Attending Provider on DC: Michele Portillo MD Discharging Provider: Michele Portillo MD DS: Diagnosis Problem List Completed Was Problem List Reviewed/Reconciled?: Yes Hospital Course Hospital Course Hospital course: A 75-year-old male with a history of hyperlipidemia and recurrent diverticulitis presented to the ED on 04/17 with acute sigmoid diverticulitis, a diverticular abscess, and a colovesicular fistula, as seen on CT. The patient was recently seen by Dr. Aden in the outpatient setting, who recommended an outpatient CT abdomen/pelvis due to increased LLQ pain with activity that began the previous 04/15. The patient has a history of recurrent diverticulitis and was scheduled for a sigmoidectomy in April 2025. He has previously required a drain for a peridiverticular abscess in the same area. ED course: The patient presented afebrile with vital signs stable. Labs showed Hgb 10.7 and HCT 33.6, with lipase, procalcitonin, and urinalysis all unremarkable. CT abdomen/pelvis revealed acute sigmoid diverticulitis with an enlarging peridiverticular abscess and a colovesicular fistula. The patient was administered a one-time dose of Zosyn 3.375 g IV in the ED for broad-spectrum coverage. Hospital course: Patient had no abdominal pain. Was assessed by IR for possible percutaneous drainage, however IR advises against it as the abscess is very thick-walled and drainage is not likely to improve his clinical status. Instead he will undergo planned sigmoidectomy by Dr. Aden outpatient on May 01. Discharge instructions: Continue taking ciprofloxacin and metronidazole until surgery. On May 01, follow these instructions: * Clear liquids only (no solid food). * Take GoLYTELY as directed to cleanse your colon. * Take two tablets each of neomycin (1000 mg) and erythromycin (1000 mg) at 2:00 PM, 3:00 PM, and 10:00 PM. If you experience worsening pain, nausea/vomiting, fever, or any other concerns: * Call the office at [phone] during business hours (M-F, 8:00 AM - 12:00 PM, 1:00 PM - 4:00 PM). * If urgent, seek care in the ER. Admission diagnoses: #Recurrent sigmoid diverticulitis #Diverticular abscess #Colovesicular fistula #Hyperlipidemia Case discussed with my attending Dr. Portillo, and senior resident, Dr. Isha Fuentes MD PGY-1 Status at Discharge Overall status at discharge: patient is back to baseline Time Spent with Patient Time attestation: Total time spent providing and/or coordinating discharge services: Time spent: Greater than 30 minutes Exam Vital Signs Temp Pulse Resp BP Pulse Ox O2 Del Method 97.9 F 79 15 129/68 98 Room Air 04/18/25 16:00 04/18/25 16:00 04/18/25 16:00 04/18/25 16:00 04/18/25 16:00 04/18/25 16:00 Narrative Exam General: No acute distress, well nourished, reading residential manager novel on Maximo in bed Eye: PERRL, EOMI, normal conjunctiva, no scleral icterus HENT: Normocephalic, atraumatic, normal hearing, moist oral mucosa Neck: Supple, non-tender, no JVD, no lymphadenopathy Lungs: Clear to auscultation bilaterally, non-labored respirations, symmetric chest rise, no use of accessory muscles Heart: Normal S1 and S2, no S3 or S4 appreciated. Normal rate and regular rhythm, no murmurs, rubs gallops, or edema. Peripheral pulses intact bilaterally, capillary refill brisk distally Abdomen: Soft, non-tender, non-distended, normal bowel sounds. Mild suprapubic TTP. no guarding or rebound tenderness. Musculoskeletal: Normal range of motion and strength, no tenderness or swelling Skin: Skin is warm, dry, no rashes or lesions. Neurologic: Alert, awake and oriented x3. CN II-XII grossly intact. No focal neuro deficits. No signs of meningeal irritation noted. Psychiatric: Cooperative, appropriate mood and affect Discharge Plan Plan Patient Disposition: HOME (Self Care) Prescriptions/Referrals Prescriptions/Med Rec: New ciprofloxacin HCl 500 mg tablet 500 mg PO Q12H Qty: 30 0RF erythromycin 500 mg tablet 500 mg PO TID Qty: 6 0RF Rx Instructions: Take 2 tablets (1000mg) at 2pm, 3pm and 10pm the day before surgery (May 01) metronidazole 500 mg tablet 500 mg PO Q12H Qty: 30 0RF neomycin 500 mg tablet 500 mg PO TID Qty: 6 0RF Rx Instructions: Take 1000mg (2 tablets) at 2pm, 3pm and 10pm on 05/01 (the day before surgery) peg 3350-electrolytes [Golytely] 236-22.74-6.74 -5.86 gram recon soln 240 ml PO Q10M Qty: 4000 0RF Rx Instructions: Take with clear liquids (no solid food) on May 01 to prep for surgery No Action nystatin 100,000 unit/mL suspension 4 ml PO Q6H Patient Comments: TAKE 4 ML BY MOUTH/THROAT FOUR TIMES A DAY omeprazole 40 mg capsule,delayed release(DR/EC) 40 mg PO .qod ferrous sulfate 325 mg (65 mg iron) tablet 325 mg PO QDAY Patient Comments: TAKE 1 TABLET BY MOUTH EVERY DAY atorvastatin 10 mg tablet 10 mg PO QDAY Patient Comments: TAKE 1 TABLET BY MOUTH EVERY DAY Referrals: Anisha Aden MD [Physician, General Surgery] Ebony Basurto MD [Primary Care Provider, Family Practice] Patient/Caregiver Discharge Instructions Education Materials: Discharge Instructions for ... Print Language: Georgian Stand Alone Forms: Bernarda Award Info., Patient Portal Info Letter Discharge Order Discharge Orders: Discharge (Routine); Ordered 04/18/25 Ordered By: Anisha Aden Quality Discharge Quality Measures VTE prophylaxis MD Attestestation MD Attestation I have examined the patient, reviewed labs and imaging findings, discussed the case with the resident(s), and reviewed entered orders. I agree with the plan of care as outlined in this note. Time Spent: [address] Lindsey MD
== END 2025-04-18 16:27 | disposition home or self-care (01) | DRG 392 ==
LOC: SERX 21:18 → SERHOLD 04-18 06:05 → S3SX 04-18 06:05
PROVIDERS: Nurse Practitioner Family; Admitting Provider Student in an Organized Health Care Education/Training Program; Emergency Provider Emergency Medicine; PCP Family Medicine; Visit Provider Student in an Organized Health Care Education/Training Program
DX: K57.20 Diverticulitis of large intestine with perforation and abscess without bleeding (principal); N32.1 Vesicointestinal fistula; E78.5 Hyperlipidemia, unspecified; Z79.899 Other long term (current) drug therapy
CPT/HCPCS: 36415; 80048; 80053; 81001; 83690; 83735; 84100; 84145; 85025; 85610; 85730; 87040; 87086; 96365; 99283; J0744; J2543; J3490; J1836

== ENCOUNTER → 2025-04-17 | Outpatient (CLI) | payer MEDICARE, OTHER, SELFPAY ==
--- NOTE | 2025-04-17 11:39 | XR_ITS ---
Examination: CT abdomen with intravenous contrast CT pelvis with intravenous contrast 2-D coronal reconstructions 2-D sagittal reconstructions Date and time: April 17, 2025, 12:50 p.m., comparison January 16, 2025 INDICATIONS: Onset generalized abdominal pain today, history diverticulitis and anterior pelvic abscess on CT study January 16, 2025 CTDI: vol (mGy) 8.87 DLP: (mGycm) 546 Technique: Multiple axial sections of the abdomen and pelvis have been obtained. 64 slice high-resolution scanner used. 3 mm axial sections have been obtained, post intravenous injection 60 cc [id number] 2-D sagittal, coronal reconstructions obtained. Low dose protocols were performed. One or more of the following dose reduction techniques were used; automated exposure control, adjustment of the mA and/or KV according to patient size, use of iterative reconstruction technique. Findings: Bibasilar pulmonary fibrosis Distal esophageal wall is thickened and mildly No liver or splenic lesion Suspicious for tiny gallstones or sludge No pancreatic or adrenal mass No renal or ureteral calculi, no hydronephrosis No pericecal inflammatory change Colonic diverticulosis, acute sigmoid diverticulitis The same anterior pelvic abscess is depicted,, transverse dimension now measures 5.0 cm compared to 4.3 cm on January 16, 2025 The abscess appears to be contiguous with the urinary bladder, likely a fistula with marked wall thickening of the urinary bladder IMPRESSION: Significant acute sigmoid diverticulitis Enlarging peridiverticular abscess 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
== END | disposition home or self-care (01) ==
PROVIDERS: PCP Family Medicine; Referring Provider Surgery; Visit Provider Surgery
DX: K57.32 Diverticulitis of large intestine without perforation or abscess without bleeding (principal); L02.818 Cutaneous abscess of other sites
CPT/HCPCS: 74177; A4649; Q9967

== ENCOUNTER 2025-05-02 15:32 | Inpatient (IN) | payer MEDICARE, OTHER, SELFPAY ==
--- NOTE | 2025-04-27 06:55 | EKG_ITS ---
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
[2025-04-27 09:31] VITALS: BMI 29.0
[2025-04-27 10:42] LABS: Basophils # (Auto) 0.1 Thou/mm3 (0.0-0.2); Basophils % (Auto) 1 % (0-2.5); Eosinophils # (Auto) 0.2 Thou/mm3 (0.0-0.5); Eosinophils % (Auto) 2 % (0-10); Hematocrit 39.2 % (41.0-53.0); Hemoglobin 12.2 g/dL (13.5-16.0); Immature Granulocytes Auto 0.05 Thou/mm3 (0.00-0.00); Lymphocytes # (Auto) 1.4 Thou/mm3 (1.0-4.8); Lymphocytes % (Auto) 15 % (10-50); Mean Corpuscular HGB Conc 31.1 g/dl (31.0-37.0); Mean Corpuscular Hemoglobin 29.0 pg (25.0-35.0); Mean Corpuscular Volume 93 fL (80-100); Monocytes # (Auto) 0.5 Thou/mm3 (0.0-0.8); Monocytes % (Auto) 5 % (0-12); Neutrophils # (Auto) 7.0 Thou/mm3 (1.8-7.7); Neutrophils % (Auto) 77 % (37-80); Nucleated Red Blood Cell # 0.00 Thou/mm3 (0.00-0.00); Nucleated Red Blood Cell % 0 /100 WBC (0); Platelet Count 408 Thou/mm3 (140-440); RDW Standard Deviation 52.0 fL (35.1-43.9); Red Blood Count 4.21 Miln/mm3 (4.50-5.90); White Blood Count 9.1 Thou/mm3 (3.8-10.6)
[2025-04-27 10:50] LABS: INR 1.0 (0.9-1.3); Partial Thromboplastin Time 24.2 Seconds (22.0-36.0); Prothrombin Time 11.0 Seconds (9.0-12.2)
[2025-04-27 10:56] LABS: Alanine Aminotransferase 9 U/L (10-49); Albumin, Serum 3.9 gm/dL (3.4-4.8); Albumin/Globulin Ratio 1.1 (1.2-2.2); Alkaline Phosphatase 64 U/L (46-116); Anion Gap 5 (7-16); Aspartate Amino Transferase 20 U/L (0-34); BUN/Creatinine Ratio 11 Ratio (12-20); Bilirubin,Total 0.5 mg/dL (0.3-1.2); Blood Urea Nitrogen 10 mg/dL (9-23); Calcium 9.1 mg/dL (8.3-10.6); Calcium (Corrected) 9.2 mg/dL (8.5-10.1); Carbon Dioxide 26.3 mMol/L (20.0-31.0); Chloride 106 mMol/L (98-107); Creatinine (Component) 0.9 mg/dL (0.6-1.3); Estimated Creatinine Clearance 79.6 mL/min (>60); Globulin 3.4 gm/dL (2.3-3.5); Glucose 93 mg/dL (74-106); Osmolality,Calculated 272 (275-295); Potassium 4.3 mMol/L (3.4-5.1); Sodium 137 mMol/L (136-145); Total Protein 7.3 gm/dL (5.7-8.2); eGFR > 60 See Note
[2025-05-02] VITALS (12 sets, daily range): BP systolic 104–160; BP diastolic 65–100; PULSE 44–93; RESP 12–96; TEMP 36.1–36.5; O2SAT 95–99; BMI 29.9; BMI 31.0
--- NOTE | 2025-05-02 09:15 | XR_ITS ---
EXAMINATION: Left retrograde pyelogram with without KUB Fluoroscopy AP abdomen single view Date and time: May 02, 2025, 1313 hours INDICATIONS: Generalized abdominal pain flank pain, sigmoid diverticulitis, peridiverticular abscess fistulous communication to the bladder on CT study April 17, 2025 TECHNIQUE AND FINDINGS: Single AP view the abdomen demonstrating nondilated calyces Fluoroscopy 3.5 seconds radiation dose 0.30 mGy IMPRESSION: Retrograde pyelogram as above
--- NOTE | 2025-05-02 14:08 | PD.SUROPNT ---
Date of Procedure 05/02/25 Pre Op Diagnosis Recurrent sigmoid diverticulitis with abscess and colovesicular fistula Post Op Diagnosis Same Procedure Exploratory laparotomy, sigmoidectomy, end colostomy, placement of drain and wound vac Findings Perisigmoid abscess containing pus Procedure Description After discussion of risks and benefits, patient was brought to the operating room, SCDs were placed and general anesthesia was induced. He received preoperative antibiotics and was prepped and draped in the usual sterile fashion. Patient first underwent cystoscopy with left ureteral stent placement which will be dictated separately by Dr. Baxter. After cystoscopy I irrigated the rectum using a 30 [place] Malecot and Betadine solution. Patient had performed mechanical as well as antibiotic prep so there was no stool in the rectum. The abdomen was then prepped and draped in the usual sterile fashion. Another timeout was performed and the midline incision was made with a #10 blade. The subcutaneous tissue was divided with electrocautery until the peritoneum was reached. The peritoneum was then elevated with tonsil clamps and incised with Metzenbaum scissors. The skin and subcutaneous tissue was retracted alternatingly with a Morton device as well as rich and sweetheart retractors. The sigmoid was noted to be quite firm and adherent to the pelvic wall. Using a combination of blunt dissection and Metzenbaum scissors, I was able to dissect the distal portion of the sigmoid from the pelvic wall and did note a return of approximately 25 cc of thick pus. Throughout this dissection I made sure to palpate the ureteral stent and confirm that it was well away from the plane in which I was dissecting. Continuing the dissection distally, and noted that the distal sigmoid/rectal stump was open and this tissue was quite adherent to the pelvic wall/bladder. I opted not to dissect any further so as to avoid injuring other structures and oversewed the distal sigmoid/rectal stump using a running 2-0 silk suture. I continued the dissection of the sigmoid proximally until healthy tissue was reached. The descending colon was then transected using a 60 mm [place] stapler with 2 blue loads. The abdomen was irrigated and there were no signs of bleeding. A 15 [place] KELLY was placed through the left lower quadrant terminating near the rectal stump. I then turned attention to the left upper quadrant where the colostomy site had been marked preoperatively. I grasped the skin with a Jagdish clamp and incised with electrocautery. The subcutaneous tissue was divided with electrocautery until the rectus muscle was reached. The muscle was then split with Belcher clamp and the peritoneum was incised also with electrocautery. I made sure that the opening was large enough to accommodate 2 fingers which it was. I then grasped the descending colon through this new colostomy site and found that it reached easily without any tension. I performed a TAP block using half percent Marcaine totaling 30 cc. Then closed the fascia using #1 PDS in a running fashion. The subcutaneous tissue was irrigated and, given the patient's pelvic abscess and concern for postoperative infection, I opted to manage the wound with a wound VAC instead of skin closure. After the wound VAC was placed, the colostomy was matured using 2-0 chromic sutures. A colostomy appliance was placed. Wound VAC was set to suction which was functioning appropriately. The left ureteral stent was then removed which was noted to be intact. At the end of the case the urine was slightly orange-tinged but there was no anastacia blood. Patient was then returned to supine position and extubated without complication. He was brought to PACU in stable condition Drains 15fr KELLY, wound vac Pathology / specimen Other (Sigmoid colon) Estimated Blood Loss 200 Surgeon Anisha Aden MD Surgical Staff Operation Date: 05/02/25 09:30 Case Staff Anesthesiologist: Jose Treviño Anesthesiologist: Ranjeet Sawyer RN First Assistant: Vijaya Phelps
--- NOTE | 2025-05-02 14:11 | SUR.PHASEI ---
1411: Pt. wakes to name then drifts back to sleep, vitals stable, breathing unlabored, no signs of distress, wound vac in place setting at 125mmhg, delgado catheter in place draining dark yellow urine, KELLY drain in place draining serosanguinnous fluid, report received from Marisel HANSON and MD Sawyer.
--- NOTE | 2025-05-02 14:33 | ESOP_ITS ---
Date of Procedure 05/02/25 Pre Op Diagnosis Prostate cancer status post robotic assisted radical prostatectomy and bilateral pelvic lymph node dissections done 10 years ago, abscess of sigmoid colon's Post Op Diagnosis Same Procedure Cystoscopic examination, insertion of left ureteral stent and a left retrograde pyelogram Findings Evidence of radical prostatectomy Procedure Description Indication for procedure this is a 75-year-old gentleman this patient is was diagnosed with prostate cancer he underwent robotic assisted radical prostat ectomy and bilateral pelvic lymph node dissections done at [facility] patient was lost to follow-up. Patient was admitted under Dr. Bennett's because of abscess of the sigmoid colon. She was going to do sigmoidectomy and colostomy she asked me to the place left ureteral stent Procedure and complications of this were explained to patient informed consent is obtained the patient received pre-op prophylaxis. Patient already had administration of general anesthesia he was positioned in a dorsal lithotomy position parts were prepped and draped in the usual sterile fashion. 21 cystoscope was introduced into the bladder per urethra anterior urethra revealed no stricture prostatic urethra revealed evidence of radical radical prostatectomy, . Examination of the bladder revealed no evidence of cancerous lesions, papillary or polyp type lesions or stones. There was [mild/moderate/ trabeculation . Both ureters were putting out clear urine. Identified the left ureteral orifice and passed a safety wire into the left ureter up to the renal pelvis. Over the safety wire I placed open-ended Pollick catheter retrograde pyelogram was performed this revealed good position of the catheter. Next instrument was withdrawn gently open-ended Pollick catheter was secured with a Gorman catheter the bladder was completely drained and the scope removed. The patient tolerated the procedure well. Post-op instructions were given. The patient is to call the office should any problems occur. Anesthesia GETA Pathology / specimen None Estimated Blood Loss 0.1 Condition Stable Surgeon Ran Baxter MD Surgical Staff Operation Date: 05/02/25 09:30 Case Staff Anesthesiologist: Joes Treviño Anesthesiologist: Ranjeet Sawyer RN First Assistant: Vijaya Phelps
[2025-05-02] MEDS: ONDANSETRON INJ 2 MG/ML INJ 2 ML 4 MG IVP ×2 (14:56→18:09)
--- NOTE | 2025-05-02 15:30 | SUR.PHASEI ---
1530: Pt. wakes to name, answers questions, then drifts back to sleep, vitals stable, breathing unlabored, no complaint of pain or nausea, wound vac in place on continuous suction 125mmhg, milagros drain in place draining serosanguinous fluid, delgado catheter in place draining dark yellow urine, pt. tolerated bites of ice chips well, gave report to Komal HANSON prior to transfer to room 377. Family made aware of transfer to room. Pt. transferred with all personal belongings.
[2025-05-02] MEDS: ACETAMINOPHEN IVPB 1,000 MG/100 ML VIAL 250 MG IV ×2 (16:21→22:01)
[2025-05-02] MEDS: CEFOXITIN 2 GM in SODIUM CHLORIDE 0.9% (Popper) 50 ML IV (22:02)
[2025-05-02] MEDS: HEPARIN SOD INJ 5000 UNIT/ML VIAL SC (22:04)
[2025-05-03] VITALS (8 sets, daily range): BP systolic 108–150; BP diastolic 59–88; PULSE 75–100; RESP 17–20; TEMP 36.4–36.6; O2SAT 90–97; BMI 31.1; BMI 13.0
[2025-05-03] MEDS: ACETAMINOPHEN IVPB 1,000 MG/100 ML VIAL 250 MG IV ×2 (03:27→10:11)
[2025-05-03] MEDS: CEFOXITIN 2 GM in SODIUM CHLORIDE 0.9% (Popper) 50 ML IV ×3 (06:21→21:38)
[2025-05-03] MEDS: HEPARIN SOD INJ 5000 UNIT/ML VIAL SC ×3 (06:22→21:45)
[2025-05-03] MEDS: PANTOPRAZOLE 40 MG TABLET PO (08:28)
[2025-05-03] MEDS: oxyCODONE HCL 5 MG IR TAB PO (08:40)
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
--- NOTE | 2025-05-03 11:32 | PC.SS ---
SS was informed by Wound RNBlanca that pt will DC with a new colostomy and wound vac for an open abd wound. SS attempted to contact pt son Dae Wallis [phone], to get better understanding of support at home. No answer, unable to leave voicemail as it has not been setup. SS also called house number [phone], no answer, VM left. SS will reattempt at a later time.
--- NOTE | 2025-05-03 12:44 | PD.SURPROG ---
Documentation for date of: 05/03/25 Subjective Subjective Narrative: Pain controlled with IV tylenol and one dose of PO oxycodone, having mild nausea but tolerating clears and gas noted in colostomy appliance. Since surgery pt has had 110cc sanguinous emptied from KELLY and >1500cc clear yellow urine from delgado, remaining afebrile with normal vitals Exam Vital Signs Temp Pulse Resp BP Pulse Ox O2 Del Method O2 Flow Rate 98 F 75 18 108/59 L 93 L Room Air 1 05/03/25 11:13 05/03/25 11:13 05/03/25 11:13 05/03/25 11:13 05/03/25 11:13 05/03/25 11:13 05/03/25 07:18 Constitutional Constitutional: no acute distress Routine Respiratory Exam Respiratory: Present no resp distress Routine Abdominal Exam Abdominal: Present soft, wound (midline wound with vac in place to suction, minimal output), drain (KELLY with sanguinous output) and ostomy (colostomy pink with gas in appliance); Absent distended Assessment & Plan Plan 75M with 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 admitted 05/02/25 for planned sigmoidectomy with end colostomy, gradually recovering PO pain regimen Advance to FLD Continue strict I&O Delgado to remain in place for 2 weeks postop due to colovesicular fistula Appreciate PT and CM recs Wound vac change tomorrow PROCEDURES: Procedures Cystoscopic examination, insertion of left ureteral stent and a left retrograde pyelogram
[2025-05-03] MEDS: BENZONATATE 100 MG CAPSULE 200 MG PO (14:31)
--- NOTE | 2025-05-03 14:56 | PC.SS ---
Rounding: Pt POD #1, pt has a wound vac and will DC with one. SS reached out to son, Dae [phone] who stated he wishes for pt to return home with HH, no preference. Per Dae he will take time off if needed to help assist pt. SS updated, Wound RN, Blanca who is assisting Dr. Aden.
[2025-05-03] MEDS: LANSOPRAZOLE 30 MG TAB.RAP.DR PO (15:25)
--- NOTE | 2025-05-03 17:50 | PC.PT ---
Patient is safe to ambulate in the halls with 1 staff for line management as patient has a KELLY drain, wound vac, and delgado catheter at this time. RN made aware.
[2025-05-03] MEDS: CALCIUM CARBONATE 600 MG TABLET PO (21:38)
[2025-05-03] MEDS: HYDROcodone/APAP 5/325 TABLET 1 TAB PO (21:38)
[2025-05-04] VITALS (7 sets, daily range): BP systolic 107–138; BP diastolic 64–79; PULSE 75–97; RESP 8–92; TEMP 36.5–37; O2SAT 90–95
[2025-05-04] MEDS: CALCIUM CARBONATE 600 MG TABLET PO ×2 (05:15→21:48)
[2025-05-04] MEDS: CEFOXITIN 2 GM in SODIUM CHLORIDE 0.9% (Popper) 50 ML IV ×3 (05:16→21:02)
[2025-05-04] MEDS: HYDROcodone/APAP 5/325 TABLET 1 TAB PO (05:16)
[2025-05-04] MEDS: HEPARIN SOD INJ 5000 UNIT/ML VIAL SC ×3 (05:16→21:02)
[2025-05-04 06:34] LABS: Basophils # (Auto) 0.0 Thou/mm3 (0.0-0.2); Basophils % (Auto) 0 % (0-2.5); Eosinophils # (Auto) 0.0 Thou/mm3 (0.0-0.5); Eosinophils % (Auto) 0 % (0-10); Hematocrit 33.7 % (41.0-53.0); Hemoglobin 10.7 g/dL (13.5-16.0); Immature Granulocytes Auto 0.07 Thou/mm3 (0.00-0.00); Lymphocytes # (Auto) 1.8 Thou/mm3 (1.0-4.8); Lymphocytes % (Auto) 11 % (10-50); Mean Corpuscular HGB Conc 31.8 g/dl (31.0-37.0); Mean Corpuscular Hemoglobin 29.5 pg (25.0-35.0); Mean Corpuscular Volume 93 fL (80-100); Monocytes # (Auto) 0.8 Thou/mm3 (0.0-0.8); Monocytes % (Auto) 5 % (0-12); Neutrophils # (Auto) 13.1 Thou/mm3 (1.8-7.7); Neutrophils % (Auto) 83 % (37-80); Nucleated Red Blood Cell # 0.00 Thou/mm3 (0.00-0.00); Nucleated Red Blood Cell % 0 /100 WBC (0); Platelet Count 431 Thou/mm3 (140-440); RDW Standard Deviation 53.5 fL (35.1-43.9); Red Blood Count 3.63 Miln/mm3 (4.50-5.90); White Blood Count 15.7 Thou/mm3 (3.8-10.6)
[2025-05-04 06:45] LABS: Anion Gap 8 (7-16); BUN/Creatinine Ratio 13 Ratio (12-20); Blood Urea Nitrogen 12 mg/dL (9-23); Calcium 9.2 mg/dL (8.3-10.6); Carbon Dioxide 30.0 mMol/L (20.0-31.0); Chloride 104 mMol/L (98-107); Creatinine (Component) 0.9 mg/dL (0.6-1.3); Estimated Creatinine Clearance 78.2 mL/min (>60); Glucose 89 mg/dL (74-106); Magnesium 2.1 mg/dL (1.6-2.6); Osmolality,Calculated 281 (275-295); Phosphorous 3.5 mg/dL (2.4-5.1); Potassium 4.0 mMol/L (3.4-5.1); Sodium 142 mMol/L (136-145); eGFR > 60 See Note
--- NOTE | 2025-05-04 09:03 | PC.NURSE ---
Pt having nausea and vomiting. Called Dr. Aden. ordered an xray to see if NG tube needed. Pt NPO now.
--- NOTE | 2025-05-04 09:08 | XR_ITS ---
EXAMINATION: Abdomen, supine, upright 2 views. Technique: Abdomen AP upright, supine 2 views Date and time of exam: May 04, 2025, 10:00 a.m. INDICATIONS: Postop vomiting FINDINGS: Limited study, no visualization of the lower abdomen Moderate air in the colon There are air distended small bowel loops No free air Accentuation of the interstitial markings at the lung bases IMPRESSION: Findings most consistent with mild small bowel ileus
[2025-05-04] MEDS: ONDANSETRON INJ 2 MG/ML INJ 2 ML 4 MG IVP ×2 (09:10→21:10)
--- NOTE | 2025-05-04 10:04 | PD.SURPROG ---
Documentation for date of: 05/04/25 Subjective Subjective Narrative: Overnight pt had episodes of vomiting and dry heaving, he feels like it is related to stomach acid which he takes omeprazole for at home. At the moment he states nausea is improved and his pain has been controlled. His colostomy has gas output but minimal stool, KELLY output remaining sanguinouos and was 70cc/24h, delgado appropriate output. Remaining afebrile, WBC 15 Exam Vital Signs Temp Pulse Resp BP Pulse Ox O2 Del Method O2 Flow Rate 98.2 F 82 19 107/74 90 L Room Air 1 05/04/25 08:00 05/04/25 08:00 05/04/25 08:00 05/04/25 08:00 05/04/25 08:00 05/04/25 08:00 05/04/25 04:00 Constitutional Constitutional: no acute distress Routine Respiratory Exam Respiratory: Present no resp distress Routine Abdominal Exam Abdominal: Present soft, wound (midline wound with healthy subcutaneous tissue, no surrounding erythema, wound vac changed), drain (KELLY with sanguinous output) and ostomy (colostomy pink with gas in appliance); Absent tenderness or distended Routine Exam Comments: delgado with clear yellow urine Results Results: Laboratory Laboratory results: results reviewed Assessment & Plan Plan 75M with 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 admitted 05/02/25 for planned sigmoidectomy with end colostomy, gradually recovering Follow up AXR, depending on result may require NG NPO for now, ok to have ice chips and hard candies Protonix IV for now Strict I&O PT/OOB PROCEDURES: Procedures Cystoscopic examination, insertion of left ureteral stent and a left retrograde pyelogram
[2025-05-04] MEDS: RINGERS LACTATED 1000 ML 1,000 ML 125 ML IV ×2 (10:50→18:18)
--- NOTE | 2025-05-04 13:09 | PC.SS ---
SS met with pt at bedside to discuss DC planning, pt has changed his mnd on going home and wishes to DC to a SNF for short term, due to his new colostomy and wound. SS sent off referral, pending responses. Pt does not have a preference at this time. Pt request a few days to decide what he wishes to choose. Options to be provided once available.
--- NOTE | 2025-05-04 13:50 | PC.CC ---
PASRR Level 1 complete and downloaded; Level 2 not required.
--- NOTE | 2025-05-04 17:45 | PC.NURSE ---
Called Dr. Aden and made aware that patient is still not having output inthe illeostomy. He is passing gas, however, no stool. No new orders at this time.
[2025-05-04] MEDS: BENZONATATE 100 MG CAPSULE 200 MG PO (21:49)
[2025-05-05] VITALS (8 sets, daily range): BP systolic 102–137; BP diastolic 65–89; PULSE 71–82; RESP 18–94; TEMP 36.7–36.9; O2SAT 93–94
[2025-05-05] MEDS: RINGERS LACTATED 1000 ML 1,000 ML 125 ML IV (02:02)
[2025-05-05] MEDS: HEPARIN SOD INJ 5000 UNIT/ML VIAL SC ×3 (05:12→21:06)
[2025-05-05] MEDS: CEFOXITIN 2 GM in SODIUM CHLORIDE 0.9% (Popper) 50 ML IV ×3 (05:12→21:06)
--- NOTE | 2025-05-05 08:49 | PD.SURPROG ---
Documentation for date of: 05/05/25 Subjective Subjective Narrative: Pain controlled, pt reports one episode of nausea with a teaspoon of emesis last night but he tolerated clears this morning, remaining afebrile. No stool output from colostomy but pt has noticed gas and did complete a golytely prep the day prior to surgery. He also reports using docusate at home regularly Exam Vital Signs Temp Pulse Resp BP Pulse Ox O2 Del Method O2 Flow Rate 98.4 F 82 20 133/69 H 94 L Room Air 1 05/05/25 07:33 05/05/25 07:33 05/05/25 07:33 05/05/25 07:33 05/05/25 07:33 05/05/25 07:33 05/04/25 04:00 Constitutional Constitutional: no acute distress Routine Respiratory Exam Respiratory: Present no resp distress Routine Abdominal Exam Abdominal: Present soft, drain (KELLY with minimal sanguinous output) and ostomy (pink with no stool in appliance); Absent tenderness or distended Routine Exam Comments: delgado with clear yellow urine Assessment & Plan Plan 75M with 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 admitted 05/02/25 for planned sigmoidectomy with end colostomy, gradually recovering CLD, awaiting return of bowel function Colace daily DC IVF OOB/PT Abx for 4 days postop PROCEDURES: Procedures Cystoscopic examination, insertion of left ureteral stent and a left retrograde pyelogram
[2025-05-05] MEDS: DOCUSATE SOD 100 MG CAPSULE PO (10:00)
[2025-05-05] MEDS: BENZONATATE 100 MG CAPSULE 200 MG PO ×2 (10:10→21:17)
[2025-05-05] MEDS: HYDROcodone/APAP 5/325 TABLET 1 TAB PO (19:38)
[2025-05-05] MEDS: CALCIUM CARBONATE 600 MG TABLET PO (21:15)
[2025-05-06] VITALS (7 sets, daily range): BP systolic 116–134; BP diastolic 65–75; PULSE 79–89; RESP 16–96; TEMP 36.5–36.8; O2SAT 92–96
[2025-05-06] MEDS: HYDROcodone/APAP 5/325 TABLET 1 TAB PO ×3 (00:29→19:49)
[2025-05-06] MEDS: HEPARIN SOD INJ 5000 UNIT/ML VIAL SC ×3 (05:22→21:24)
[2025-05-06] MEDS: CEFOXITIN 2 GM in SODIUM CHLORIDE 0.9% (Popper) 50 ML IV ×3 (05:22→21:20)
[2025-05-06 05:38] LABS: Basophils # (Auto) 0.1 Thou/mm3 (0.0-0.2); Basophils % (Auto) 1 % (0-2.5); Eosinophils # (Auto) 0.3 Thou/mm3 (0.0-0.5); Eosinophils % (Auto) 3 % (0-10); Hematocrit 34.6 % (41.0-53.0); Hemoglobin 10.9 g/dL (13.5-16.0); Immature Granulocytes Auto 0.06 Thou/mm3 (0.00-0.00); Lymphocytes # (Auto) 1.2 Thou/mm3 (1.0-4.8); Lymphocytes % (Auto) 11 % (10-50); Mean Corpuscular HGB Conc 31.5 g/dl (31.0-37.0); Mean Corpuscular Hemoglobin 29.8 pg (25.0-35.0); Mean Corpuscular Volume 95 fL (80-100); Monocytes # (Auto) 0.6 Thou/mm3 (0.0-0.8); Monocytes % (Auto) 5 % (0-12); Neutrophils # (Auto) 8.9 Thou/mm3 (1.8-7.7); Neutrophils % (Auto) 80 % (37-80); Nucleated Red Blood Cell # 0.00 Thou/mm3 (0.00-0.00); Nucleated Red Blood Cell % 0 /100 WBC (0); Platelet Count 312 Thou/mm3 (140-440); RDW Standard Deviation 54.1 fL (35.1-43.9); Red Blood Count 3.66 Miln/mm3 (4.50-5.90); White Blood Count 11.1 Thou/mm3 (3.8-10.6)
[2025-05-06 06:00] LABS: Anion Gap 9 (7-16); BUN/Creatinine Ratio 8 Ratio (12-20); Blood Urea Nitrogen 6 mg/dL (9-23); Calcium 9.5 mg/dL (8.3-10.6); Carbon Dioxide 28.2 mMol/L (20.0-31.0); Chloride 103 mMol/L (98-107); Creatinine (Component) 0.8 mg/dL (0.6-1.3); Estimated Creatinine Clearance 87.9 mL/min (>60); Glucose 79 mg/dL (74-106); Magnesium 1.9 mg/dL (1.6-2.6); Osmolality,Calculated 276 (275-295); Phosphorous 4.2 mg/dL (2.4-5.1); Potassium 4.3 mMol/L (3.4-5.1); Sodium 140 mMol/L (136-145); eGFR > 60 See Note
[2025-05-06] MEDS: DOCUSATE SOD 100 MG CAPSULE PO (09:59)
--- NOTE | 2025-05-06 12:09 | PD.SURPROG ---
Documentation for date of: 05/06/25 Subjective Subjective Narrative: Pt reports feeling better today compared to previous days, he is taking pain meds more regularly but relates this to moving more. No nausea, WBC downtrended and remaining afebrile, now having stool in appliance. KELLY minimal output and delgado remaining clear Exam Vital Signs Temp Pulse Resp BP Pulse Ox O2 Del Method O2 Flow Rate 97.9 F 79 18 134/70 H 96 Room Air 1 05/06/25 12:00 05/06/25 12:00 05/06/25 12:00 05/06/25 12:00 05/06/25 12:00 05/06/25 12:00 05/04/25 04:00 Constitutional Constitutional: no acute distress Routine Respiratory Exam Respiratory: Present no resp distress Routine Abdominal Exam Abdominal: Present soft, drain (KELLY with minimal serosanguinous output) and ostomy (colostomy with brown stool in appliance); Absent tenderness or distended Results Results: Laboratory Laboratory results: results reviewed Assessment & Plan Plan 75M with 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 admitted 05/02/25 for planned sigmoidectomy with end colostomy, gradually recovering GERD diet Strict I&O OOB/ambulate as tolerated PROCEDURES: Procedures Cystoscopic examination, insertion of left ureteral stent and a left retrograde pyelogram
[2025-05-06] MEDS: BENZONATATE 100 MG CAPSULE 200 MG PO (16:53)
[2025-05-07] VITALS: BP 128/67; PULSE 86; RESP 20; TEMP 36.3; O2SAT 94
[2025-05-07 01:53] VITALS: PULSE 85; RESP 18; RESP 95
[2025-05-07 04:00] VITALS: BP 114/70; PULSE 76; RESP 20; TEMP 36.5; O2SAT 94
[2025-05-07] MEDS: CEFOXITIN 2 GM in SODIUM CHLORIDE 0.9% (Popper) 50 ML IV (05:28)
[2025-05-07] MEDS: HEPARIN SOD INJ 5000 UNIT/ML VIAL SC (05:31)
[2025-05-07 07:29] VITALS: PULSE 78; RESP 20; RESP 93
[2025-05-07 08:00] VITALS: BP 122/69; PULSE 82; RESP 18; TEMP 36.2; O2SAT 93
[2025-05-07] MEDS: DOCUSATE SOD 100 MG CAPSULE PO (08:39)
[2025-05-07] MEDS: HYDROcodone/APAP 5/325 TABLET 1 TAB PO (09:24)
[2025-05-07 12:00] VITALS: BP 125/61; PULSE 74; RESP 18; TEMP 36.7; O2SAT 94
--- NOTE | 2025-05-07 12:26 | PC.NURSE ---
Provider Markie in room with wound nurse. provider removing KELLY drain and wound vac, and is placing a wet to dry dressing herself on insicion. Provider Markie states provider will be DC'd to SNF
--- NOTE | 2025-05-07 12:35 | ESPR_ITS ---
Documentation for date of: 05/07/25 Subjective Subjective Narrative: Pain controlled, tolerating solid food and continuing to have colostomy output. KELLY output 10cc/24h for the past two days, removed today. Remaining afebrile Exam Vital Signs Temp Pulse Resp BP Pulse Ox O2 Del Method O2 Flow Rate 97.2 F 82 18 122/69 93 L Room Air 1 05/07/25 08:00 05/07/25 08:00 05/07/25 08:00 05/07/25 08:00 05/07/25 08:00 05/07/25 04:00 05/04/25 04:00 Constitutional Constitutional: no acute distress Routine Respiratory Exam Respiratory: Present no resp distress Routine Abdominal Exam Abdominal: Present soft, wound (midline wound with beefy red granulation tissue, no surrounding erythema, no fluctuance or tenderness) and ostomy (colostomy pink with brown stool in appliance); Absent tenderness or distended Results Results: Laboratory Laboratory results: results reviewed Assessment & Plan Plan 75M with 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 admitted 05/02/25 for planned sigmoidectomy with end colostomy, gradually recove ring now with return of bowel function OK for dc as he is tolerating regular diet, remaining afebrile with pain controlled on PO meds Will leave delgado in place due to colovesicular fistula, will plan on cystoscopy POD 14 PROCEDURES: Procedures Cystoscopic examination, insertion of left ureteral stent and a left retrograde pyelogram
--- NOTE | 2025-05-07 12:37 | ESDS_ITS ---
Planned Discharge Date 05/07/25 DS: Providers Provider Date of admission: 05/02/25 15:32 Primary care physician: Ebony Basurto MD Admitting Provider: Anisha Aden MD Attending Provider on Admission: Anisha Aden MD Consults: 05/02/25 08:55 Consult to Urology Routine Comment: cystoscopy with stent placement Consulting Provider: Ran Baxter 05/03/25 08:11 Referral Wound Care Routine Comment: 05/03/25 08:37 Referral Discharge Planning Routine Comment: Instructions: Will need wound vac and colostomy teaching on discharge Referral Nutritional Services Routine Comment: Instructions: Abdominal wound with new colostomy 05/03/25 08:38 Referral OP Wound Healing Dept Routine Comment: Instructions: Midline abdominal surgical incision with wound vac and new colostomy 05/03/25 12:42 Referral Physical Therapy Routine Comment: Physician Instructions: Attending Provider on DC: Anisha Aden MD Discharging Provider: Anisha Aden MD Diagnosis Discharge Diagnosis (1) Colovesical fistula: Status: Acute (2) Intestinal diverticular abscess: Status: Acute Problem List Completed Was Problem List Reviewed/Reconciled?: Yes Hospital Course Brief History: Pt has had several episodes of diverticulitis with abscess requiring percutaneo us drainage since 2022. He had been planned for elective sigmoidectomy Apr 2025 however shortly before the surgery developed fever and signs of colovesicular fistula. Pt presented 05/02/25 for sigmoidectomy with end colostomy which proceeded without complication. He is now recovering well with return of bowel function, pain controlled on PO meds and remaining afebrile, appropriate for dc to SNF. Of note delgado is left in place to allow healing of the colovesicular fistula, will order cystogram to be completed on POD 14 Exam Vital Signs Temp Pulse Resp BP Pulse Ox O2 Del Method O2 Flow Rate 97.2 F 82 18 122/69 93 L Room Air 1 05/07/25 08:00 05/07/25 08:00 05/07/25 08:00 05/07/25 08:00 05/07/25 08:00 05/07/25 04:00 05/04/25 04:00 Constitutional Constitutional: no acute distress Routine Respiratory Exam Respiratory: Present no resp distress Routine Abdominal Exam Abdominal: Present soft, wound (midline wound with beefy red granulation tissue) and ostomy (colostomy pink with brown stool in appliance); Absent tenderness or distended Discharge Plan Plan Patient Disposition: Xfer Skilled Nsg Fac (SNF) Care Plan Goals: Wound care: Midline abdominal surgical incision: cleanse with NS, pat dry. Fill wound bed iwth black foam. Skin prep to wound edges, drape and trac pad at 125mmgh continuous suction. Change Mon/Wed/Fri and PRN for falling off or saturating. LUQ colostomy appliance: Please change appliance with every wound vac dressing change. Prep 2 piece appliance. Cut wafer 38mm round and warm wafer to help with adherence. Remove old appliance and cleanse pam stomal skin with soap and water (no wipes or lotion products). Apply warm appliance over stoma, hold light pressure to help with adherence. Prescriptions/Referrals Prescriptions/Med Rec: New oxycodone-acetaminophen [Percocet] 5-325 mg tablet 1 tab PO Q4H MDD 6 tabs PRN (Reason: pain) Qty: 30 0RF Rx Instructions: Take 1 tablet as needed every 4-6 hours for moderate to severe pain docusate sodium [Colace] 100 mg capsule 100 mg PO QDAY Qty: 30 0RF Rx Instructions: Take 1 tablet daily for constipation Continued omeprazole 40 mg capsule,delayed release(DR/EC) 40 mg PO .qod Discontinued ciprofloxacin HCl 500 mg tablet 500 mg PO Q12H Qty: 30 0RF erythromycin 500 mg tablet 500 mg PO TID Qty: 6 0RF Rx Instructions: Take 2 tablets (1000mg) at 2pm, 3pm and 10pm the day before surgery (May 01) metronidazole 500 mg tablet 500 mg PO Q12H Qty: 30 0RF neomycin 500 mg tablet 500 mg PO TID Qty: 6 0RF Rx Instructions: Take 1000mg (2 tablets) at 2pm, 3pm and 10pm on 05/01 (the day before s urgery) Referrals: Anisha Aden MD [Physician, General Surgery] Ebony Basurto MD [Primary Care Provider, Family Practice] Outpatient Orders (i.e. Home Health, Labs, Imaging): XR cystogram min 3V (Routine) Timeframe: [id number] Facility: [facility] - Location: Diagnostic Imaging ([facility]) Ordered By: Anisha Aden Patient/Caregiver Discharge Instructions Other Discharge Activity Instructions:: Avoid lifting objects >10lbs for 6 weeks If you develop worsening pain, nausea/vomiting, fever or concerns about your incision please seek care in ER For any non-urgent concern please call the office at [phone] during business hours (M-F 8-4pm except 12-1pm for lunch) Education Materials: Colostomy: Living an Active Life, Colostomy: Changing Your Pouch, Colostomy: Caring for Your Stoma, Colostomy: Managing Your Nutrition, Preventing Surgical Site Infections Print Language: [place]erratian Stand Alone Forms: [employer] Award Info., Patient Portal Info Letter Discharge Order Discharge Orders: Discharge (Routine); Ordered 05/07/25 Ordered By: Anisha Aden Results Results: Laboratory Laboratory results: results reviewed Results: Imaging CT scan - abdomen: report reviewed and image reviewed PROCEDURES: Procedure Date 05/02/25 Procedures Cystoscopic examination, insertion of left ureteral stent and a left retrograde pyelogram
--- NOTE | 2025-05-07 13:34 | PC.SS ---
Addendum entered by Nell Herrera 05/07/25 15:38: SS followed up with patient and indicated that [facility] states they will have wound vac ready by end of the day. Patient can d/c today by 5p.m. [facility] units are unavailable until 8p.m. Patient worked with PT and ambulated 300 feet. Patient can d/c via private vehicle. Patient contacted his sons to transport to [facility] at 5p.m. Floor nurse aware. Original Note: follow up note: SS followed up with patient on SNF preference. Patient will need wound vac, wound care and PT services. Patient and sons were provided all information/contact information for local SNF's. Patient chose [facility]. SS contacted facility to order wound vac for a possible d/c today. No auth needed.
--- NOTE | 2025-05-07 16:36 | PC.NURSE ---
Report given to [facility] Lena
--- NOTE | 2025-05-07 16:47 | PC.NURSE ---
pt leaving with family to [facility]
== END 2025-05-07 17:00 | disposition skilled nursing facility (03) | DRG 329 ==
LOC: S3SX 15:50
PROVIDERS: Anesthesiology; Urology; Admitting Provider Surgery; PCP Family Medicine; Referring Provider Surgery; Visit Provider Surgery
PROC: 0T778DZ Dilation of Left Ureter with Intraluminal Device, Via Natural or Artificial Opening Endoscopic (ICD-10-PCS; principal; 2025-05-02 09:15)
PROC: (CPT 52282; 2025-05-02 09:15)
DX: K57.20 Diverticulitis of large intestine with perforation and abscess without bleeding (principal); K65.1 Peritoneal abscess; N32.1 Vesicointestinal fistula; Z85.46 Personal history of malignant neoplasm of prostate
CPT/HCPCS: 36415; 74018; 74420; 80048; 80053; 83735; 84100; 85025; 85610; 85730; 87081; 93005; 94664; 97162; A4217; A4649; C1769; C1894; J0131; J0694; J1100; J1171; J1644; J2371; J2405; J2470; J2704; J3010; J3490; J7050; J7120; A9270; J1805

== ENCOUNTER 2025-05-21 11:52 | Outpatient (AMB) | payer OTHER, MEDICARE, SELFPAY ==
[2025-05-21 11:59] VITALS: BP 129/79; PULSE 18; RESP 18; TEMP 36.1; O2SAT 98; BMI 28.0
--- NOTE | 2025-05-21 11:59 | PD.GSCLVISIT ---
Vital Signs - [facility] 05/21/25 11:59 Height 1.75 m Height Method Measured Weight 85.757 kg Weight Measurement Method Standing Scale BMI 28.0 BP 129/79 Blood Pressure Source Automatic Cuff Blood Pressure Location Left Upper Arm Position Sitting Respiration 18 Pulse 18 L Pulse Source Monitor Temp 97.0 F Temp Source Temporal Artery Scan Pulse Oximetry (%) 98 Oxygen Delivery Method Room Air Med/Allergies Allergies & Medications Allergies No Known Allergies Allergy (Verified 05/21/25 12:00) Medication Reconciliation omeprazole 40 mg capsule,delayed release 40 mg PO .qod 04/17/25 [History Confirmed 05/21/25] docusate sodium 100 mg capsule (Colace) 100 mg PO QDAY #30 caps 05/07/25 [Rx Confirmed 05/21/25] oxycodone-acetaminophen 5 mg-325 mg tablet (Percocet) 1 tab PO Q4H PRN pain #30 tabs 05/07/25 [Rx Confirmed 05/21/25] MA Intake Visit Data Collection New Patient or Established: Established Patient (seen at [facility] within 3 years) Seen by Clinical Staff ONLY (RN/MA): No Reason for Visit:: 2 WEEK POST OP Pain Present Currently: No Pain Scale Used: [employer]ant Required: No PCP or OBGYN visit in last 3 months: Yes Hx Now: No Do You Feel Safe at Home: Yes Authorities Contacted: N/A Smoking Status Smoking Status: Never smoker Immunization / Flu Flu Vaccine in the Last 12 Months: Yes Flu Vaccine Exclusion Criteria: Already Received Past Medical History Past Medical History NEUROLOGIC: Negative Neurological Disorders or Seizures CARDIAC: Positive Hypercholesterolemia and Hypertension; Negative Cardiac Disorders or Congestive Heart Failure RESPIRATORY: Negative Chronic Obstructive Pulmonary Disease (COPD) or Asthma GASTROINTESTINAL: Positive Gastrointestinal Disorders, Gastrointestinal Bleed, Diverticulitis, Diverticulosis and Gastroesophageal Reflux Disease GENITOURINARY: Positive Prostate Cancer; Negative Genitourinary Disorders or Renal Disease REPRODUCTIVE: Negative Fibroids or Testicular Cancer MUSCULOSKELETAL: Positive Arthritis ENT: Positive Cataracts ENDOCRINE: Negative Endocrine Disorders, Diabetes Mellitus Type 1 or Diabetes Mellitus Type 2 HEMATOLOGIC: Positive Anemia; Negative Blood Disorders or Sickle Cell Disease PSYCHO/SOCIAL: Negative Depression or Anxiety OTHER HISTORY: Positive Chicken Pox, Measles, Mumps, Cancer and Prostate Cancer; Negative Blood Transfusions, Anesthesia Reactions, Organ Transplant, MRSA, VRSA, Vancomycin-Resistant Enterococci, Human Immunodeficiency Virus (HIV), Clostridium Difficile or Testicular Cancer Family History FAMILY HISTORY: Positive Family Respiratory Disorders, Family Cardiac Disorders, Family Gastrointestinal Problems, Family Cancer and Family Surgery; Negative Family Psychiatric Problems or Family Anesthesia Reaction Surgical History SURGICAL: Positive Abdominal Surgery; Negative Cardiac Surgery, Endocrine Surgery, Thyroidectomy, Ear Surgery, Nephrectomy, Transurethral Resection, Joint Replacement or Organ Transplant Social History SMOKING STATUS: Smoking status: Never smoker ALCOHOL: Alcohol Intake: Current ALCOHOL FREQUENCY: Alcohol Intake Frequency: holidays/special occasions only HOUSING: Housing: House LIVES WITH: Lives With: Family HPI HPI Narrative 75M with 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 Pt reports feeling ok overall, he has no abdominal pain but is feeling discomfort related to the bladder catheter. He underwent cystogram today which did not demonstrate any extravasation so I will remove the catheter. Pt feels his appetite has not fully returned but is unsure if that is related to the food he is receiving in rehab. His colostomy is functioning and he is confident with emptying the appliance but is not yet sure how to change it. He otherwise feels ready to return home ROS Review of Systems Systems Reviewed: All systems reviewed, normal except as documented Objective/Exam General General Appearance: alert, cooperative and well groomed Resp Respiratory exam: Absent respiratory distress Abdominal Abdominal exam: Present soft, incision (midline wound with beefy red granulation tissue, no surrounding erythema) and other (colostomy pink with brown stool in appliance); Absent distention or tenderness Results Cystogram reviewed Assessment & Plan Diagnosis / Problem List (1) Colovesical fistula: Status: Acute Assessment & Plan: 75M with 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 I reiterated that I recommend waiting 6 months before colostomy reversal due to the severity of inflammation of the distal sigmoid. Pt is understandably disappointed but expressed understanding Plan: Follow up in 2 weeks Advanced Care Planning Advance care planning discussed with:: other Office Procedures GNS Level of Care Nursing/Assessment Patient Status: Established Patient Nursing Assessment/Reassesment: Medication Reconciliation, Update PMH in EMR and Vital Signs Coordination of Care: Complex Care and Chronic Disease 1-5, Education Complex Pt/Fam, Consent,records obtained, informed consent, Results/Orders obtained and Staff clarify orders Established Patient Charge Established Patient Point Assignment: 95 Established Patient Point Charge: EP Level 3 (80-115) Patient Portal Questionaires Social History Living Situation History Housing: House Housing Other:: lives with son Tobacco History Smoking Status: Never smoker Alcohol History Alcohol Intake: Current Alcohol Intake Frequency: holidays/special occasions only Alcohol Intake Frequency Other:: once a month Domestic Abuse History Do You Feel Safe at Home: Yes Review of Systems Report any current symptoms Only answer those that you have currently: Past Medical History Past Medical History Have you ever been diagnosed with any of the following: Neurological Problems Seizures: No Cardiology Problems Hypercholesterolemia: Yes Congestive Heart Failure: No Hypertension: Yes Respiratory Problems Chronic Obstructive Pulmonary Disease (COPD): No Asthma: No Stomache/Intestinal Problems Gastrointestinal Bleed: Yes Diverticulitis: Yes Diverticulosis: Yes Gastroesophageal Reflux Disease: Yes Genital/Urinary Problems Renal Disease: No Prostate Cancer: Yes Reproductive Problems Fibroids: No Testicular Cancer: No Musculoskeletal Problems Arthritis: Yes Head,Eye,Nose,Throat Problems Cataracts: Yes Endocrine Problems Diabetes Mellitus Type 1: No Diabetes Mellitus Type 2: No Blood Problems Anemia: Yes Sickle Cell Disease: No Psychologic Problems Depression: No Anxiety: No Other Problems Blood Transfusions: No Anesthesia Reactions: No Organ Transplant: No MRSA: No VRSA: No Vancomycin-Resistant Enterococci: No Human Immunodeficiency Virus (HIV): No Chicken Pox: Yes Measles: Yes Mumps: Yes Clostridium Difficile: No Cancer: Yes Surgical History Thyroidectomy: No
== END 2025-05-21 12:21 | disposition home or self-care (01) ==
PROVIDERS: PCP Family Medicine; Referring Provider Family Medicine; Supervising Provider Surgery; Visit Provider Surgery
DX: Z48.815 Encounter for surgical aftercare following surgery on the digestive system (principal); I10 Essential (primary) hypertension
CPT/HCPCS: 99213; G0463

== ENCOUNTER → 2025-05-21 | Outpatient (CLI) | payer MEDICARE, OTHER, SELFPAY ==
--- NOTE | 2025-05-21 10:31 | XR_ITS ---
EXAMINATION: Cystogram 9 spot fluoroscopic films of the bladder AP, ALONZO and CORNEL crosstable lateral supine overhead films of the bladder obtained Date and time: May 21, 2025, 1152 hours INDICATIONS: Acute sigmoid diverticulitis, bladder wall thickening on CT study of the pelvis April 17, 2025 TECHNIQUE AND FINDINGS: Administration 150 cc Cystografin with 9 spot fluoroscopic films of the bladder were obtained Bladder contour is irregular No abnormal communication of contrast in the bladder with the bowel is noted IMPRESSION: No fistula demonstrated Fluoroscopy 0.1-minute 9 spot fluoroscopic films radiation dose 41.89 mGy
== END | disposition home or self-care (01) ==
LOC: SDIM 10:26
PROVIDERS: PCP Family Medicine; Referring Provider Surgery; Visit Provider Surgery
DX: N32.1 Vesicointestinal fistula (principal)
CPT/HCPCS: 51600; 74430; Q9958

== ENCOUNTER 2025-05-25 16:09 | Emergency (ER) | payer OTHER, MEDICARE, SELFPAY ==
[2025-05-25 16:10] VITALS: BMI 26.2
[2025-05-25 16:36] VITALS: BP 146/76; PULSE 82; RESP 18; TEMP 37.1; O2SAT 99
--- NOTE | 2025-05-25 17:16 | PD.EDADULT ---
ED General RME/HPI General Chief complaint: Wound Recheck / Suture Removal Stated complaint: INFECTED OSTOMY Time Seen by Provider: 05/25/25 17:15 Arrival date/time: 05/25/25 16:09 CC: Colostomy site infection HPI patient presents to the ER with redness around his colostomy site. Denies fever chills chest pain shortness of breath difficulty breathing. Patient was presented to me by the ostomy nurse who is already coming prior to my assessment and changed out the dressings. Showing me pictures that the site was clean dry and intact and not infected. There is no surrounding erythema or exudate. Vital signs are stable patient has no other complaints Related Data Home Medications ?Medication ?Instructions ?Recorded ?Confirmed omeprazole 40 mg capsule,delayed 40 mg PO .qod 04/17/25 05/21/25 release Previous Rx's ?Medication ?Instructions ?Recorded docusate sodium 100 mg capsule 100 mg PO QDAY #30 caps 05/07/25 (Colace) oxycodone-acetaminophen 5 mg-325 1 tab PO Q4H PRN pain #30 tabs 05/07/25 mg tablet (Percocet) Allergies Allergy/AdvReac Type Severity Reaction Status Date / Time No Known Allergies Allergy Verified 05/25/25 16:11 Review of Systems Review of Systems Narrative Review of Systems: GEN: No fever, no chills, no weight loss EYES: No discharge, no visual changes, no pain HEENT: No ear pain, no congestion, no sore throat PULM: No shortness of breath, no cough, no congestion CV: No chest pain, no dyspnea on exertion, no palpitations GI: No nausea, no vomiting, no diarrhea, no pain, no constipation : No frequency, no urgency, no dysuria MUSC/SKEL: Colostomy no joint pain, no back pain SKIN: No rash PSYCH: No hallucinations, no depression HEME/LYMPH: No easy bleeding or bruising tendencies NEURO: No weakness, no headache Past Medical History Past Medical History NEUROLOGIC: Negative Neurological Disorders or Seizures CARDIAC: Positive Hypercholesterolemia and Hypertension; Negative Cardiac Disorders or Congestive Heart Failure RESPIRATORY: Negative Chronic Obstructive Pulmonary Disease (COPD) or Asthma GASTROINTESTINAL: Positive Gastrointestinal Disorders, Gastrointestinal Bleed, Diverticulitis, Diverticulosis and Gastroesophageal Reflux Disease GENITOURINARY: Positive Prostate Cancer; Negative Genitourinary Disorders or Renal Disease REPRODUCTIVE: Negative Fibroids or Testicular Cancer MUSCULOSKELETAL: Positive Arthritis; Negative Musculoskeletal Disorders ENT: Positive Cataracts ENDOCRINE: Negative Endocrine Disorders, Diabetes Mellitus Type 1 or Diabetes Mellitus Type 2 HEMATOLOGIC: Positive Anemia; Negative Blood Disorders or Sickle Cell Disease PSYCHO/SOCIAL: Negative Depression or Anxiety OTHER HISTORY: Positive Chicken Pox, Measles, Mumps, Cancer and Prostate Cancer; Negative Autoimmune Disease, Blood Transfusions, Anesthesia Reactions, Organ Transplant, MRSA, VRSA, Vancomycin-Resistant Enterococci, Human Immunodeficiency Virus (HIV), Clostridium Difficile or Testicular Cancer Family History FAMILY HISTORY: Positive Family Respiratory Disorders, Family Cardiac Disorders, Family Gastrointestinal Problems, Family Cancer and Family Surgery; Negative Family Psychiatric Problems or Family Anesthesia Reaction Surgical History SURGICAL: Positive Abdominal Surgery; Negative Cardiac Surgery, Endocrine Surgery, Thyroidectomy, Ear Surgery, Nephrectomy, Transurethral Resection, Joint Replacement or Organ Transplant Social History SMOKING STATUS: Former smoker ED Exam Narrative Physical exam: [General: Not in any acute distress Head normocephalic HEENT: Within acceptable limits Neck is supple nontender Chest equal chest rise nontender to palpation Respiratory: Clear to auscultation no wheezes crackles or rubs CV: Rate rhythm is regular no murmurs rubs or clicks Abdomen abdomen is soft nontender vertical incision has a dressing is clean dry and intact, colostomy bag is in place and intact stoma is pink clean and dry no surrounding erythema edema no open lesions or oozing or ulceration. Back: No CVA tenderness no spinous process tenderness from cervical spine thoracic and lumbar spine Skin: Other than stated above skin is intact no petechiae rash induration ulceration or crepitus Extremities: Moving all extremity against resistance cap refill less than 2 seconds neurosensory intact Neuro: Awake alert oriented x3 Glascow coma 15 no focal deficits] Course Quality Measures none Vital Signs Vital signs: Vital Signs Temperature 98.7 F 05/25/25 16:36 Pulse Rate 82 05/25/25 16:36 Respiratory Rate 18 05/25/25 16:36 Blood Pressure 146/76 H 05/25/25 16:36 Pulse Oximetry (%) 99 05/25/25 16:36 Oxygen Delivery Method Room Air 05/25/25 16:36 Discharge Plan Plan Patient Disposition: HOME (Self Care) Prescriptions/Referrals Prescriptions/Med Rec: No Action oxycodone-acetaminophen [Percocet] 5-325 mg tablet 1 tab PO Q4H MDD 6 tabs PRN (Reason: pain) Qty: 30 0RF Rx Instructions: Take 1 tablet as needed every 4-6 hours for moderate to severe pain docusate sodium [Colace] 100 mg capsule 100 mg PO QDAY Qty: 30 0RF Rx Instructions: Take 1 tablet daily for constipation omeprazole 40 mg capsule,delayed release(DR/EC) 40 mg PO .qod Referrals: Anisha Aden MD [Physician, General Surgery] - In 1 week Problem List Clinical Impression: Colostomy care Patient/Caregiver Discharge Instructions Other Activity Instructions:: Follow-up with Dr. Bennett on Wednesday, May 28 as stated. Any worsening of symptoms fever chills or redness bleeding around the site return to the emergency room for reevaluation. Education Materials: Colostomy Answers to Common ... Print Language: Wallisian Stand Alone Forms: Bernarda Award Info., Work/School Release, Patient Portal Info Letter PA/OVER THE RO[employer] DRIVER Supervising Physician PA/OVER THE RO[address] DRIVER Supervising Physician: Emanuel Ornelas ENP
--- NOTE | 2025-05-25 17:24 | PC.NURSE ---
WOUND CARE DONE BY WOUND CARE NURSE KYREE
== END 2025-05-25 17:25 | disposition home or self-care (01) ==
LOC: SERX 17:33
PROVIDERS: Emergency Provider Family Medicine; PCP Family Medicine
DX: Z43.3 Encounter for attention to colostomy (principal)
CPT/HCPCS: 99282

== ENCOUNTER 2025-05-28 12:54 | Outpatient (AMB) | payer OTHER, MEDICARE, SELFPAY ==
[2025-05-28 13:23] VITALS: BP 123/70; PULSE 88; RESP 18; TEMP 36.8; O2SAT 97; BMI 27.6
--- NOTE | 2025-05-28 13:23 | GSCOFFNT_ITS ---
Vital Signs - [facility] 05/28/25 13:23 Height 1.78 m Height Method Measured Weight 87.6 kg Weight Measurement Method Standing Scale BMI 27.6 BP 123/70 Blood Pressure Source Automatic Cuff Blood Pressure Location Left Upper Arm Position Sitting Respiration 18 Pulse 88 Pulse Source Monitor Temp 98.3 F Temp Source Temporal Artery Scan Pulse Oximetry (%) 97 Oxygen Delivery Method Room Air Med/Allergies Allergies & Medications Allergies No Known Allergies Allergy (Verified 05/28/25 13:23) Medication Reconciliation omeprazole 40 mg capsule,delayed release 40 mg PO .qod 04/17/25 [History Confirmed 05/28/25] docusate sodium 100 mg capsule (Colace) 100 mg PO QDAY #30 caps 05/07/25 [Rx Confirmed 05/28/25] oxycodone-acetaminophen 5 mg-325 mg tablet (Percocet) 1 tab PO Q4H PRN pain #30 tabs 05/07/25 [Rx Confirmed 05/28/25] MA Intake Visit Data Collection New Patient or Established: Established Patient (seen at [facility] within 3 years) Seen by Clinical Staff ONLY (RN/MA): No Reason for Visit:: COLEVESICAL FISTULA F/U Pain Present Currently: No Pain Scale Used: Caicedo-Louis/Numerical Seaming Machine Operator Required: No PCP or OBGYN visit in last 3 months: Yes Hx Now: No Do You Feel Safe at Home: Yes Authorities Contacted: N/A Smoking Status Smoking Status: Former smoker Immunization / Flu Flu Vaccine in the Last 12 Months: No Flu Vaccine Exclusion Criteria: Refused by Patient Past Medical History Past Medical History NEUROLOGIC: Negative Neurological Disorders or Seizures CARDIAC: Positive Hypercholesterolemia and Hypertension; Negative Cardiac Disorders or Congestive Heart Failure RESPIRATORY: Negative Chronic Obstructive Pulmonary Disease (COPD) or Asthma GASTROINTESTINAL: Positive Gastrointestinal Disorders, Gastrointestinal Bleed, Diverticulitis, Diverticulosis and Gastroesophageal Reflux Disease GENITOURINARY: Positive Prostate Cancer; Negative Genitourinary Disorders or Renal Disease REPRODUCTIVE: Negative Fibroids or Testicular Cancer MUSCULOSKELETAL: Positive Arthritis ENT: Positive Cataracts ENDOCRINE: Negative Endocrine Disorders, Diabetes Mellitus Type 1 or Diabetes Mellitus Type 2 HEMATOLOGIC: Positive Anemia; Negative Blood Disorders or Sickle Cell Disease PSYCHO/SOCIAL: Negative Depression or Anxiety OTHER HISTORY: Positive Chicken Pox, Measles, Mumps, Cancer and Prostate Cancer; Negative Blood Transfusions, Anesthesia Reactions, Organ Transplant, MRSA, VRSA, Vancomycin-Resistant Enterococci, Human Immunodeficiency Virus (HIV), Clostridium Difficile or Testicular Cancer Family History FAMILY HISTORY: Positive Family Respiratory Disorders, Family Cardiac Disorders, Family Gastrointestinal Problems, Family Cancer and Family Surgery; Negative Family Psychiatric Problems or Family Anesthesia Reaction Surgical History SURGICAL: Positive Abdominal Surgery; Negative Cardiac Surgery, Endocrine Surgery, Thyroidectomy, Ear Surgery, Nephrectomy, Transurethral Resection, Joint Replacement or Organ Transplant Social History SMOKING STATUS: Smoking status: Former smoker ALCOHOL: Alcohol Intake: Current ALCOHOL FREQUENCY: Alcohol Intake Frequency: holidays/special occasions only HOUSING: Housing: House LIVES WITH: Lives With: Family HPI HPI Narrative 75M with 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 Pt went home from SNF last week and was having difficulty pouching the appliance so I recommended he visit ER on 05/25 where he was seen by our claims administrator. She applied stoma paste to the colostomy site as well as hydrofera blue to the midline incision. Today pt reports feeling well overall, he did have to replace the colostomy appliance the night of his ER visit but it has remained in place since then. He feels his appetite is returning to normal and he is having appropriate colostomy output. He is urinating well since the catheter was removed although does notice an urgency that has remained stable ROS Review of Systems Systems Reviewed: All systems reviewed, normal except as documented Objective/Exam General General Appearance: alert, cooperative and well groomed Resp Respiratory exam: Absent respiratory distress Abdominal Abdominal exam: Present soft, incision (midline incision with beefy red granulation tissue) and other (colostomy pink with stool in appliance); Absent distention or tenderness Assessment & Plan Diagnosis / Problem List (1) Colovesical fistula: Status: Acute Assessment & Plan: 75M with 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, s/p scheduled sigmoidectomy with end colostomy 05/02/25 here for wound evalu ation, recovering well overall Plan: F/u in 2 weeks Advanced Care Planning Advance care planning discussed with:: other Office Procedures GNS Level of Care Nursing/Assessment Patient Status: Established Patient Nursing Assessment/Reassesment: Medication Reconciliation, Update PMH in EMR and Vital Signs Coordination of Care: Complex Care and Chronic Disease 1-5, Education Complex Pt/Fam, Consent,records obtained, informed consent, Results/Orders obtained and Staff clarify orders Established Patient Charge Established Patient Point Assignment: 95 Established Patient Point Charge: Level 3 (80-115) Patient Portal Questionaires Social History Living Situation History Housing: House Housing Other:: lives with son Tobacco History Smoking Status: Former smoker Alcohol History Alcohol Intake: Current Alcohol Intake Frequency: holidays/special occasions only Alcohol Intake Frequency Other:: once a month Domestic Abuse History Do You Feel Safe at Home: Yes Review of Systems Report any current symptoms Only answer those that you have currently: Past Medical History Past Medical History Have you ever been diagnosed with any of the following: Neurological Problems Seizures: No Cardiology Problems Hypercholesterolemia: Yes Congestive Heart Failure: No Hypertension: Yes Respiratory Problems Chronic Obstructive Pulmonary Disease (COPD): No Asthma: No Stomache/Intestinal Problems Gastrointestinal Bleed: Yes Diverticulitis: Yes Diverticulosis: Yes Gastroesophageal Reflux Disease: Yes Genital/Urinary Problems Renal Disease: No Prostate Cancer: Yes Reproductive Problems Fibroids: No Testicular Cancer: No Musculoskeletal Problems Arthritis: Yes Head,Eye,Nose,Throat Problems Cataracts: Yes Endocrine Problems Diabetes Mellitus Type 1: No Diabetes Mellitus Type 2: No Blood Problems Anemia: Yes Sickle Cell Disease: No Psychologic Problems Depression: No Anxiety: No Other Problems Blood Transfusions: No Anesthesia Reactions: No Organ Transplant: No MRSA: No VRSA: No Vancomycin-Resistant Enterococci: No Human Immunodeficiency Virus (HIV): No Chicken Pox: Yes Measles: Yes Mumps: Yes Clostridium Difficile: No Cancer: Yes Surgical History Thyroidectomy: No
== END 2025-05-28 13:42 | disposition home or self-care (01) ==
LOC: HODSRG 12:54
PROVIDERS: PCP Family Medicine; Referring Provider Family Medicine; Supervising Provider Surgery; Visit Provider Surgery
DX: Z48.815 Encounter for surgical aftercare following surgery on the digestive system (principal); I10 Essential (primary) hypertension
CPT/HCPCS: 99213; G0463

== ENCOUNTER 2025-06-11 11:26 | Outpatient (AMB) | payer OTHER, MEDICARE, SELFPAY ==
[2025-06-11 11:33] VITALS: BP 148/90; PULSE 80; RESP 18; TEMP 36.7; O2SAT 96
--- NOTE | 2025-06-11 11:33 | PD.GSCLVISIT ---
Vital Signs - [facility] 06/11/25 11:33 Height 1.78 m Height Method Measured Weight 95.283 kg Weight Measurement Method Standing Scale BMI 30.0 BP 148/90 H Blood Pressure Source Automatic Cuff Blood Pressure Location Left Upper Arm Position Sitting Respiration 18 Pulse 80 Pulse Source Monitor Temp 98.0 F Temp Source Temporal Artery Scan Pulse Oximetry (%) 96 Oxygen Delivery Method Room Air Med/Allergies Allergies & Medications Allergies No Known Allergies Allergy (Verified 06/11/25 11:35) Medication Reconciliation omeprazole 40 mg capsule,delayed release 40 mg PO .qod 04/17/25 [History Confirmed 06/11/25] docusate sodium 100 mg capsule (Colace) 100 mg PO QDAY #30 caps 05/07/25 [Rx Confirmed 06/11/25] oxycodone-acetaminophen 5 mg-325 mg tablet (Percocet) 1 tab PO Q4H PRN pain #30 tabs 05/07/25 [Rx Confirmed 06/11/25] MA Intake Visit Data Collection New Patient or Established: Established Patient (seen at [facility] within 3 years) Seen by Clinical Staff ONLY (RN/MA): No Reason for Visit:: 2 WEEK F/U Pain Present Currently: No Pain Scale Used: Caicedo-Louis/Numerical Remote Sensing Engineer Required: No PCP or OBGYN visit in last 3 months: Yes Hx Now: No Do You Feel Safe at Home: Yes Authorities Contacted: N/A Smoking Status Smoking Status: Former smoker Immunization / Flu Flu Vaccine in the Last 12 Months: No Flu Vaccine Exclusion Criteria: Refused by Patient Past Medical History Past Medical History NEUROLOGIC: Negative Neurological Disorders or Seizures CARDIAC: Positive Hypercholesterolemia and Hypertension; Negative Cardiac Disorders or Congestive Heart Failure RESPIRATORY: Negative Chronic Obstructive Pulmonary Disease (COPD) or Asthma GASTROINTESTINAL: Positive Gastrointestinal Disorders, Gastrointestinal Bleed, Diverticulitis, Diverticulosis and Gastroesophageal Reflux Disease GENITOURINARY: Positive Prostate Cancer; Negative Genitourinary Disorders or Renal Disease REPRODUCTIVE: Negative Fibroids or Testicular Cancer MUSCULOSKELETAL: Positive Arthritis ENT: Positive Cataracts ENDOCRINE: Negative Endocrine Disorders, Diabetes Mellitus Type 1 or Diabetes Mellitus Type 2 HEMATOLOGIC: Positive Anemia; Negative Blood Disorders or Sickle Cell Disease PSYCHO/SOCIAL: Negative Depression or Anxiety OTHER HISTORY: Positive Chicken Pox, Measles, Mumps, Cancer and Prostate Cancer; Negative Blood Transfusions, Anesthesia Reactions, Organ Transplant, MRSA, VRSA, Vancomycin-Resistant Enterococci, Human Immunodeficiency Virus (HIV), Clostridium Difficile or Testicular Cancer Family History FAMILY HISTORY: Positive Family Respiratory Disorders, Family Cardiac Disorders, Family Gastrointestinal Problems, Family Cancer and Family Surgery; Negative Family Psychiatric Problems or Family Anesthesia Reaction Surgical History SURGICAL: Positive Abdominal Surgery; Negative Cardiac Surgery, Endocrine Surgery, Thyroidectomy, Ear Surgery, Nephrectomy, Transurethral Resection, Joint Replacement or Organ Transplant Social History SMOKING STATUS: Smoking status: Former smoker ALCOHOL: Alcohol Intake: Current ALCOHOL FREQUENCY: Alcohol Intake Frequency: holidays/special occasions only HOUSING: Housing: House LIVES WITH: Lives With: Family HPI HPI Narrative 75M with 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 Pt states his colostomy output has been more loose lately and he had an episode of spillage recently, but overall he feels more comfortable managing the stoma appliance. His peristomal skin is healing well and his appetite is intact. He denies any pain ROS Review of Systems Systems Reviewed: All systems reviewed, normal except as documented Objective/Exam General General Appearance: alert, cooperative and well groomed Resp Respiratory exam: Absent respiratory distress Abdominal Abdominal exam: Present soft, incision (midline incision with minimal fibrinous tissue at base which was bluntly removed, beefy red granulation tissue underneath) and other (colostomy pink with brown stool in appliance); Absent distention or tenderness Assessment & Plan Diagnosis / Problem List (1) Colovesical fistula: Status: Acute Assessment & Plan: 75M with 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 I advised pt to resume fiber to mitigate loose stools Plan: F/u in 4 weeks Advanced Care Planning Advance care planning discussed with:: other Office Procedures GNS Level of Care Nursing/Assessment Patient Status: Established Patient Nursing Assessment/Reassesment: Medication Reconciliation, Update PMH in EMR and Vital Signs Coordination of Care: Complex Care and Chronic Disease 1-5, Education Complex Pt/Fam, Consent,records obtained, informed consent, Results/Orders obtained and Staff clarify orders Established Patient Charge Established Patient Point Assignment: 95 Established Patient Point Charge: EP Level 3 (80-115) Patient Portal Questionaires Social History Living Situation History Housing: House Housing Other:: lives with son Tobacco History Smoking Status: Former smoker Alcohol History Alcohol Intake: Current Alcohol Intake Frequency: holidays/special occasions only Alcohol Intake Frequency Other:: once a month Domestic Abuse History Do You Feel Safe at Home: Yes Review of Systems Report any current symptoms Only answer those that you have currently: Past Medical History Past Medical History Have you ever been diagnosed with any of the following: Neurological Problems Seizures: No Cardiology Problems Hypercholesterolemia: Yes Congestive Heart Failure: No Hypertension: Yes Respiratory Problems Chronic Obstructive Pulmonary Disease (COPD): No Asthma: No Stomache/Intestinal Problems Gastrointestinal Bleed: Yes Diverticulitis: Yes Diverticulosis: Yes Gastroesophageal Reflux Disease: Yes Genital/Urinary Problems Renal Disease: No Prostate Cancer: Yes Reproductive Problems Fibroids: No Testicular Cancer: No Musculoskeletal Problems Arthritis: Yes Head,Eye,Nose,Throat Problems Cataracts: Yes Endocrine Problems Diabetes Mellitus Type 1: No Diabetes Mellitus Type 2: No Blood Problems Anemia: Yes Sickle Cell Disease: No Psychologic Problems Depression: No Anxiety: No Other Problems Blood Transfusions: No Anesthesia Reactions: No Organ Transplant: No MRSA: No VRSA: No Vancomycin-Resistant Enterococci: No Human Immunodeficiency Virus (HIV): No Chicken Pox: Yes Measles: Yes Mumps: Yes Clostridium Difficile: No Cancer: Yes Surgical History Thyroidectomy: No
== END 2025-06-11 11:57 | disposition home or self-care (01) ==
LOC: HODSRG 11:26
PROVIDERS: PCP Family Medicine; Referring Provider Family Medicine; Supervising Provider Surgery; Visit Provider Surgery
DX: N32.1 Vesicointestinal fistula (principal); K57.80 Diverticulitis of intestine, part unspecified, with perforation and abscess without bleeding
CPT/HCPCS: 99213; G0463